=== PATIENT | female | born 1990 | race Caucasian/White ===

== ENCOUNTER 2019-02-10 00:44 | Emergency (ER) | payer OTHER, SELFPAY ==
[2019-02-10 00:45] VITALS: PULSE 67; RESP 14; TEMP 35.8; O2SAT 100; BMI 20.9
--- NOTE | 2019-02-10 00:56 | ED.VIS.GEN ---
History of Present Illness Chief Complaint: Hypoglycemia Narrative: Patient received NovoLog through a insulin pump and over the last few days has had her blood sugars dropping. She is trying to dial back her insulin by 2 units but tonight her had a hard time arousing her in the bed. EMS was called and her blood sugar was 40. They gave a dose of D50. They turn off her insulin pump. She has had diabetes for years. She states that sometimes she runs low in the 50s. She states she does not remember this incident. Currently she feels okay. She does see endocrinology as well. Her insulin short acting NovoLog. Past Medical History - Allergies and Home Meds Allergies/Adverse Reactions: Allergies gluten Allergy (Verified 10/11/17 21:01) Other adhesive tape Adverse Reaction (Verified 02/10/19 01:44) Rash Primary Care Physician: Bertrand Jordan MD [Primary Care Provider] - Prior records reviewed: Yes Past Medical History: - - DM Surgical History: noncontributory Lives: Spouse/ Significant Other Smoking Status: Never smoker Alcohol: None Drugs: None Review of Systems General: Denies: Chills, Fever, Sweats Eyes: Denies: Visual changes - bilaterally, Diplopia ENT: Denies: Rhinorrhea, Sore throat Cardiovascular: Denies: Chest pain, Palpitations Respiratory: Denies: Dyspnea, Cough, Dyspnea on exertion Gastrointestinal: Denies: Abdominal pain, Nausea, Vomiting, Diarrhea, Melena, Hematochezia Genitourinary: Denies: Dysuria, Hematuria, Frequency Musculoskeletal: Denies: Back pain, Extremity Pain Skin: Denies: Rash, Wounds Neurological: Denies: Headache, Weakness, Numbness Physical Exam Vital Signs/Narrative: Vital Signs Temp Pulse Resp Pulse Ox 02/10/19 00:45 96.5 F L 67 14 100 General: Well nourished, Well developed, No Acute Distress Head: Normocephalic, Atraumatic Eyes: Perrl, EOMI ENT: Moist mucous membranes, No rhinorrhea Neck: Supple, Nontender Cardiovascular: Regular rate, Regular rhythm, No murmurs Respiratory: No distress, CTA bilaterally, Chest nontender Abdomen: Soft, Nontender, Nondistended, Normal bowel sounds Back: Nontender, Normal Inspection Extremities: Nontender, No edema Skin: Normal color, No rash, - - Infiltration right antecubital from IV start attempt by EMS this soft tissue swelling and inflammation is on the medial aspect of the right bicep intermediate up and the proximal portion of the right forearm Neurological: Alert, Oriented x3, Cranial nerves II-XII grossly intact, Normal Strength, Normal Sensation Psychological: Normal affect, Normal Mood Diagnostic/Tx/Re-eval - Medical Decision Making Blood sugar 90 in the emergency department. Patient given p.o. Monitored. Blood sugar came back into the 200s. She restarted her insulin is a very low rate. The extravasated D50 was monitored. It caused her some discomfort. Protocol was done with hyaluronidase injection in 5 different points along the area to try to help with the reaction she is having. This area was monitored. It did not get worse. There is no evidence of compartment syndrome. Patient will follow-up as an outpatient. She understands that the inflammation in her arm could last weeks or months to go away. She will follow-up for this. To return if it worsens. ED Disposition - Plan for ED Patient: Disposition: Home or Assisted Living Diagnosis: Hypoglycemic episode in patient with diabetes mellitus, Extravasation injury of IV catheter site with other complication Instructions: ED Diabetes Hypoglycemia Insulin React Referrals: Bertrand Jordan MD [Primary Care Provider] - Additional Instructions: Please follow-up with your family doctor for further evaluation of your swelling in her arm due to the extravasation of dextrose. You were given injections of hyaluronidase to lessen the effect. This can take weeks to months to go away completely
[2019-02-10 01:01] LABS: Bedside Glucose 90 mg/dL (70-110)
--- NOTE | 2019-02-10 01:15 | ED.RN ---
UPON ASSESSMENT OF PT. PT STATES HER RIGHT ARM IS VERY SORE AND PAINFUL. THIS ARM HAD AN IV PLACED IN THE AC BY [facility]. [facility] REPORTS THEY GAVE D50. PT'S ARM IS SWOLLEN AND RED, I AM CONCERNED THAT THE PT'S ARM IS INFILTRATED. NOTIFIED DR. PEREZ. NO NEW ORDERS AT THIS TIME.
[2019-02-10 01:45] VITALS: BP 104/75
[2019-02-10 02:46] VITALS: BP 102/64; PULSE 81; RESP 16; O2SAT 100
--- NOTE | 2019-02-10 02:47 | ED.RN ---
REVIEWED DISCHARGE INSTRUCTIONS AND ANSWER QUESTIONS. REVIEWED SIGNS AND SYMPTOMS WITH ARM PAIN AND/OR PROBLEMS. PT AMBULATED TO LOBBY WITH A STEADY AND INDEPENDENT GAIT WITH SPOUSE. NO IV PLACED BY [facility].
== END 2019-02-10 02:48 | disposition home or self-care (01) ==
PROVIDERS: Emergency Provider Emergency Medicine; Family Provider Family Medicine; PCP Family Medicine
DX: E11.649 Type 2 diabetes mellitus with hypoglycemia without coma (principal); T80.89XA Other complications following infusion, transfusion and therapeutic injection, initial encounter; Z96.41 Presence of insulin pump (external) (internal); Z79.4 Long term (current) use of insulin
CPT/HCPCS: 82962; 90471; 96372; 99283; J3470

== ENCOUNTER → 2025-05-21 | Outpatient (CLI) | payer OTHER, SELFPAY ==
--- NOTE | 2025-05-21 18:08 | CT_ITS ---
PROCEDURE: ABDOMEN/PELVIS WITH CONTRAST 05/21/2025 REASON FOR EXAM: LLQ PAIN TECHNIQUE: ABDOMEN/PELVIS WITH CONTRAST Coronal and Sagittal reconstruction series were provided. CONTRAST: Isovue 300 VOLUME: 99 mL One or more dose reduction techniques were used (e.g., Automated exposure control, adjustment of the mA and/or kV according to patient size, use of iterative reconstruction technique. RADIATION DOSE SUMMARY: CTDlvol: 21 mGy DLP: 380 mGycm COMPARISON: No FINDINGS: Clear lung bases. Normal heart size. Unremarkable liver, gallbladder, pancreas, spleen, adrenal glands, kidneys. No hydronephrosis or ureteral stone. Normal bladder. Normal uterus and left ovary. Status post tubal ligation. Involuting right ovarian cyst. Small pelvic fluid. No retroperitoneal or pelvic adenopathy. No free air. Nondistended bowel. Normal appendix. No acute large bowel findings. No acute abdominal wall findings. CT/Abdomen/Pelvis WITH Contrast IMPRESSION: Recent right ovarian cyst rupture with small pelvic fluid, this can be a cause of pain. Reading Location: [place] [id number]
[2025-05-21 18:33] LABS: CREATININE FINGERSTICK < 1.0 mg/dL (0.55-1.02); EGFR FINGERSTICK > 60.0000 mL/min (>60)
== END | disposition home or self-care (01) ==
LOC: CT 17:51
PROVIDERS: PCP Family Medicine; Referring Provider Physician Assistant; Visit Provider Physician Assistant
DX: R19.7 Diarrhea, unspecified (principal); R10.32 Left lower quadrant pain
CPT/HCPCS: 74177; Q9967

== ENCOUNTER 2025-06-12 07:50 | Day surgery (SDC) | payer OTHER, SELFPAY ==
[2025-06-12] VITALS (9 sets, daily range): BP systolic 97–107; BP diastolic 50–66; PULSE 54–92; RESP 12–16; TEMP 36.4–37.1; O2SAT 99–100; BMI 20.9
[2025-06-12] MEDS: Lactated Ringers 1,000 ML 15 ML IV (08:23)
--- NOTE | 2025-06-12 08:51 | PRE.ANES_ITS ---
ASA Classification* ASA Classification ASA Classification: 2 Assessment & Plan Anesthesia* Anesthesia Assessment Anesthesia Assessment: Discussed sedation and/or anesthesia options, risks, benefits, and alternatives with patient/parents/legal guardian/POA. Questions invited. The patient/parents/legal guardian/POA seems to understand and agrees to proceed with anesthesia plan. Reviewed the physical assessment, medical history, allergy history and patient home medications list prior to surgery/procedure/anesthetic and documented any changes. Performed airway and anesthesia risk assessments. Anesthesia Type Anesthesia Type: MAC History Source History Obtained from:: Patient and Chart Anesthesia Focused Assessment* Temperature: 98.8 F Pulse Rate: 67 Respiratory Rate: 16 Pulse Ox: 100 Oxygen Delivery Method: Room Air Airway Assessment Mouth opens: >3 cm Mallampati Score: I Teeth Condition: Intact Neck Range of motion (ROM): Full ROM Labs Anesthesia Preop lab: CBC WBC 14.3 K/mm3 (4.4-11.0) H 10/11/17 21:40 7 RBC 4.65 M/mm3 (4.2-5.4) 10/11/17 21:40 10/11/17 Hgb 14.8 g/dl (12.0-15.0) 10/11/17 21:40 10/11/17 Hct 42.8 % (37-47) 10/11/17 21:40 10/11/17 Plt Count 210 K/mm3 (150-450) 10/11/17 21:40 10/11/17 CHEMISTRY Potassium 4.3 mmol/L (3.5-5.1) 10/11/17 21:40 10/11/17 Sodium 140 mmol/L (136-145) 10/11/17 21:40 10/11/17 BUN 19 mg/dL (7-18) H 10/11/17 21:40 10/11/17 Creatinine 0.92 mg/dL (0.55-1.02) 10/11/17 21:40 10/11/17 Glucose 157 mg/dL (70-110) H 10/11/17 21:40 10/11/17 POC Glucose 90 mg/dL (70-110) 02/10/19 00:53 02/10/19 COAG Pre-Assessment Diagnosis/Proposed Procedure Planned Operative Procedure(s): Colonoscopy Anesthesia History 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 When Was Last Pacemaker Check QUESTION #4 FULL TEXT: You/Your Family Experience fever (hyperthermia) with Anesthesia Last Oral Intake Last Oral intake: Last Oral Intake NPO since 19:45 06/12/25 08:16 Meds taken in AM with sips of No 06/12/25 08:16 water? Meds patient instructed to take am of surgery PONV PONV - printer repair technician: PONV - printer repair technician Female Yes 06/07/25 13:01 HX of Motion Sickness Yes 06/07/25 13:01 HX of N/V After Surgery No 06/07/25 13:01 Non-Smoker Yes 06/07/25 13:01 Duration of Surgery greater No 06/07/25 13:01 than 60 minutes Number of Risk Factors 3 06/07/25 13:01 PONV Score Moderate Risk 06/07/25 13:01 Height & Weight Height & Weight: Anesthesia: Height & Weight Height 5 ft 5 in 06/12/25 08:16 Weight: 57 kg 06/12/25 08:16 Body Mass Index (BMI) 20.9 06/12/25 08:16 Respiratory Assessment Respiratory Assessment - printer repair technician: Respiratory Tract Infection Hx - printer repair technician Hx Respiratory Tract Infection No 06/07/25 13:01 STOP Sleep Apnea STOP Sleep Apnea - printer repair technician: STOP Sleep Apnea - printer repair technician Hx Hypertension No 06/07/25 13:01 Hx Sleep Apnea No 06/07/25 13:01 CPAP BIPAP Do you snore loudly (louder No 06/07/25 13:01 than talking or can be heard Do you often feel tired/ No 06/07/25 13:01 fatigued/ sleepy during daytime? Has anyone observed you stop No 06/07/25 13:01 breathing during sleep? STOP Results Negative 06/07/25 13:01 QUESTION #5 FULL TEXT : Do you snore loudly (louder than talking or can be heard through closed doors)? 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 Specify any problems Hx of Preganancy in last 3 No 06/07/25 13:01 Months Nurse Filling Out Transfusion JZOLLINGE 06/07/25 13:01 & Questions: Date: 06/07/25 06/07/25 13:01 Time: 13:02 06/07/25 13:01 Patient unable to answer at this time (ie. confused, unrespo /Reproduction History /Reproductive History - printer repair technician: /Reproductive Hx- printer repair technician Hx Now No 06/07/25 13:01 Gestational Age (in weeks): EDC: Hx Hx Para Hx Section SAB No 06/07/25 13:01 Active Medications Active Medications: Current Medications Generic Name Dose Route Start Last Admin Trade Name Bishopq PRN Reason Stop Dose Admin Lactated Ringer's 1,000 mls @ 15 mls/hr 06/12/25 08:15 06/12/25 08:23 IV 15 mls/hr .Q48H ANDREW Administration PFSH Medical History Insulin dependent diabetes mellitus Loss of consciousness Dietary restriction Non-smoker Celiac disease Home Medications ?Medication ?Instructions ?Recorded ?Last Taken ?Type insulin lispro 100 unit/mL 1 sliding scale dose SQ NATHAN LY 02/10/19 Unknown History subcutaneous solution (Humalog U-100 Insulin) Allergy/AdvReac Type Severity Reaction Status Date / Time gluten Allergy Other Verified 06/07/25 12:56 adhesive tape AdvReac Rash Verified 06/07/25 12:56 Family History Mother Osteoporosis Skin cancer Thyroid disorder Father Cancer throat Surgical History (Updated 06/12/25 @ 08:[address] Kevin Vazquez MD) H/O esophagogastroduodenoscopy Encounter for Essure implantation Social History Smoking Status: Never smoker Review of Systems (Anesthesia) ROS Narrative System reviewed and no additional complaints, except as documented.
--- NOTE | 2025-06-12 09:00 | COLBX_PTH ---
PATIENT: KRISTOPHER WALSH LOC: EN U#:[id number] AGE/SX: 34/F ROOM: RE06/12/[address]: Dr. Vinay Ochoa MD : 1990 BED: DIS: 06/12/2025 SPEC #: [id number] RECD: 06/12/25 10:19 STATUS: SEBASTIAN REQ #: [id number] PERLA: 06/12/25 09:[address]: Vinay Ochoa DEPT: SURGICAL PATHOLOGY RECD BY: Michael Lance ENTERED: 06/12/25 14:54 SP TYPE: COLON BX OTHR DR: Dr. Bertrand Jordan MD Tissues: A - COLON BIOPSY Procedures: Trichrome (control) Special Stain Group I Surgery Specimen Level IV HEADER OPERATION: Colonoscopy, biopsy PRE-OP DIAGNOSIS: Encounter for screening for malignant neoplasm of colon, diarrhea TISSUE SUBMITTED: A- Random colonic biopsy MICROSCOPIC DIAGNOSIS A. Colon, random, biopsy: - Focal active colitis with patchy intraepithelial lymphocytosis - see note. - Trichrome stain is negative for significant thickening of the subepithelial collagen table. Note: The findings are suggestive of lymphocytic (microscopic) colitis. The differential diagnosis includes infection and medication injury reaction. Recommend correlation with clinical and endoscopic findings. MICROSCOPIC DESCRIPTION Slides are reviewed. All matched controls reacted appropriately. These tests were developed and their performance characteristics determined by [facility]. They may not have been cleared or approved by the U.S. Food and Drug Administration. The FDA has determined that such clearance or approval is not necessary.? The above immunohistochemical?markers are reviewed by the Pathologist. GROSS DESCRIPTION A. Received in fixative is one container labeled with the patient's name and designated Random colon biopsy. The specimen consists of multiple irregular fragments of light bella soft tissue that in aggregate measure 1 x 0.6 x 0.1 cm. The specimen is totally submitted in one cassette. OK 06/12/2025 CPT:71630,11180
--- NOTE | 2025-06-12 09:10 | HP.PCM_ITS ---
HPI - General General Date of Admission: 06/12/25 Date of Service: 06/12/25 Chief Complaint: diarrhea HPI Narrative KRISTOPHER WALSH, is a 34 F who presents for colonoscopy The patient is a 34-year-old female who is being seen today for colonoscopy to further evaluate ongoing issues with diarrhea. She has undergone numerous stool studies without abnormality. She also underwent a recent CT scan that was normal as well. [facility] Medical History (Updated 06/12/25 @ 08:[address] Kevin Vazquez MD) Insulin dependent diabetes mellitus Loss of consciousness Dietary restriction Non-smoker Celiac disease Home Medications ?Medication ?Instructions ?Recorded ?Last Taken ?Type insulin lispro 100 unit/mL 1 sliding scale dose SQ NATHAN LY 02/10/19 Unknown History subcutaneous solution (Humalog U-100 Insulin) Allergy/AdvReac Type Severity Reaction Status Date / Time gluten Allergy Other Verified 06/07/25 12:56 adhesive tape AdvReac Rash Verified 06/07/25 12:56 Family History Mother Osteoporosis Skin cancer Thyroid disorder Father Cancer throat Surgical History (Updated 06/12/25 @ 08:[address] Kevin Vazquez MD) H/O esophagogastroduodenoscopy Encounter for Essure implantation Social History Smoking Status: Never smoker Vital Signs Vital Signs Vital Signs: 06/12/25 08:16 06/12/25 08:16 06/12/25 08:59 Temperature 98.8 F 98.8 F Temperature Source Temporal Pulse Rate 67 67 Respiratory Rate 16 16 Respiratory Pattern Normal Blood Pressure Source Monitor Blood Pressure Position Sitting Blood Pressure Location Left Arm Pulse Ox 100 100 Oxygen Delivery Method Room Air Room Air Weight Weight: 125 lb 10.616 oz Body Mass Index (BMI) 20.9 Physical Exam Const alert, oriented x3 and no apparent distress Assessment & Plan Assessment/Plan (1) Encounter for screening for malignant neoplasm of colon: (2) Diarrhea:
--- NOTE | 2025-06-12 09:55 | OP.PROVAT_ITS ---
06/12/2025 Bertrand Jordan Re : Colonoscopy procedure for Eve Eastman Dear Julian This procedure was performed on Thursday, June 12, 2025. My impressions and recommendations are as follows: Impressions : - Erythematous mucosa in the ascending colon. - The examination was otherwise normal on direct and retroflexion views. - Multiple biopsies were obtained in the entire colon. Recommendations : - Discharge patient to home (ambulatory). - High fiber diet. - Await pathology results. - Repeat colonoscopy for surveillance based on pathology results. - Return to my office PRN. - Continue present medications. My findings are described in the full procedure note, which is enclosed. If I can be of further assistance, please feel free to contact me at . Sincerely, Vinay Ochoa MD 06/12/2025 9:54:24 AM This report has been signed electronically.
--- NOTE | 2025-06-12 09:55 | OP.COLON_ITS ---
Patient Name: Eve Eastman Procedure Date: 06/12/2025 9:10 AM Date of : 1990 Age: 34 Procedure: Colonoscopy Indications: Clinically significant diarrhea of unexplained origin Providers: Vinay Ocoha MD Referring MD: Bertrand Jordan Medicines: Monitored Anesthesia Care Patient Profile: Refer to note in patient chart for documentation of history and physical. Patient has symptoms of chronic diarrhea. Last Colonoscopy: none. The patient's first colonoscopy is today. Complications: No immediate complications. Estimated blood loss: None. Procedure: Pre-Anesthesia Assessment: - Prior to the procedure, a History and Physical was performed, and patient medications and allergies were reviewed. The patient's tolerance of previous anesthesia was also reviewed. The risks and benefits of the procedure and the sedation options and risks were discussed with the patient. All questions were answered, and informed consent was obtained. Prior Anticoagulants: The patient has taken no anticoagulant or antiplatelet agents. ASA Grade Assessment: I - A normal, healthy patient. After reviewing the risks and benefits, the patient was deemed in satisfactory condition to undergo the procedure. After I obtained informed consent, the scope was passed under direct vision. Throughout the procedure, the patient's blood pressure, pulse, and oxygen saturations were monitored continuously. The colonoscope was introduced through the anus and advanced to the cecum, identified by appendiceal orifice and ileocecal valve. The ileocecal valve, appendiceal orifice, and rectum were photographed. The entire colon was well visualized. The colonoscopy was performed without difficulty. The patient tolerated the procedure well. The quality of the bowel preparation was adequate. Moderate Sedation: See the other procedure note for documentation of moderate sedation with intraservice time. Scope In: 9:21:46 AM Scope Withdrawal Time 0 hours 11 minutes 24 seconds Scope Out: 9:47:56 AM Total Procedure Duration Time 0 hours 26 minutes 10 seconds Findings: The perianal and digital rectal examinations were normal. A segmental area of mildly erythematous mucosa was found in the ascending colon. Multiple biopsies were obtained with cold forceps for diagnostic purposes randomly in the entire colon. Verification of patient identification for the specimen was done by the nurse using the patient's name, date and medical record number. Estimated blood loss was minimal. The exam was otherwise without abnormality on direct and retroflexion views. Impression: - Erythematous mucosa in the ascending colon. - The examination was otherwise normal on direct and retroflexion views. - Multiple biopsies were obtained in the entire colon. Recommendation: - Discharge patient to home (ambulatory). - High fiber diet. - Await pathology results. - Repeat colonoscopy for surveillance based on pathology results. - Return to my office PRN. - Continue present medications. Procedure Code(s): --- Professional --- 52407, Colonoscopy, flexible; with biopsy, single or multiple Diagnosis Code(s): --- Professional --- R19.7, Diarrhea, unspecified K63.89, Other specified diseases of intestine CPT copyright 2021 [employer]. All rights reserved. The codes documented in this report are preliminary and upon airline mechanic review may be revised to meet current compliance requirements. Vinay Ochoa MD 06/12/2025 9:54:24 AM This report has been signed electronically. Number of Addenda: 0 Note Initiated On: 06/12/2025 9:10 AM
--- NOTE | 2025-06-12 09:57 | PCM.POST.ANE ---
Anesthesia: Postop Eval I Current Vital Signs Temperature: 97.8 F Pulse Rate: 78 Blood Pressure: 104/66 Respiratory Rate: 16 Pulse Ox: 99 Oxygen Delivery Method: Room Air Assessment Airway patent: Yes Spontaneous unlabored respirations: Yes Mental status: Awake nausea: No Vomiting: No Anesthesia Complication: No Fluid Hydration Crystalloid volume administer (ml): 600 Total IV fluid infused: 600 Progress Note Anesthesia document: Postop Eval 1 completed: Yes
== END 2025-06-12 10:38 | disposition home or self-care (01) ==
LOC: EN 07:50 → AC 07:51
PROVIDERS: PCP Family Medicine; Referring Provider Family Medicine; Visit Provider Surgery
PROC: 0DJD8ZZ Inspection of Lower Intestinal Tract, Via Natural or Artificial Opening Endoscopic (ICD-10-PCS; CPT 45378; principal; 2025-06-12 08:55)
DX: Z12.11 Encounter for screening for malignant neoplasm of colon (principal); E11.9 Type 2 diabetes mellitus without complications; Z79.4 Long term (current) use of insulin; K52.9 Noninfective gastroenteritis and colitis, unspecified; K90.0 Celiac disease
CPT/HCPCS: 45380; 88305; 88312; J2405

== ENCOUNTER → 2025-10-13 | Outpatient (CLI) | payer OTHER, SELFPAY ==
--- OUTSIDE RECORDS SUMMARY | 2025-10-13 08:24 | XMS RPT_ITS | CCD ---
Author Organization [facility] Care Team Providers Care Mold Designer Name Role Phone Bertrand Wallace MD Primary Care Provider Carlos OLIVAS, Mckenna Unavailable Uvaldo MORA, Clover Unavailable Unavailable MAIKEL FRANCOIS Attending Unavailable MAIKEL FRANCOIS Primary Care Unavailable MAIKEL FRANCOIS Admitting Unavailable Bertrand Wallace MD Primary Care Provider Carlos OLIVAS, Mckenna Unavailable Uvaldo MORA, Clover Unavailable Unavailable Sean MORA, Maribell Unavailable Unavailable Haagen SENIOR ACTUARIAL ANALYST.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 CLERK, Kelly Unavailable Suppan SENIOR ACTUARIAL ANALYST.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 CLERK, Marielos A Unavailable [phone] Suppan SENIOR ACTUARIAL ANALYST.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 CLERK, Marielos A Unavailable Health, Employee Attending Provider Dr. Bertrand Wallace MD Primary Care Provider Maya Swartz Attending Provider Maya Swartz Referring Provider Dr. Bertrand Wallace MD Referring Provider Dr. Vinay Ochoa MD Attending Provider Bertrand Wallace Primary Care Unavailable Bertrand Wallace Referring Unavailable Vinay Ochoa Attending Unavailable Bertrand Wallace Primary Care Unavailable Maya Swartz Attending Unavailable Maya Swartz Referring Unavailable Assessment, Health Risk Attending Unavaila ble Assessment, Health Risk Referring Unavaila ble Bertrand Wallace Primary Care Unavailable Bertrand Wallace Primary Care Unavailable Bertrand Wallace Referring Unavailable Vinay Ochoa Attending Unavailable Bertrand Wallace Primary Care Unavailable Vinay Ochoa Attending Unavailable JEANNA MCQUEEN Attending Unavailable BERTRAND WALLACE Primary Care Unavailable MAYA ROTHMAN Attending Unavailable BERTRAND WALLACE Primary Care Unavailable MAYA ROTHMAN Referring Unavailable BERTRAND WALLACE Primary Care Unavailable Allergies Allergy Classification Reported Allergen(s) Allergy Type Date of Onset Reaction(s) Facility (16 sources) Adhesive agent; Translations: [ADHESIVE] Drug Allergy 7 Rash, Itching [facility] (20 sources) Wheat gluten extract; Translations: [GLUTEN] Drug Allergy 3 Other: See Comments [facility] Work Phone: (20 sources) Adhesive agent Drug Allergy 7 Rash, Itching [facility] (4 sources) Adhesive Tape; Translations: [adhesive tape] Propensity to adverse reactions [address] [facility] (1 source) Gluten Drug allergy (disorder) [address] [facility] Repository Medications Current Medications Medication Drug Class(es) Dates Sig (Normalized) Sig (Original) atropine sulfate 0.025 mg / diphenoxylate hydrochloride 2.5 mg oral tablet (3 sources) Anticholinergic, Cholinergic Muscarinic Antagonist, Antidiarrheal Start: 05-15-2025 End: 05-22-2025 take 1 tablet by mouth once at bedtime diphenoxylate-atr opine (LOMOTIL) 2.5-0.025 mg per tablet Indications: Diarrhea, unspecified type , Left lower quadrant abdominal pain Take 1 tablet by mouth before meals and at bedtime for 7 days. 28 tablet 05/15/2025 Active benoxinate hydrochloride 4 mg/ml / fluorescein sodium 3 mg/ml ophthalmic solution (4 sources) Diagnostic Dye Start: 05-10-2025 End: 05-11-2025 fluorescein-benox inate 0.3-0.4 % 1 drop (FLURESS) Start: 05-10-2025 End: 05-11-2025 1 drop, BOTH EYES, DIRECT ED, Starting on Estefania 05/10/25 at 1430, Until Wed05/11/25 at 0229, Administer for applanation tonometry. In the event of a Fluress shortage, administer [place]-Fluor 1 drop into both eyes as directed for applanation tonometry Start: 05-09-2024 End: 05-10-2024 fluorescein-benoxinate 0.3-0 .4 % 1 Drop (FLURESS) Blood-Glucose Meter (CONTOUR METER) monitoring kit (2 sources) Start: 04-11-2025 End: 04-12-2025 Blood-Glucose Meter (CONTOUR METER) monitoring kit 1 each as needed for up to 1 day. 1 each 04/11/2025 04/12/2025 Active Blood-Glucose Meter (CONTOUR NEXT METER) (1 source) Start: 07-06-2025 Blood-Glucose Meter (CONTOUR NEXT METER) Indications: Controlled diabetes mellitus type 1 without complications (HCC) Use to test blood glucose as directed. 1 each 07/06/2025 Active Blood-Glucose Sensor (DEXCOM G7 SENSOR) faustino (5 sources) Start: 11-06-2024 End: 11-16-2024 Blood-Glucose Sensor (DEXCOM G7 SENSOR) faustino 1 Each as directed for 10 days. 9 Each 3 11/06/2024 11/16/2024 Active Start: 08-08-2024 End: 08-18-2024 Blood-Glucose Sensor (DEXCOM G7 SENSOR) faustino 1 Each as directed for 10 days. 9 Each 3 08/08/2024 08/18/2024 Active enteric contrast (will be provided with radiology test) (1 source) Start: 05-15-2025 End: 05-16-2025 enteric contrast (will be provided with radiology test) For CT ABD/PEL W IVCON Routine order Administer, As Directed One Time Only, via Oral, Rectal, both Oral and Rectal, Enteric Tube, Stoma or Indwelling Catheter, Enteric Contrast as designated per enteric contrast guidelines 1 each 05/15/2025 05/16/2025 Active glucagon 3 mg nasal powder (20 sources) Antihypoglycemic Agent Start: 10-14-2022 End: 11-06-2024 glucagon (BAQSIMI) 3 mg/actuation nasal spray Use 1 [place] in the nose as needed for low blood sugar. May repeat after 15 minutes using a new device if there is no response. 2 Each 3 11/06/2024 Active Start: 08-11-2021 End: 10-14-2022 glucagon HCl (GLUCAGON, HCL, EMERGENCY KIT) 1 mg solr Use as directed 1 Each 1 08/11/2021 10/14/2022 Discontinued Comment on above: Use as directed Use 1 [place] in the n ose as needed for low blood sugar. May repeat after 15 minutes using a new device if there is no response. insulin aspart, human 100 unt/ml injectable solution (4 sources) Insulin Analog Start: 08-09-2024 insulin aspart, niacinamide, (FIASP) 100 unit/mL soln use as directed via insulin pump with max of 60 units daily 100 mL 3 08/09/2024 Active Start: 08-08-2024 End: 08-08-2024 Insulin Aspart (NOVOLOG) 100 unit/mL crtg Indications: Controlled diabetes mellitus type 1 without complications (HCC) , Insulin pump in place use as directed via insulin pump with max of 50 units 100 mL 3 08/08/2024 08/08/2024 Discontinued 3 ml insulin glargine 100 unt/ml pen injector (20 sources) Insulin Analog Start: 09-24-2023 End: 09-23-2024 insulin glargine (LANTUS SOLOSTAR U-100 INSULIN) 100 unit/mL (3 mL) Indications: Controlled diabetes mellitus type 1 without complications (HCC) Inject 50 Units subcutaneously once daily. In case of pump failure. 5 Each 09/24/2023 Active Start: 09-24-2023 End: 09-23-2024 insulin glargine (LANTUS RIGO OSTAR U-100 INSULIN) 100 unit/mL (3 mL) Indications: Controlled diabetes mellitus type 1 without complications (HCC) Inject 50 Units subcutaneously once daily. In case of pump failure. 5 Each 09/24/2023 09/23/2024 Active Start: 04-29-2022 End: 04-29-2023 insulin glargine (LANTUS RIGO OSTAR U-100 INSULIN) 100 unit/mL (3 mL) Indications: Controlled diabetes mellitus type 1 without complications (HCC) Inject 50 Units subcutaneously once daily. In case of pump failure. 5 Pen 04/29/2022 Active Start: 04-15-2020 End: 04-29-2023 insulin glargine (LANTUS RIGO OSTAR U-100 INSULIN) 100 unit/mL (3 mL) Indications: Controlled diabetes mellitus type 1 without complications (HCC) Inject 50 Units subcutaneously once daily. In case of pump failure. 04/15/2020 04/29/2022 Discontinued Comment on above: Inject 50 Units subc utaneously once daily. In case of pump failure. insulin lispro 100 unt/ml injectable solution (20 sources) Insulin Analog Start: 08-10-2024 End: 11-06-2024 insulin lispro (HUMALOG U-100 INSULIN) 100 unit/mL injection USE DIRECTED VIA INSULIN PUMP-MAX IS 60 UNITS DAILY 100 mL 4 11/06/2024 Active Start: 09-24-2023 insulin lispro (HUMALOG KWIKPEN INSULIN) 100 unit/mL Use as directed. Max dosage up to 50 units per day. 5 Each 11 09/24/2023 Active Start: 03-18-2023 End: 08-09-2024 insulin lispro 100 unit/mL injection Indications: Controlled diabetes mellitus type 1 without complications (HCC) , Insulin pump in place use as directed via insulin pump with max of 50 units daily 100 mL 4 08/08/2024 08/09/2024 Discontinued (Not on Formulary) Start: 10-22-2020 End: 01-12-2022 insulin lispro (HUMALOG U-10 0 INSULIN) 100 unit/mL injection USE DIRECTED VIA INSULIN PUMP-MAX IS 50 UNITS DAILY 50 mL 4 01/12/2022 Active Start: 07-05-2020 End: 09-22-2023 insulin lispro (HUMALOG KWIK PEN INSULIN) 100 unit/mL Use as directed. Max dosage up to 50 units per day. 5 Pen 07/05/2020 04/29/2022 Discontinued Start: 02-10-2019 inject 1 dose by sub cutaneous injection once daily Insulin Lispro (Humalog U-100 Insulin) 100 UNIT/ML solution Active 1 sliding scale dose SQ DAILY February 10, 2019 12:00am INSULIN PUMP Comment on above: Use as directed. Max dosage up to 50 units per day. USE DIRECTED VIA INSULIN PUMP-MAX IS 50 UNITS DAILY insulin pump cart,auto,BT,G6/7 (OMNIPOD 5 G6-G7 PODS, GEN 5,) crtg (20 sources) Start: 11-06-2024 insulin pump cart,auto,BT,G6/7 (OMNIPOD 5 G6-G7 PODS, GEN 5,) crtg Inject 1 Each subcutaneously every 72 hours. 30 Each 3 11/06/2024 Active Start: 06-19-2024 insulin pump c art,auto,BT,G6/7 (OMNIPOD 5 G6-G7 PODS, GEN 5,) crtg Inject 1 Each subcutaneously every 72 hours. 9 Each 06/19/2024 Active insulin pump cart,auto,BT-cn tr (OMNIPOD 5 G6 INTRO KIT, GEN 5,) crtg (20 sources) Start: 07-27-2022 insulin pump c art,auto,BT-cntr (OMNIPOD 5 G6 INTRO KIT, GEN 5,) crtg Indications: Controlled diabetes mellitus type 1 without complications (HCC) , Insulin pump in place Inject 1 Each subcutaneously once daily. 1 Each 07/27/2022 Active Start: 07-27-2022 insulin pump c art,auto,BT-cntr (OMNIPOD 5 G6 INTRO KIT, GEN 5,) crtg Indications: Controlled diabetes mellitus type 1 without complications (HCC) , Insulin pump in place Inject 1 Each subcutaneously once daily. 1 Each 0 07/27/2022 Active Comment on above: Inject 1 Each subcut aneously once daily. insulin pump cart,automated,BT (OMNIPOD 5 G6 PODS, GEN 5,) crtg (20 sources) Start: 08-08-2024 insulin pump cart,automated,BT (OMNIPOD 5 G6 PODS, GEN 5,) crtg Indications: Controlled diabetes mellitus type 1 without complications (HCC) , Insulin pump in place Inject 1 Each subcutaneously every 72 hours. 30 Each 3 08/08/2024 Active Start: 08-27-2023 End: 08-08-2024 insulin pump cart,automated, BT (OMNIPOD 5 G6 PODS, GEN 5,) crtg Indications: Controlled diabetes mellitus type 1 without complications (HCC) , Insulin pump in place Inject 1 Each subcutaneously every 72 hours. 30 Each 3 08/27/2023 08/08/2024 Discontinued Start: 08-27-2023 insulin pump c art,automated,BT (OMNIPOD 5 G6 PODS, GEN 5,) crtg Indications: Controlled diabetes mellitus type 1 without complications (HCC) , Insulin pump in place Inject 1 Each subcutaneously every 72 hours. 30 Each 3 08/27/2023 Active Start: 02-08-2023 insulin pump c art,automated,BT (OMNIPOD 5 G6 PODS, GEN 5,) crtg Indications: Controlled diabetes mellitus type 1 without complications (HCC) , Insulin pump in place Inject 1 Each subcutaneously every 72 hours. 30 Each 02/08/2023 Active Start: 01-29-2023 End: 02-08-2023 insulin pump cart,automated, BT (OMNIPOD 5 G6 PODS, GEN 5,) crtg Indications: Controlled diabetes mellitus type 1 without complications (HCC) , Insulin pump in place Inject 1 Each subcutaneously every 72 hours. 90 Each 01/29/2023 02/08/2023 Discontinued Start: 01-29-2023 insulin pump c art,automated,BT (OMNIPOD 5 G6 PODS, GEN 5,) crtg Indications: Controlled diabetes mellitus type 1 without complications (HCC) , Insulin pump in place Inject 1 Each subcutaneously every 72 hours. 90 Each 01/29/2023 Active Start: 12-31-2022 End: 01-29-2023 insulin pump cart,automated, BT (OMNIPOD 5 G6 PODS, GEN 5,) crtg Indications: Controlled diabetes mellitus type 1 without complications (HCC) , Insulin pump in place Inject 1 Each subcutaneously every 72 hours. 30 Each 12/31/2022 01/29/2023 Discontinued Start: 12-31-2022 insulin pump c art,automated,BT (OMNIPOD 5 G6 PODS, GEN 5,) crtg Indications: Controlled diabetes mellitus type 1 without complications (HCC) , Insulin pump in place Inject 1 Each subcutaneously every 72 hours. 30 Each 12/31/2022 Active Start: 07-27-2022 insulin pump c art,automated,BT (OMNIPOD 5 G6 PODS, GEN 5,) crtg Indications: Controlled diabetes mellitus type 1 without complications (HCC) , Insulin pump in place Inject 10 Each subcutaneously every 72 hours. 10 Each 07/27/2022 Active Comment on above: Inject 10 Each subcu taneously every 72 hours. Inject 1 Each subcut aneously every 72 hours. iv contrast (will be provided with radiology test) (1 source) Start: 05-15-2025 End: 05-16-2025 iv contrast (will be provided with radiology test) CT ABD/PEL -Inject, intravenously, once for 1 dose.No IV access, insert saline lock prior to the beginning of sedation, infusion, injection of imaging exam. Discontinue saline lock post exam. If Pt. has a central line or IVAD, may access for administration according to line specific nursing protocol. Once exam is complete flush line and de-access according to line specific nursing protocol in theCT contrast administration guidelines link. 1 each 05/15/2025 05/16/2025 Active levonorgestrel 0.538752 mg/hr intrauterine system (20 sources) Progestin, Progestin-containing Intrauterine Device Start: 12-29-2022 End: 12-28-2027 levonorgestrel (MIRENA) 21 mcg/24 hours (8 yrs) 52 mg IUD Indications: Encounter for IUD insertion 1 Each by INTRAUTERINE route as directed. 1 Each 12/29/2022 12/28/2027 Active Start: 01-12-2018 End: 01-12-2023 levonorgestrel (MIRENA) 20 m cg/24 hr (5 years) IUD Inserted in office 1 Each 01/12/2018 12/15/2022 Discontinued (Course of therapy completed) Comment on above: Inserted in office 1 Each by INTRAUTERI NE route as directed. MULTIVITAMIN ORAL (20 sources) MULTIVITAMIN ORA L Indications: Type I (juvenile type) diabetes mellitus without mention of complication, not stated as uncontrolled (HCC) Take by mouth. Active MULTIVITAMIN ORA L Indications: Type I (juvenile type) diabetes mellitus without mention of complication, not stated as uncontrolled (HCC) Take by mouth. 0 Active Comment on above: Take by mouth. omega-3 fatty acids(FISH OIL 500 MG CAP) (20 sources) Start: 03-05-20 10 omega-3 fatty acids(FISH OIL 500 MG CAP) Take one(1) capsule daily. 0 03/05/2010 Active Comment on above: Take one(1) capsule daily. ondansetron 4 mg disintegrating oral tablet (20 sources) Serotonin-3 Receptor Antagonist Start: 09-24-20 take 1 tablet by mouth every six hours as needed for nausea ondansetron orally disintegrating (ZOFRAN ODT) 4 mg disintegrating tablet Indications: Celiac disease (HCC) , Controlled diabetes mellitus type 1 without complications (HCC) Take 1 tablet by mouth every 6 hours as needed for nausea/vomiting. 20 tablet 09/24/2023 Active Start: 11-17-2021 End: 09-22-2023 take 1 tablet by mouth every six hours as needed for nausea ondansetron orally disintegrating (ZOFRAN ODT) 4 mg disintegrating tablet Indications: Celiac disease , Controlled diabetes mellitus type 1 without complications (HCC) Take 1 tablet by mouth every 6 hours as needed for nausea/vomiting. 20 tablet 0 11/17/2021 09/22/2023 Discontinued Start: 02-10-2019 End: 07-29-2021 take 1 tablet by mouth every six hours as needed for nausea ondansetron orally disintegrating (ZOFRAN ODT) 4 mg disintegrating tablet Indications: Celiac disease , Controlled diabetes mellitus type 1 without complications (HCC) Take 1 tablet by mouth every 6 hours as needed for Nausea/Vomiting. 20 tablet 02/10/2019 07/29/2021 Discontinued Comment on above: Take 1 tablet by ladonna every 6 hours as needed for nausea/vomiting. phenylephrine hydrochloride 25 mg/ml ophthalmic solution (5 sources) alpha-1 Adrenergic Agonist Start: 05-10-2025 End: 05-11-2025 PHENYLephrine 2.5 % 1 drop (AK-DILATE, ABDELRAHMAN-SYNEPHRINE) Start: 05-10-2025 End: 05-11-2025 1 drop, BOTH EYES, DIRECT ED, Starting on Estefania 05/10/25 at 1430, Until Wed05/11/25 at 0229, Administer for dilation PROTECT FROM LIGHT Start: 05-09-2024 End: 05-10-2024 PHENYLephrine 2.5 % 1 Drop ( AK-DILATE, ABDELRAHMAN-SYNEPHRINE) Start: 04-09-2023 End: 04-09-2023 PHENYLephrine 2.5 % 1 Drop ( AK-DILATE, ABDELRAHMAN-SYNEPHRINE) proparacaine hydrochloride 5 mg/ml ophthalmic solution (3 sources) Local Anesthetic Start: 05-09-2024 End: 05-10-2024 proparacaine 0.5 % 1 Drop (ALCAINE) Start: 04-09-2023 End: 04-09-2023 proparacaine 0.5 % 1 Drop (A LCAINE) Start: 01-21-2022 End: 01-22-2022 proparacaine 0.5 % 1 Drop (A LCAINE) sulfamethoxazole 800 mg / trimethoprim 160 mg oral tablet (2 sources) Dihydrofolate Reductase Inhibitor Antibacterial, Sulfonamide Antimicrobial Start: 06-07-2024 End: 06-10-2024 take 1 tablet by mouth twice daily sulfamethoxazole-trimethoprim (BACTRIM DS) 800-160 mg per tablet Indications: Dysuria Take 1 tablet by mouth two times a day for 3 days. 6 tablet 0 06/07/2024 06/10/2024 Active tropicamide 10 mg/ml ophthalmic solution (6 sources) Anticholinergic Start: 05-10-2025 End: 05-11-2025 tropicamide 1 % 1 drop (MYDRIACYL) Start: 05-10-2025 End: 05-11-2025 1 drop, BOTH EYES, DIRECT ED, Starting on Estefania 05/10/25 at 1430, Until Wed05/11/25 at 0229, Administer for dilation Start: 05-09-2024 End: 05-10-2024 tropicamide 1 % 1 Drop (MYDR IACYL) Start: 04-09-2023 End: 04-09-2023 tropicamide 1 % 1 Drop (MYDR IACYL) Start: 01-21-2022 End: 01-22-2022 tropicamide 1 % 1 Drop (MYDR IACYL) Completed/Discontinued Medications Medication Drug Class(es) Dates Sig (Normalized) Sig (Original) Blood-Glucose Meter (ONETOUCH VERIO FLEX METER) (20 sources) Start: 05-07-2023 End: 04-11-2025 Blood-Glucose Meter (ONETOUCH VERIO FLEX METER) Indications: Controlled diabetes mellitus type 1 without complications (HCC) 1 Each as needed. 1 Each 05/17/2023 3:22 PM EDT 05/07/2023 04/11/2025 Discontinued (Changing Therapy/Dosage Form) Start: 05-07-2023 Blood-Glucose Meter (ONETOUCH VERIO FLEX METER) Indications: Controlled diabetes mellitus type 1 without complications (HCC) 1 Each as needed. 1 Each 05/17/2023 3:22 PM EDT 05/07/2023 Active Start: 05-07-2023 Blood-Glucose Meter (ONETOUCH VERIO FLEX METER) Indications: Controlled diabetes mellitus type 1 without complications (HCC) 1 Each as needed. 1 Each 05/07/2023 Active Start: 05-07-2023 Blood-Glucose Meter (ONETOUCH VERIO FLEX METER) Indications: Controlled diabetes mellitus type 1 without complications (HCC) 1 Each as needed. 1 Each 0 05/07/2023 Active Comment on above: 1 Each as needed. Blood-Glucose Meter (ONETOUCH VERIO METER) (1 source) Start: 05-07-2023 Blood-Glucose Meter (ONETOUCH VERIO METER) Indications: Controlled diabetes mellitus type 1 without complications (HCC) 1 Each as needed. Dispense One Kit - Verio Meter Kit Dx: Type 1 DM - Controlled E10.9 1 Each 0 05/07/2023 Active Comment on above: 1 Each as needed. Di spense One Kit - Verio Meter Kit Dx: Type 1 DM - Controlled E10.9 Blood-Glucose Meter (ONETOUCH VERIO SYSTEM) misc (20 sources) Start: 10-19-2019 End: 05-07-2023 Blood-Glucose Meter (ONETOUCH VERIO SYSTEM) misc 1 Each as needed. Dispense One Kit - Verio Meter Kit Dx: Type 1 DM - Controlled E10.9 1 Each 10/19/2019 05/07/2023 Discontinued Start: 10-19-2019 End: 05-07-2023 Blood-Glucose Meter (ONETOUC H VERIO SYSTEM) misc 1 Each as needed. Dispense One Kit - Verio Meter Kit Dx: Type 1 DM - Controlled E10.9 1 Each 0 10/19/2019 05/07/2023 Discontinued Start: 10-19-2019 Blood-Glucose Meter (ONETOUCH VERIO SYSTEM) misc 1 Each as needed. Dispense One Kit - Verio Meter Kit Dx: Type 1 DM - Controlled E10.9 1 Each 0 10/19/2019 Active Comment on above: 1 Each as needed. Di spenslion One Kit - Verio Meter Kit Dx: Type 1 DM - Controlled E10.9 24 hr buPROPion hydrochloride 150 mg extended release oral tablet (20 sources) Aminoketone Start: 3 End: 4 take 1 tablet by mouth once daily buPROPion XL (WELLBUTRIN XL) 150 mg 24 hr tablet Take 1 tablet by mouth once daily. 90 tablet 1 07/26/2023 02/14/2024 Discontinued Start: 02-04-2023 take 1 tablet by ladonna th once daily buPROPion XL (WELLBUTRIN XL) 300 mg 24 hr tablet Indications: Adjustment reaction with anxiety and depression Take 1 tablet by mouth once daily. TAKE ALONG WITH 150 MG TAB FOR A TOTAL OF 450 MG DAILY (11/19/2022) 90 tablet 3 02/04/2023 Active Start: 10-15-2022 take 1 tablet by ladonna th once daily buPROPion XL (WELLBUTRIN XL) 150 mg 24 hr tablet Take 1 tablet by mouth once daily. 90 tablet 1 10/15/2022 Active Start: 01-31-2021 End: 04-25-2021 take 1 tablet by mouth twice daily buPROPion SR (WELLBUTRIN SR) 150 mg 12 hr tablet Take 1 tablet by mouth twice daily. With 300mg to = 450mg daily 90 tablet 1 01/31/2021 04/25/2021 Discontinued Start: 01-31-2021 End: 08-19-2022 take 1 tablet by mouth once daily buPROPion XL (WELLBUTRIN XL) 300 mg 24 hr tablet Indications: Adjustment reaction with anxiety and depression Take 1 tablet by mouth once daily along with 75mg tablets 90 tablet 3 08/19/2022 Active Start: 10-11-2017 End: 05-22-2025 Bupropion Hcl 100 MG tablet Discontinued 375 mg PO DAILY October 11, 2017 1:00am May 22, 2025 3:15pm Comment on above: Take 1 tablet by ladonna th once daily along with 75mg tablets Take 1 tablet by ladonna th once daily. Take 1 tablet by ladonna th once daily. TAKE ALONG WITH 150 MG TAB FOR A TOTAL OF 450 MG DAILY (11/19/2022) carboxymethylcellulose sodium 5 mg/ml ophthalmic solution (20 sources) Star t: 01-31 carboxymethylcellulose (REFRESH PLUS) 0.5 % Use 1 Drop in both eyes as needed. USE DIRECTED 1 Packet 0 02/19/2022 Active Comment on above: Use 1 Drop in both e yes as needed. USE DIRECTED fluconazole 150 mg oral tablet (1 source) Azole Antifungal Star t: 0 02-18 End: 02-18 take 1 tablet by mouth once fluconazole (DIFLUCAN) 150 mg tablet Take 1 tablet by mouth one time only for 1 dose. 1 tablet 0 08/04/2023 08/04/2023 Comment on above: Take 1 tablet by ladonna th one time only for 1 dose. glucagon (GLUCAGON EMERGENCY KIT, HUMAN,) 1 mg solr (17 sources) Star t: 01-30 End: 10-01 inject 1 mg by intramuscular injection once glucagon (GLUCAGON EMERGENCY KIT, HUMAN,) 1 mg solr Indications: Extravasation injury of IV catheter site with other complication, subsequent encounter Inject 1 mg intramuscularly one time only for 1 dose. 1 mg 1 02/10/2019 10/14/2022 Discontinued Start: 02-10-2019 inject 1 mg by intra muscular injection once glucagon (GLUCAGON EMERGENCY KIT, HUMAN,) 1 mg solr Indications: Extravasation injury of IV catheter site with other complication, subsequent encounter Inject 1 mg intramuscularly one time only for 1 dose. 1 mg 1 02/10/2019 Active Comment on above: Inject 1 mg intramus cularly one time only for 1 dose. Lactobacillus Combination No.4 (Probiotic) 3 billion cell capsule (3 sources) Start: End: take 3 capsules by mouth once daily Lactobacillus Combination No.4 (Probiotic) 3 billion cell capsule Discontinued 3000 NMA PO daily May 22, 2025 12:00am June 07, 2025 12:57pm administer with a meal Start: 05-22-2025 take 3 capsules by m outh once daily Lactobacillus Combination No.4 (Probiotic) 3 billion cell capsule Active 3000 NMA PO daily May 22, 2025 12:00am administer with a meal moxifloxacin 5 mg/ml ophthalmic solution (20 sources) Quinolone Antimicrobial Start: 02-19-2022 moxifl oxacin (VIGAMOX) 0.5 % ophthalmic solution Use 1 Drop in both eyes four times daily. 4 times daily as directed 0 02/19/2022 Active Comment on above: Use 1 Drop in both e yes four times daily. 4 times daily as directed prednisoLONE acetate 10 mg/ml ophthalmic suspension (20 sources) Corticosteroid Start: 02-19-2022 prednisoLONE a cetate (PRED FORTE, ECONOPRED PLUS) 1 % ophthalmic suspension Use 1 Drop in both eyes four times daily. Use as directed 0 02/19/2022 Active Comment on above: Use 1 Drop in both e yes four times daily. Use as directed tretinoin 0.5 mg/ml topical cream (8 sources) Retinoid Start: 09-02-2023 End: 02-14-2024 tretinoin (RETIN-A) 0.05 % cream Indications: Acne, unspecified acne type Apply to affected area daily at bedtime. 45 g 09/02/2023 02/14/2024 Discontinued Comment on above: Apply to affected ar ea daily at bedtime. Problems Active Problems Problem Classification Problem Date Documented Da te Episodic/Chronic Adjustment disorders (20 sources) Adjustment disorder with mixed anxiety and depressed mood; Translations: [Adjustment disorder with mixed anxiety and depressed mood] Onset: 1 01-31-2021 Chronic Complication of device; implant or graft (3 sources) Extravasation injury; Translations: [Other specified complication of vascular prosthetic devices, implants and grafts, initial encounter] 02-11-2019 Chronic Contraceptive and procreative management (11 sources) Patient encounter status; Translations: [Encounter for insertion of intrauterine contraceptive device] Episodic Diabetes mellitus with complications (3 sources) Hypoglycemic disorder; Translations: [Type 2 diabetes mellitus with hypoglycemia without coma] 02-11-2019 Chronic Diabetes mellitus without complication (20 sources) Type 1 diabetes mellitus without complication; Translations: [Type 1 diabetes mellitus without complications] Onset: 5 Resolved: 7 04-15-2020 Chronic Genitourinary symptoms and ill-defined conditions (1 source) Dysuria; Translations: [Dysuria] 06-07-2024 Episodic Immunizations and screening for infectious disease (2 sources) Raised antinuclear antibody; Translations: [Other specified abnormal immunological findings in serum] Episodic Inflammation; infection of eye (except that caused by tuberculosis or sexually transmitteddisease) (3 sources) Punctate keratitis of right eye; Translations: [Punctate keratitis, right eye] Onset: 5 05-09-2024 Chronic Malaise and fatigue (2 sources) Malaise and fatigue; Translations: [Other malaise] Episodic Noninfectious gastroenteritis (3 sources) Lymphocytic colitis; Translations: [Other and unspecified noninfectious gastroenteritis and colitis] Onset: 5 06-20-2025 Chronic Other gastrointestinal disorders (20 sources) Celiac disease; Translations: [Celiac disease] 10-07-2015 Chronic Other gastrointestinal disorders (1 source) H/O: gastrointestinal disease; Translations: [Personal history of other diseases of the digestive system] Episodic Other gastrointestinal disorders (9 sources) Diarrhea; Translations: [Diarrhea, unspecified] 02-14-2024 Episodic Other gastrointestinal disorders (1 source) Other specified diseases of intestine; Translations: [Other specified diseases of intestine] Onset: 5 Episodic Other hereditary and degenerative nervous system conditions (2 sources) Restless legs; Translations: [Restless legs syndrome] Chronic Other nervous system disorders (1 source) Numbness and tingling sensation of skin; Translations: [Anesthesia of skin] Episodic Other nutritional; endocrine; and metabolic disorders (1 source) History of diabetes mellitus type 1; Translations: [Personal history of other endocrine, nutritional and metabolic disease] Episodic Other screening for suspected conditions (not mental disorders or infectious disease) (1 source) Encounter for screening for malignant neoplasm of colon; Translations: [Encounter for screening for malignant neoplasm of colon] Onset: 5 Episodic Residual codes; unclassified (3 sources) History of surgical procedure on eye proper using laser; Translations: [Other specified postprocedural states] Episodic Unclassified (1 source) Lymphocytic colitis 06-20-2025 Past or Other Problems Problem Classification Problem Date Documented Da te Episodic/Chronic Abdominal pain (5 sources) Left lower quadrant pain; Translations: [Left lower quadrant pain] Onset: 05-15-2025 02-14-2024 Episodic Blindness and vision defects (20 sources) Disorder of refraction; Translations: [Unspecified disorder of refraction] Onset: 09-17-2016 Resolved: 03-20-2019 Episodic Diabetes mellitus without complication (20 sources) Insulin pump present; Translations: [Presence of insulin pump (external) (internal)] Onset: 09-04-2016 09-04-2016 Episodic Other bone disease and musculoskeletal deformities (20 sources) Somatic dysfunction of lumbar region; Translations: [Segmental and somatic dysfunction of lumbar region] Onset: 02-15-2018 Resolved: 03-20-2019 03-20-2019 Episodic Other bone disease and musculoskeletal deformities (20 sources) Somatic dysfunction of sacroiliac joint; Translations: [Segmental and somatic dysfunction of sacral region] Onset: 02-15-2018 Resolved: 03-20-2019 03-20-2019 Episodic Other gastrointestinal disorders (3 sources) Diarrhea, unspecified; Translations: [Diarrhea, unspecified] Onset: 05-15-2025 Episodic Residual codes; unclassified (1 source) Other specified postprocedural states; Translations: [History of laser refractive surgery] Onset: 05-10-2025 Episodic Unclassified (1 source) Patient encounter status 01-18-2025 Results Test Name Value Interpretation Reference Range Facility [facility] 09-12-2025 [facility] Telephone (FAMWS) KRISTOPHER WALSH ([id number]) 1990 F [facility] Date Time Provider Department 09/12/25 BERTRAND WALLACE [facility] During your visit today, we recorded the following information about you: Ashwini Vega RN 09/12/2025 8:44 AM Signed Juany with [facility] calls to let provider know that orders sent for Omni pod 4 are no longer available and are needing a new prescription for the Omni pod 5 th generation and Omni pod - pods. Pended what was recommended. Please review and advise, Ashwini Vega RN Allergies As of Date: 09/12/2025 Noted Allergy Reaction GLUTEN 11/22/2012 14 - Other: See Comments Comments: Celiac disease ADHESIVE 08/10/2017 2 - Rash 9 - Itching Date Reviewed: 05/15/2025 Reviewed by: Maxi Barton LPN - Fully Assessed Reason for Visit: Orders [681] Order(s):insulin pump subcutaneous cartridge (OMNIPOD 5 G6-G7 PODS, GEN 5,)Inject 1 cartridge subcutaneously every 72 hours.Disp: 30 eachRfl: 3 insulin pump subcutaneous cartridge and controller (OMNIPOD 5 G6-G7 INTRO KT,GEN5,) intro kit1 cartridge every 72 hours.Disp: 1 eachRfl: 3 Prescriptions as of 09/12/2025 - insulin pump PDM (OMNIPOD DASH PDM KIT, GEN 4,) controller Use as directed with OMNIPOD DASH pods. - Blood-Glucose Sensor (DEXCOM G7 SENSOR) faustion 1 each as directed for 10 days. - insulin pump subcutaneous cartridge (OMNIPOD 5 G6-G7 PODS, GEN 5,) Inject 1 cartridge subcutaneously every 72 hours. - insulin pump subcutaneous cartridge and controller (OMNIPOD 5 G6-G7 INTRO KT,GEN5,) intro kit 1 cartridge every 72 hours. - Blood-Glucose Meter (CONTOUR NEXT METER) Use to test blood glucose as directed. - Lancets Test blood sugar(s) 3 times times daily. Dx: Type 1 DM - Controlled E10.9 Insulin: Yes - blood sugar diagnostic (BLOOD GLUCOSE TEST) test strip Test blood sugar(s) 3 times daily. Dx: Type 1 DM - Controlled E10.9 Insulin: Yes - diphenoxylate-atropine (LOMOTIL) 2.5-0.025 mg per tablet Take 1 tablet by mouth before meals and at bedtime for 7 days. - blood sugar diagnostic (CONTOUR TEST STRIPS) test strip Use with blood glucose test three times a day. Insulin Dep? Yes - insulin lispro (HUMALOG U-100 INSULIN) 100 unit/mL injection USE DIRECTED VIA INSULIN PUMP-MAX IS 60 UNITS DAILY - glucagon (BAQSIMI) 3 mg/actuation nasal spray Use 1 [place] in the nose as needed for low blood sugar. May repeat after 15 minutes using a new device if there is no response. - insulin pump cart,automated,BT (OMNIPOD 5 G6 PODS, GEN 5,) crtg Inject 1 Each subcutaneously every 72 hours. - insulin pump cart,auto,BT,G6/7 (OMNIPOD 5 G6-G7 PODS, GEN 5,) crtg Inject 1 Each subcutaneously every 72 hours. - ondansetron orally disintegrating (ZOFRAN ODT) 4 mg disintegrating tablet Take 1 tablet by mouth every 6 hours as needed for nausea/vomiting. - insulin lispro (HUMALOG KWIKPEN INSULIN) 100 unit/mL Use as directed. Max dosage up to 50 units per day. - insulin glargine (LANTUS SOLOSTAR U-100 INSULIN) 100 unit/mL (3 mL) Inject 50 Units subcutaneously once daily. In case of pump failure. - Insulin [place], Disposable, (BD ULTRAFINE III MINI PEN) 31 gauge x 3/16 Uses 8 a day - levonorgestrel (MIRENA) 21 mcg/24 hours (8 yrs) 52 mg IUD 1 Each by INTRAUTERINE route as directed. - insulin pump cart,auto,BT-cntr (OMNIPOD 5 G6 INTRO KIT, GEN 5,) crtg Inject 1 Each subcutaneously once daily. - MULTIVITAMIN ORAL Take by mouth. - omega-3 fatty acids(FISH OIL 500 MG CAP) Take one(1) capsule daily. Problem List As Of Date 09/12/2025 Noted Resolved Celiac disease [K90.0] Insulin pump titration [Z46.81] 10/08/2015 04/26/[address] [Z96.41] 09/04/2016 Type 1 diabetes mellitus (HCC) [E10.9] 09/17/2016 Myopia [H52.10] 09/17/2016 03/20/2019 Somatic dysfunction of lumbar region [M99.03] 02/15/2018 03/20/2019 Somatic dysfunction of sacroiliac joint [M99.04]02/15/2018 03/20/2019 Adjustment reaction with anxiety and depression*01/31/2021 Lymphocytic colitis [K52.832] 06/20/2025 Prescriptions ordered this encounter Disp Refills Start End OMNIPOD 5 G6-G7 PODS (GEN 5) SUBCUTA* 30 e* 3 09/12/2025 Route: SQ Sig: Inject 1 cartridge subcutaneously every 72 hours. OMNIPOD 5 G6-G7 INTRO KIT(GEN 5) SUB* 1 ea* 3 09/12/2025 Route: Misc Si cartridge every 72 hours. Medications Discontinued During This Encounter Prescriptions - insulin pump subcutaneous cartridge (OMNIPOD 5 G6-G7 PODS, GEN 5,) (Discontinued) Inject 1 cartridge subcutaneously every 72 hours. Encounter Status:Closed by BERTRAND WALLACE on 09/12/25 [facility] 07-06-2025 [facility] Telephone (FAMPWS) KRISTOPHER WALSH ([id number]) 1990 F [facility] Date Time Provider Department 07/06/25 BERTRAND WALLACENAOMIE During your visit today, we recorded the following information about you: Silvana Dhaliwal LPN 07/06/2025 2:18 PM Signed [facility] states they need order for glucometer. Fax to Marielos Herrera APRN.CNP 07/06/2025 5:17 PM Signed Order written. Please fax. Gloria Godinez MA 07/06/2025 5:19 PM Signed Order faxed to below fax number Allergies As of Date: 07/06/2025 Noted Allergy Reaction GLUTEN 11/22/2012 14 - Other: See Comments Comments: Celiac disease ADHESIVE 08/10/2017 2 - Rash 9 - Itching Date Reviewed: 05/15/2025 Reviewed by: Maxi Barton LPN - Fully Assessed Reason for Visit: Orders [681] Primary Visit Diagnosis:Type 1 diabetes mellitus (HCC) [E10.9] Order(s):Blood-Glucose Meter (CONTOUR NEXT METER)Use to test blood glucose as directed.Disp: 1 eachRfl: 0 Prescriptions as of 07/06/2025 - Blood-Glucose Meter (CONTOUR NEXT METER) Use to test blood glucose as directed. - Lancets Test blood sugar(s) 3 times times daily. Dx: Type 1 DM - Controlled E10.9 Insulin: Yes - blood sugar diagnostic (BLOOD GLUCOSE TEST) test strip Test blood sugar(s) 3 times daily. Dx: Type 1 DM - Controlled E10.9 Insulin: Yes - diphenoxylate-atropine (LOMOTIL) 2.5-0.025 mg per tablet Take 1 tablet by mouth before meals and at bedtime for 7 days. - blood sugar diagnostic (CONTOUR TEST STRIPS) test strip Use with blood glucose test three times a day. Insulin Dep? Yes - insulin lispro (HUMALOG U-100 INSULIN) 100 unit/mL injection USE DIRECTED VIA INSULIN PUMP-MAX IS 60 UNITS DAILY - insulin pump cart,auto,BT,G6/7 (OMNIPOD 5 G6-G7 PODS, GEN 5,) crtg Inject 1 Each subcutaneously every 72 hours. - glucagon (BAQSIMI) 3 mg/actuation nasal spray Use 1 [place] in the nose as needed for low blood sugar. May repeat after 15 minutes using a new device if there is no response. - insulin pump cart,automated,BT (OMNIPOD 5 G6 PODS, GEN 5,) crtg Inject 1 Each subcutaneously every 72 hours. - insulin pump cart,auto,BT,G6/7 (OMNIPOD 5 G6-G7 PODS, GEN 5,) crtg Inject 1 Each subcutaneously every 72 hours. - ondansetron orally disintegrating (ZOFRAN ODT) 4 mg disintegrating tablet Take 1 tablet by mouth every 6 hours as needed for nausea/vomiting. - insulin lispro (HUMALOG KWIKPEN INSULIN) 100 unit/mL Use as directed. Max dosage up to 50 units per day. - insulin glargine (LANTUS SOLOSTAR U-100 INSULIN) 100 unit/mL (3 mL) Inject 50 Units subcutaneously once daily. In case of pump failure. - Insulin [place], Disposable, (BD ULTRAFINE III MINI PEN) 31 gauge x 3/16 Uses 8 a day - levonorgestrel (MIRENA) 21 mcg/24 hours (8 yrs) 52 mg IUD 1 Each by INTRAUTERINE route as directed. - insulin pump cart,auto,BT-cntr (OMNIPOD 5 G6 INTRO KIT, GEN 5,) crtg Inject 1 Each subcutaneously once daily. - MULTIVITAMIN ORAL Take by mouth. - omega-3 fatty acids(FISH OIL 500 MG CAP) Take one(1) capsule daily. Problem List As Of Date 07/06/2025 Noted Resolved Celiac disease [K90.0] Insulin pump titration [Z46.81] 10/08/2015 04/26/[address] [Z96.41] 09/04/2016 Type 1 diabetes mellitus (HCC) [E10.9] 09/17/2016 Myopia [H52.10] 09/17/2016 03/20/2019 Somatic dysfunction of lumbar region [M99.03] 02/15/2018 03/20/2019 Somatic dysfunction of sacroiliac joint [M99.04]02/15/2018 03/20/2019 Adjustment reaction with anxiety and depression*01/31/2021 Lymphocytic colitis [K52.832] 06/20/2025 Prescriptions ordered this encounter Disp Refills Start End BLOOD-GLUCOSE METER 1 ea* 0 07/06/2025 Class: Print RX Sig: Use to test blood glucose as directed. Encounter Status:Closed by GLORIA GODINEZ on 07/06/25 [facility] Colonoscopy Reporton 025 Colonoscopy Report [facility] Medical Records Department [address] [place] [address] Colonoscopy Report MR#: [id number] Acct: [id number] Name: KRISTOPHER WALSH Rep #: [id number] : 1990 34 From: Vinay Ochoa MD PCP: Dr. Bertrand Wallace MD Status:REG [facility] Patient Name: Kristopher Walsh Procedure Date: 06/12/2025 9:10 AM Date of : 1990 Age: 34 Procedure: Colonoscopy Indications: Clinically significant diarrhea of unexplained origin Providers: Vinay Ochoa MD Referring MD: Bertrand Wallace Medicines: Monitored Anesthesia Care Patient Profile: Refer to note in patient chart for documentation of history and physical. Patient has symptoms of chronic diarrhea. Last Colonoscopy: none. The patient's first colonoscopy is today. Complications: No immediate complications. Estimated blood loss: None. Procedure: Pre-Anesthesia Assessment: - Prior to the procedure, a History and Physical was performed, and patient medications and allergies were reviewed. The patient's tolerance of previous anesthesia was also reviewed. The risks and benefits of the procedure and the sedation options and risks were discussed with the patient. All questions were answered, and informed consent was obtained. Prior Anticoagulants: The patient has taken no anticoagulant or antiplatelet agents. ASA Grade Assessment: I - A normal, healthy patient. After reviewing the risks and benefits, the patient was deemed in satisfactory condition to undergo the procedure. After I obtained informed consent, the scope was passed under direct vision. Throughout the procedure, the patient's blood pressure, pulse, and oxygen saturations were monitored continuously. The colonoscope was introduced through the anus and advanced to the cecum, identified by appendiceal orifice and ileocecal valve. The ileocecal valve, appendiceal orifice, and rectum were photographed. The entire colon was well visualized. The colonoscopy was performed without difficulty. The patient tolerated the procedure well. The quality of the bowel preparation was adequate. Moderate Sedation: See the other procedure note for documentation of moderate sedation with intraservice time. Scope In: 9:21:46 AM Scope Withdrawal Time 0 hours 11 minutes 24 seconds Scope Out: 9:47:56 AM Total Procedure Duration Time 0 hours 26 minutes 10 seconds Findings: The perianal and digital rectal examinations were normal. A segmental area of mildly erythematous mucosa was found in the ascending colon. Multiple biopsies were obtained with cold forceps for diagnostic purposes randomly in the entire colon. Verification of patient identification for the specimen was done by the nurse using the patient's name, date and medical record number. Estimated blood loss was minimal. The exam was otherwise without abnormality on direct and retroflexion views. Impression: - Erythematous mucosa in the ascending colon. - The examination was otherwise normal on direct and retroflexion views. - Multiple biopsies were obtained in the entire colon. Recommendation: - Discharge patient to home (ambulatory). - High fiber diet. - Await pathology results. - Repeat colonoscopy for surveillance based on pathology results. - Return to my office PRN. - Continue present medications. Procedure Code(s): --- Professional --- 88798, Colonoscopy, flexible; with biopsy, single or multiple Diagnosis Code(s): --- Professional --- R19.7, Diarrhea, unspecified K63.89, Other specified diseases of intestine CPT copyright 2021 [employer]. All rights reserved. The codes documented in this report are preliminary and upon pre coder review may be revised to meet current compliance requirements. Vinay Ochoa MD 06/12/2025 9:54:24 AM This report has been signed electronically. Number of Addenda: 0 Note Initiated On: 06/12/2025 9:10 AM 06/12/25 0954 Date Vinay Ochoa MD Cosigner Signature: Date (if indicated) CC: Dr. Vinay Ochoa MD; Dr. Bertrand Wallace MD Date Dictated: 06/12/2510 Date Transcribed: Desktop Publishing Specialist: SEKOU Signed [facility] MR/OP.PROVPricila 06-12-2025 MR/OP.[facility] Medical Records Department [address] [place] [address] Provation Physician Letter MR#: [id number] Acct: [id number] Name: KRITSOPHER WALSH Rep #: [id number] : 1990 34 From: Vinay Ochoa MD PCP: Dr. Bertrand Wallace MD Status:REG [facility] 06/12/2025 Bertrand Wallace Re : Colonoscopy procedure for Kristopher Walsh [place] This procedure was performed on Thursday, June 12, 2025. My impressions and recommendations are as follows: Impressions : - Erythematous mucosa in the ascending colon. - The examination was otherwise normal on direct and retroflexion views. - Multiple biopsies were obtained in the entire colon. Recommendations : - Discharge patient to home (ambulatory). - High fiber diet. - Await pathology results. - Repeat colonoscopy for surveillance based on pathology results. - Return to my office PRN. - Continue present medications. My findings are described in the full procedure note, which is enclosed. If I can be of further assistance, please feel free to contact me at . Sincerely, Vinay Ochoa MD 06/12/2025 9:54:24 AM This report has been signed electronically. 06/12/25953 Date Vinay Ochoa MD Cosigner Signature: Date (if indicated) CC: Dr. Vinay Ochoa MD; Dr. Bertrand Wallace MD Date Dictated: 06/12/25909 Date Transcribed: Desktop Publishing Specialist: SEKOU Signed [facility] MR/POSTOP.Quin 06-12-2025 MR/POSTOP.[facility] Medical Records Department [address] [place] [address] Anesthesia Postop Eval I 06/12/2557 MR#: [id number] Acct: [id number] Name: KRISTOPHER WALSHZABETH Rep #: [id number] : 1990 34 From: Yrn Sheets PCP: Dr. Bertrand Wallace MD Status:REG SDC Y Race: C Location: [place] [address] Anesthesia: Postop Eval I Current Vital Signs Temperature: 97.8 F Pulse Rate: 78 Blood Pressure: 104/66 Respiratory Rate: 16 Pulse Ox: 99 Oxygen Delivery Method: Room Air Assessment Airway patent: Yes Spontaneous unlabored respirations: Yes Mental status: Awake nausea: No Vomiting: No Anesthesia Complication: No Fluid Hydration Crystalloid volume administer (ml): 600 Total IV fluid infused: 600 Progress Note Anesthesia document: Postop Eval 1 completed: Yes 06/12/25 0958 Date Yrn Sheets Cosignerika Signature: Date CC: Signed Normal [facility] Surgery Specimen Level Edy 06-12-2025 Surgery Specimen Level IV ---- Patient Age/Sex Location Account Attending Physician ---- KRISTOPHER WALSH 34/F EN [id number] Dr. Vinay Ochoa MD ---- Specimen: [id number] Received: 06/12/25 Status: SEBASTIAN Doherty Num: [id number] Spec Type: COLON BX Subm Dr: Dr. Vinay Ochoa MD HEADER OPERATION: Colonoscopy, biopsy PRE-OP DIAGNOSIS: Encounter for screening for malignant neoplasm of colon, diarrhea TISSUE SUBMITTED: A- Random colonic biopsy ---- MICROSCOPIC DIAGNOSIS A. Colon, random, biopsy: - Focal active colitis with patchy intraepithelial lymphocytosis - see note. - Trichrome stain is negative for significant thickening of the subepithelial collagen table. Note: The findings are suggestive of lymphocytic (microscopic) colitis. The differential diagnosis includes infection and medication injury reaction. Recommend correlation with clinical and endoscopic findings. MICROSCOPIC DESCRIPTION Slides are reviewed. All matched controls reacted appropriately. These tests were developed and their performance characteristics determined by [facility]. They may not have been cleared or approved by the U.S. Food and Drug Administration. The FDA has determined that such clearance or approval is not necessary.??? The above immunohistochemical??? markers are reviewed by the Pathologist. GROSS DESCRIPTION A. Received in fixative is one container labeled with the patient's name and designated Random colon biopsy. The specimen consists of multiple irregular fragments of light bella soft tissue that in aggregate measure 1 x 0.6 x 0.1 cm. The specimen is totally submitted in one cassette. [place] 06/12/2025 CPT:27875,30921 ---- Patient Age/Sex Location Account Attending Physician ---- KRISTOPHER WALSH EN [id number] Dr. Vinay Ochoa MD ---- Signed (signature on file) Dr. Taisha Richey MD 06/18/25 1018 ---- Normal [facility] Comment on above: Performed By: #### P SHERIDAN #### [facility] [address] [place], [address] [place] 05-22-2025 [place] Telephone (GISSEL) KRISTOPHER WALSH [place] ([id number]) 1990 F [facility] Date Time Provider Department 05/22/25 MAYA ROTHMAN During your visit today, we recorded the following information about you: Maxi Barton LPN 05/22/2025 6:50 AM Signed Received pt's lab and CT results done at [facility] ordered by Maya. Results on Maya's desk for review. IGNACIO Prasad Rayanne, PA-C 05/22/2025 7:13 AM Signed Let patient know that she has evidence of R sided ovarian cyst rupture but otherwise her CT scan is normal. Wouldn't be the cause of her diarrhea. SHAHIDA Kinsey Krista, LPN 05/22/2025 8:20 AM Signed Pt notified of results and provider message. Pt is requesting results be sent (released) in [facility]. IGNACIO Eisenberg Sherill A, LPN 05/22/2025 9:06 AM Signed Spoke with pt and advised there is no way to get outside results into her [facility] but the surgeon should have access to all results and imaging. Pt verbalizes understanding and will try to sign up for [facility] pt's portal. Maxi Barton LPN Allergies As of Date: 05/22/2025 Noted Allergy Reaction GLUTEN 11/22/2012 14 - Other: See Comments Comments: Celiac disease ADHESIVE 08/10/2017 2 - Rash 9 - Itching Date Reviewed: 05/15/2025 Reviewed by: Maxi Barton LPN - Fully Assessed Reason for Visit: Results [95] Prescriptions as of 05/22/2025 - diphenoxylate-atropine (LOMOTIL) 2.5-0.025 mg per tablet Take 1 tablet by mouth before meals and at bedtime for 7 days. - blood sugar diagnostic (CONTOUR TEST STRIPS) test strip Use with blood glucose test three times a day. Insulin Dep? Yes - Lancets Test blood sugar(s) 3 times times daily. Dx: Type 1 DM - Controlled E10.9 Insulin: Yes - insulin lispro (HUMALOG U-100 INSULIN) 100 unit/mL injection USE DIRECTED VIA INSULIN PUMP-MAX IS 60 UNITS DAILY - insulin pump cart,auto,BT,G6/7 (OMNIPOD 5 G6-G7 PODS, GEN 5,) crtg Inject 1 Each subcutaneously every 72 hours. - glucagon (BAQSIMI) 3 mg/actuation nasal spray Use 1 [place] in the nose as needed for low blood sugar. May repeat after 15 minutes using a new device if there is no response. - insulin pump cart,automated,BT (OMNIPOD 5 G6 PODS, GEN 5,) crtg Inject 1 Each subcutaneously every 72 hours. - insulin pump cart,auto,BT,G6/7 (OMNIPOD 5 G6-G7 PODS, GEN 5,) crtg Inject 1 Each subcutaneously every 72 hours. - ondansetron orally disintegrating (ZOFRAN ODT) 4 mg disintegrating tablet Take 1 tablet by mouth every 6 hours as needed for nausea/vomiting. - insulin lispro (HUMALOG KWIKPEN INSULIN) 100 unit/mL Use as directed. Max dosage up to 50 units per day. - insulin glargine (LANTUS SOLOSTAR U-100 INSULIN) 100 unit/mL (3 mL) Inject 50 Units subcutaneously once daily. In case of pump failure. - Insulin [place], Disposable, (BD ULTRAFINE III MINI PEN) 31 gauge x 3/16 Uses 8 a day - levonorgestrel (MIRENA) 21 mcg/24 hours (8 yrs) 52 mg IUD 1 Each by INTRAUTERINE route as directed. - insulin pump cart,auto,BT-cntr (OMNIPOD 5 G6 INTRO KIT, GEN 5,) crtg Inject 1 Each subcutaneously once daily. - MULTIVITAMIN ORAL Take by mouth. - omega-3 fatty acids(FISH OIL 500 MG CAP) Take one(1) capsule daily. Problem List As Of Date 05/22/2025 Noted Resolved Celiac disease [K90.0] Insulin pump titration [Z46.81] 10/08/2015 04/26/[address] [Z96.41] 09/04/2016 Type 1 diabetes mellitus (HCC) [E10.9] 09/17/2016 Myopia [H52.10] 09/17/2016 03/20/2019 Somatic dysfunction of lumbar region [M99.03] 02/15/2018 03/20/2019 Somatic dysfunction of sacroiliac joint [M99.04]02/15/2018 03/20/2019 Adjustment reaction with anxiety and depression*01/31/2021 Encounter Status:Closed by MAXI BARTON on 05/22/25 [facility] Surgery Visit Reporton 05-22 Surgery Visit Report [facility] [address] [place] [address] OFFICE VISIT Date of Service: 05/22/25 MR#: [id number] Acct: [id number] Name: KRISTOPHER WALSH Rep #: [id number] : 1990 Provider: Dr. Vinay reaves MD Age/Sex: 34/F Location: [facility] Status: Signed Intake Vital Signs 02/10/19 00:45 05/22/25 15:13 Height 5 ft 5 in 5 ft 5 in Weight: 130 lb BMI 21.6 BP 115/73 Blood Pressure Location Rt brachial Position Sitting Respiration 17 Pulse 66 Pulse Source Monitor Temp 97.8 F Temp Source Temporal Pulse Oximetry (%) 99 Oxygen Delivery Method room air Intake Visit Reasons: CHANGE IN BOWELS Chief Complaint: change in bowels/diarrhea Is patient in pain?: No Allergies gluten Allergy (Verified 05/22/25 15:14) Other adhesive tape Adverse Reaction (Verified 05/22/25 15:14) Rash Medications ???Medication ???Instructions ???Recorded ???Confirmed ???Type insulin lispro 100 unit/mL units SQ DAILY 02/10/19 05/22/25 H istory subcutaneous solution (Humalog U-100 Insulin) lactobacillus combination no.4 3 3,000 mmu cells PO QDAY 05/22/25 0 05/22/25 History billion cell capsule (Probiotic) PFSH Medical History Celiac disease Family History Mother Osteoporosis Skin cancer Thyroid disorder Father Cancer throat Social History Smoking Status: Never smoker HPI HPI HPI: The patient is a 34-year-old female who is being seen today to discuss colonoscopy to further evaluate ongoing issues with diarrhea. She has undergone numerous stool studies without abnormality. She also underwent a recent CT scan that was normal as well. ROS General General: No weight change, appetite, fatigue, colon cancer, breast cancer or weakness HEENT HEENT: Yes eye surgery; No difficulty swallowing, eye injury, swollen glands or hoarseness Endo Endocrine: Yes diabetes mellitus; No thyroid disease, thyroid cancer, Hair loss, heat intolerance or cold intolerance Skin Skin: No rash or changing moles Musc Musculoskeletal: No back problems, arthritis, rheumatoid arthritis, gout or joint pain Cardio Cardiovascular: No murmur, pacemaker, heart disease, atrial fibrillation, high blood pressure, heart attack, heart stent, palpitations, shortness of breath with exertion or chest pain Psych Psychiatric: No depression, anxiety or hearing voices Resp Respiratory: No shortness of breath, No sleep apnea, No cough, No COPD, No asthma, No emphysema and No wheezing Gastro Gastrointestinal: Yes abdominal pain, Yes nausea or vomiting, Yes diarrhea, No constipation, No blood in stool, No acid reflux, No hemorrhoids, No ulcers, No gallbladder problem and No black,tarry stools Gee Hematologic: No blood thinners, No blood disorders, No bleeding, No anemia and No blood clots Neuro Neurologic: No system reviewed and no additional complaints, except as documented, No as per HPI, No abnormal gait, No abnormal hearing, No abnormal movements, No abnormal speech, No behavioral changes, No burning sensations, No confusion, No convulsions, No disequilibrium, No dizziness, No localized weakness, No frequent falls, No headache(s), No lack of coordination, No loss of vision, No memory loss, No numbness, No other visual disturbances, No radicular pain, No restless legs, No sensory deficit, No syncope, No tingling, No tremor(s), No weakness and No other Exam Const General: cooperative, healthy appearing, comfortable and no acute distress HENMT Head: normal to inspection Eyes General: appearance normal, both eyes and all related structures Neck Neck: normal visual inspection Resp Effort Inspection: normal respiratory effort Assessment and Plan Assessment and Plan (1) Encounter for screening for malignant neoplasm of colon: Status: Acute Plan: The patient is a 34-year-old female with a history of celiac disease who also presents with persistent issues with diarrhea. All of her stool studies have been unremarkable. She has been referred to me to discuss colonoscopy as the next step of workup. We discussed the details of the planned procedure including the risks benefits and alternatives. She wishes to proceed. This will be scheduled in a timely manner. Coding Level of Care Code Off vis,new,level 4 Diagnoses Encounter for screening for malignant neoplasm of colon Z12.11 05/23/25 0918 Date Vinay Ochoa MD Cosign Signature: Date (if applicable) CC: Dr. Bertrand Wallace MD Normal [facility] Abdomen/Pelvis WITH Contrast on 05-21-2025 Abdomen/Pelvis WITH Contrast [facility] [address] [place] [address] [id number] Abdomen/Pelvis WITH Contrast MR#: [id number] Acct: [id number] Name: KRISTOPHER WALSH Rep #: [id number] : 1990 F 34 From: Pete Wilson MD PCP: Dr. Bertrand Wallace MD Status: REG CLI Study: Abdomen/Pelvis WITH Contrast Date of Exam: Exam# [id number] Ordering Dr: Maya Rothman PROCEDURE: ABDOMEN/PELVIS WITH CONTRAST 05/21/2025 REASON FOR EXAM: LLQ PAIN TECHNIQUE: ABDOMEN/PELVIS WITH CONTRAST Coronal and Sagittal reconstruction series were provided. CONTRAST: Isovue 300 VOLUME: 99 mL One or more dose reduction techniques were used (e.g., Automated exposure control, adjustment of the mA and/or kV according to patient size, use of iterative reconstruction technique. RADIATION DOSE SUMMARY: CTDlvol: 21 mGy DLP: 380 mGycm COMPARISON: No FINDINGS: Clear lung bases. Normal heart size. Unremarkable liver, gallbladder, pancreas, spleen, adrenal glands, kidneys. No hydronephrosis or ureteral stone. Normal bladder. Normal uterus and left ovary. Status post tubal ligation. Involuting right ovarian cyst. Small pelvic fluid. No retroperitoneal or pelvic adenopathy. No free air. Nondistended bowel. Normal appendix. No acute large bowel findings. No acute abdominal wall findings. CT/Abdomen/Pelvis WITH Contrast IMPRESSION: Recent right ovarian cyst rupture with small pelvic fluid, this can be a cause of pain. Reading Location: [place] [address] CC: Dr. Bertrand Wallace MD; KAYLEEN Kinsey [employer] Specialist: Signed Normal [facility] CREATININE FINGERSTICKon CREATININE WB < 1.0 Normal 0.55-1.[address] [facility] Comment on above: Performed By: #### L 9100.0200 #### [facility] [address] [facility] [place], [place], [address] EGFR WB > 60.0000 Normal >[address] [facility] Comment on above: Performed By: #### L 9100.0200 #### [facility] [address] [facility] [place], [address] EGFROrdered By: Maya marti on 05-21-2025 GFR/1.73 sq M.predicted among non-blacks MDRD (S/P/Bld) [Vol rate/Area] mL/min/{1.73_m2} >[address] [facility] Basic metabolic 2000 panelon 05-15-2025 Anion gap [Moles/Vol] 10 mmol/L Normal 8-15 [facility] Comment on above: Order Comment: Speci men Type: BLOOD SPECIMEN Ordering Facility: [facility] Address: [address] [place] [address] Performed By: #### 2 4321-2 #### [facility] CLIA [id number] [address] [place] [address] [place], [place] [address] [place] Calcium [Mass/Vol] 9.9 mg/dL Normal 8.5-10.2 [facility] Comment on above: Order Comment: Speci men Type: BLOOD SPECIMEN Ordering Facility: [facility] Address: [address] [place] [address] Performed By: #### 2 4321-2 #### [facility] CLIA [id number] [address] [place] [address] [place] Chloride [Moles/Vol] 104 mmol/L Normal 98-107 [facility] Comment on above: Order Comment: Speci men Type: BLOOD SPECIMEN Ordering Facility: [facility] Address: [address] [place] [address] Performed By: #### 2 4321-2 #### [facility] CLIA [id number] [address] [place] [address] [place] CO2 [Moles/Vol] 24 mmol/L Normal 22-30 [facility] Comment on above: Order Comment: Speci men Type: BLOOD SPECIMEN Ordering Facility: [facility] Address: [address] [place] [address] Performed By: #### 2 4321-2 #### [facility] CLIA [id number] [address] [place] [address] [place] Creatinine [Mass/Vol] 0.84 mg/dL Normal 0.58-0.96 [facility] Comment on above: Order Comment: Speci men Type: BLOOD SPECIMEN Ordering Facility: [facility] Address: [address] [place] [address] Performed By: #### 2 4321-2 #### [facility] CLIA [id number] [address] [place] [address] [place] eGFRcr SerPlBld CKD-EPI 2021 92 mL/min/1.73m??? Normal >=60 [facility] Comment on above: Order Comment: Speci men Type: BLOOD SPECIMEN Ordering Facility: [facility] Address: [address] [place] [address] Result Comment: Janette mated Glomerular Filtration Rate (eGFR) is calculated using the 2020 CKD-EPI creatinine equation. This equation utilizes serum creatinine, sex, and age as parameters. The creatinine assay has traceable calibration to isotope dilution-mass spectrometry. Refer to KDIGO guidelines for clinical interpretation. In patients with unstable renal function, e.g. those with acute kidney injury, the eGFR may not accurately reflect actual GFR. Performed By: #### 2 4321-2 #### [facility] CLIA [id number] [address] [place] [address] [place] Glucose [Mass/Vol] 133 mg/dL High 74-99 [facility] Comment on above: Order Comment: Specnile miranda Type: BLOOD SPECIMEN Ordering Facility: [facility] Address: [address] [place] [address] Result Comment: The [place] Diabetes Association (ADA) provides guidance for cutoff values for fasting glucose and random glucose. The ADA defines fasting as no caloric intake for at least 8 hours. Fasting plasma glucose results between 100 to 125 mg/dL indicate increased risk for diabetes (prediabetes). Fasting plasma glucose results greater than or equal to 126 mg/dL meet the criteria for diagnosis of diabetes. In the absence of unequivocal hyperglycemia, results should be confirmed by repeat testing. In a patient with classic symptoms of hyperglycemia or hyperglycemic crisis, random plasma glucose results greater than or equal to 200 mg/dL meet the criteria for diagnosis of diabetes. Reference: Standards of Medical Care in Diabetes 2016, [place] [employer] Association. Diabetes Care. 2016.39(Suppl 1). Performed By: #### 2 4321-2 #### [facility] CLIA [id number] [address] [place] [address] [place] Potassium [Moles/Vol] 4.5 mmol/L Normal 3.7-5.1 [facility] Comment on above: Order Comment: Andrzej miranda Type: BLOOD SPECIMEN Ordering Facility: [facility] Address: [address] [place] [address] Performed By: #### 2 4321-2 #### [facility] CLIA [id number] [address] [place] [address] [place] Sodium [Moles/Vol] 138 mmol/L Normal 136-144 [facility] Comment on above: Order Comment: Andrzej miranda Type: BLOOD SPECIMEN Ordering Facility: [facility] Address: [address] [place] [address] Performed By: #### 2 4321-2 #### [facility] CLIA [id number] [address] [place] [address] [place] Urea nitrogen [Mass/Vol] 12 mg/dL Normal 7-21 [facility] Comment on above: Order Comment: Andrzej miranda Type: BLOOD SPECIMEN Ordering Facility: [facility] Address: [address] [place] [address] Performed By: #### 2 4321-2 #### [facility] CLIA [id number] [address] [place] [address] [place] C diff Tox gens Stl Ql LINDA+p robeon 05-15-2025 C. difficile toxin genes LINDA+probe Ql (Stl) Negative Normal Negative for C. difficile toxin by PCR [facility] Comment on above: Order Comment: Andrzej miranda Type: STOOL SPECIMEN Ordering Facility: [facility] Address: [address] [place] [address] Performed By: #### 5 4067-4 #### [facility] IA [id number] [address] [place] [address] [place] CNOVon 05-15-2025 CNOV Office Visit (FAMPWS ) KRISTOPHER WALSH ([id number]) 1990 F [facility] Date Time Provider Department 05/15/25 7:40 AM MAYA ROTHMAN During your visit today, we recorded the following information about you: Temperature Pulse Respiration Blood pressure 98.2 degrees 60/minute 16/minute 110/72 Weight Last Period 58.5 kg 05/07/25 Maya Rothman PA-C 05/15/2025 8:43 AM Signed Chief Complaint Patient presents with: Diarrhea HPI Kristopher Walsh is a 34 year old female who presents here today for Above Complaints.. Diarrhea: - Recurrent episodes of watery diarrhea, x1 month. - Similar episode last year, resolved without intervention. - Denies hematochezia; notes occasional mucoid stools. - Associated with intermittent abdominal pain, described as constricting and squeezing in the mid-abdomen. - Pain is sometimes palpable externally, described as bubbly and like when your baby's kicking. - Denies reflux. - Denies recent travel, dietary changes, or new medications. - Adheres to a strict gluten-free diet; avoids eating out. - Symptoms are random, occurring 5-12 hours postprandial, sometimes waking her at night. - Denies nausea; previously experienced nausea with Imodium use. - Symptoms interfere with daily life; avoids certain foods and alcohol. - No family history of ulcerative colitis or Crohn's disease; grandfather had IBS, father had polyps with normal colonoscopy. - Last year's stool studies during similar symptoms were negative. - Works from home in [employer]. Past medical history, appointments, medications, allergies reviewed. Previous Medical History PAST MEDICAL HISTORY Diagnosis Date CAFE' AU LAIT/////DYSCHROMIA UNSPECIFIED 08/12/2007 Celiac disease (HCC) Diabetes mellitus without mention of complication Diabetes mellitus Duodenitis without mention of hemorrhage 04/13/2012 Dysmenorrhea resolved Excessive or frequent menstruation Heavy periods resolved Irregular menstrual cycle Irregular periods resolved Myopia 06/07/2015 Myopia 09/17/2016 Other specified anemias Somatic dysfunction of lumbar region 02/15/2018 Somatic dysfunction of sacroiliac joint 02/15/2018 Previous Surgical History PAST SURGICAL HISTORY Procedure Laterality Date ESSURE 12/30/12 LASIK Bilateral 02/19/[address] ROCK Family History FAMILY HISTORY Problem Relation Age of Onset Cancer Mother Skin, squamous cell Cancer Father throat-squamous cell Heart Maternal Grandfather coronary artery disease Cataract Maternal Grandfather Heart Paternal Grandfather AL Patient Allergies ALLERGIES Allergen Reactions Gluten Other: See Comments Celiac disease Adhesive Rash, Itching Current Medications Current Outpatient Medications on File Prior to Visit Medication Sig blood sugar diagnostic (CONTOUR TEST STRIPS) test strip Use with blood glucose test three times a day. Insulin Dep? Yes Lancets Test blood sugar(s) 3 times times daily. Dx: Type 1 DM - Controlled E10.9 Insulin: Yes insulin lispro (HUMALOG U-100 INSULIN) 100 unit/mL injection USE DIRECTED VIA INSULIN PUMP-MAX IS 60 UNITS DAILY insulin pump cart,auto,BT,G6/7 (OMNIPOD 5 G6-G7 PODS, GEN 5,) crtg Inject 1 Each subcutaneously every 72 hours. glucagon (BAQSIMI) 3 mg/actuation nasal spray Use 1 [place] in the nose as needed for low blood sugar. May repeat after 15 minutes using a new device if there is no response. insulin pump cart,automated,BT (OMNIPOD 5 G6 PODS, GEN 5,) crtg Inject 1 Each subcutaneously every 72 hours. insulin pump cart,auto,BT,G6/7 (OMNIPOD 5 G6-G7 PODS, GEN 5,) crtg Inject 1 Each subcutaneously every 72 hours. ondansetron orally disintegrating (ZOFRAN ODT) 4 mg disintegrating tablet Take 1 tablet by mouth every 6 hours as needed for nausea/vomiting. insulin lispro (HUMALOG KWIKPEN INSULIN) 100 unit/mL Use as directed. Max dosage up to 50 units per day. Insulin [place], Disposable, (BD ULTRAFINE III MINI PEN) 31 gauge x 3/16 Uses 8 a day insulin pump cart,auto,BT-cntr (OMNIPOD 5 G6 INTRO KIT, GEN 5,) crtg Inject 1 Each subcutaneously once daily. MULTIVITAMIN ORAL Take by mouth. insulin glargine (LANTUS SOLOSTAR U-100 INSULIN) 100 unit/mL (3 mL) Inject 50 Units subcutaneously once daily. In case of pump failure. levonorgestrel (MIRENA) 21 mcg/24 hours (8 yrs) 52 mg IUD 1 Each by INTRAUTERINE route as directed. (Patient not taking: Reported on 05/15/2025) omega-3 fatty acids(FISH OIL 500 MG CAP) Take one(1) capsule daily. (Patient not taking: Reported on 05/15/2025) No current facility-administered medications on file prior to visit. Social History Social History Tobacco Use Smoking status: Never Smokeless tobacco: Never Vaping Use Vaping status: Never Used Substance Use Topics Alcohol use: Yes Comment: occasional Drug use: No Re (more content not included)... Normal [facility] G lamblia+Cryptosp Ag Stl Ql IAon 05-15-2025 G. lamblia+Cryptosporidi um sp Ag IA Ql (Stl) CRYPTOSPORIDIUM ANTIGEN BY EIA: Negative for Cryptosporidium by EIA. GIARDIA ANTIGEN BY EIA: Negative for Giardia lamblia by EIA. Normal [facility] Comment on above: Performed By: #### 4 8059-0, 30017-9 #### [facility] CLIA [id number] [address] [place] [address] [place] Gastrointestinal pathogens i dentified LINDA+probe Nom (Stl)on 05-15-2025 Campylobacter sp DNA LINDA+probe Nom (Unsp spec) Not detected Normal Not Detected [facility] Comment on above: Order Comment: Speci men Type: STOOL SPECIMEN Ordering Facility: [facility] Address: [address] [place] [address] Performed By: #### 4 8059-0, 30511-4 #### [facility] CLIA [id number] [address] [place] [address] [place] Salmonella sp DNA LINDA+probe Ql (Unsp spec) Not detected Normal Not Detected [facility] Comment on above: Order Comment: Speci men Type: STOOL SPECIMEN Ordering Facility: [facility] Address: [address] [place] [address] Performed By: #### 4 8059-0, 25033-3 #### [facility] CLIA [id number] [address] [place] [address] [place] Shiga toxin stx gene LINDA+probe Nom (Unsp spec) Not detected Normal Not Detected [facility] Comment on above: Order Comment: Speci men Type: STOOL SPECIMEN Ordering Facility: [facility] Address: [address] [place] [address] Performed By: #### 4 8059-0, 27709-7 #### [facility] CLIA [id number] [address] [place] [address] Shigella sp DNA LINDA+probe Ql (Unsp spec) Not detected Normal Not Detected [facility] Comment on above: Order Comment: Speci men Type: STOOL SPECIMEN Ordering Facility: [facility] Address: [address] [place] [address] Performed By: #### 4 8059-0, 03703-6 #### [facility] CLIA [id number] [address] [place] [address] [place] CNPNon 04-11-2025 [facility] KRISTOPHER WALSH ([id number]) 1990 F [facility] Date Time Provider Department 04/11/25 BERTRAND WALLACE [facility] During your visit today, we recorded the following information about you: Silvana Dhaliwal LPN 04/11/2025 3:04 PM Signed Sent in [employer] message from patient: Good afternoon, I started with a new insurance 04/01/25 and I am in need of a Prior Auth on the Dexcom G7 CGM samia. My new rx coverage is [employer] BIN: [id number] RXGroup: [id number] Id: [id number] Incase this plan covers it under medical, my medical coverage is: [facility] [employer] [facility]# [id number] Id: [id number] Gi Davis LPN 04/11/2025 4:07 PM Signed Unable to complete this electronically and on covermymeds.response on covermymeds says to fax PA and notes to [employer] at [phone]. Asking for review ASAP. Davis GiIGNACIO 04/12/2025 8:35 AM Signed Fax back from [facility] [facility] says need to complete PA on promtpa. This was done with their response unable to locate pt. To call them at [phone]. This was not done as this am rec;d a fax PA from [employer] [facility] to complete but the rec'd approval from [employer] [facility] this was approved from 04/11/25 to 04/11/26.. see scanned documents. Pt notified via my chart. Allergies As of Date: 04/11/2025 Noted Allergy Reaction GLUTEN 11/22/2012 14 - Other: See Comments Comments: Celiac disease ADHESIVE 08/10/2017 2 - Rash 9 - Itching Date Reviewed: 07/18/2024 Reviewed by: Marielos Herrera APRN.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 CLERK - Fully Assessed Reason for Visit: Insurance Authorization [[id number]] Prescriptions as of 04/12/2025 - Blood-Glucose Meter (CONTOUR METER) monitoring kit 1 each as needed for up to 1 day. - blood sugar diagnostic (CONTOUR TEST STRIPS) test strip Use with blood glucose test three times a day. Insulin Dep? Yes - Lancets Test blood sugar(s) 3 times times daily. Dx: Type 1 DM - Controlled E10.9 Insulin: Yes - insulin lispro (HUMALOG U-100 INSULIN) 100 unit/mL injection USE DIRECTED VIA INSULIN PUMP-MAX IS 60 UNITS DAILY - insulin pump cart,auto,BT,G6/7 (OMNIPOD 5 G6-G7 PODS, GEN 5,) crtg Inject 1 Each subcutaneously every 72 hours. - glucagon (BAQSIMI) 3 mg/actuation nasal spray Use 1 [place] in the nose as needed for low blood sugar. May repeat after 15 minutes using a new device if there is no response. - insulin pump cart,automated,BT (OMNIPOD 5 G6 PODS, GEN 5,) crtg Inject 1 Each subcutaneously every 72 hours. - insulin pump cart,auto,BT,G6/7 (OMNIPOD 5 G6-G7 PODS, GEN 5,) crtg Inject 1 Each subcutaneously every 72 hours. - ondansetron orally disintegrating (ZOFRAN ODT) 4 mg disintegrating tablet Take 1 tablet by mouth every 6 hours as needed for nausea/vomiting. - insulin lispro (HUMALOG KWIKPEN INSULIN) 100 unit/mL Use as directed. Max dosage up to 50 units per day. - insulin glargine (LANTUS SOLOSTAR U-100 INSULIN) 100 unit/mL (3 mL) Inject 50 Units subcutaneously once daily. In case of pump failure. - Insulin [place], Disposable, (BD ULTRAFINE III MINI PEN) 31 gauge x 3/16 Uses 8 a day - levonorgestrel (MIRENA) 21 mcg/24 hours (8 yrs) 52 mg IUD 1 Each by INTRAUTERINE route as directed. - insulin pump cart,auto,BT-cntr (OMNIPOD 5 G6 INTRO KIT, GEN 5,) crtg Inject 1 Each subcutaneously once daily. - MULTIVITAMIN ORAL Take by mouth. - omega-3 fatty acids(FISH OIL 500 MG CAP) Take one(1) capsule daily. Problem List As Of Date 04/11/2025 Noted Resolved Celiac disease [K90.0] Insulin pump titration [Z46.81] 10/08/2015 04/26/[address] [Z96.41] 09/04/2016 Type 1 diabetes mellitus (HCC) [E10.9] 09/17/2016 Myopia [H52.10] 09/17/2016 03/20/2019 Somatic dysfunction of lumbar region [M99.03] 02/15/2018 03/20/2019 Somatic dysfunction of sacroiliac joint [M99.04]02/15/2018 03/20/2019 Adjustment reaction with anxiety and depression*01/31/2021 Encounter Status:Closed by GI DAVIS on 04/12/25 [facility] KRISTOPHER WALSH ([id number]) 1990 F [facility] Date Time Provider Department 01/17/25 FRANCISCO JAVIER ZELAYAM During your visit today, we recorded the following information about you: Silvana Lowry, ABBY 01/17/2025 1:25 PM Signed Mirena IUD inserted in 2022. Pt calling stating she wants IUD removed. Had ESSURE procedure in 2012. Does not desire another IUD/or OCP at this time. Advised Pt she is overdue for annual exam as well. Pt states she currently has [facility] insurance, but recently left so she will soon possibly be transferring to a new OB provider for her annual exam, but because we placed IUD and she currently has [facility] insurance, she'd like to have IUD removed at this time. IUD removal order pending. Please file and will contact Pt to get appt scheduled. ABBY Judd Lindsey, RN 01/18/2025 9:23 AM Signed Patient called and appointment scheduled. Viri Ledezma RN Allergies As of Date: 01/17/2025 Noted Allergy Reaction GLUTEN 11/22/2012 14 - Other: See Comments Comments: Celiac disease ADHESIVE 08/10/2017 2 - Rash 9 - Itching Date Reviewed: 07/18/2024 Reviewed by: Marielos Herrera APRN.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 CLERK - Fully Assessed Reason for Visit: IUD Removal [1952] Primary Visit Diagnosis:Encounter for IUD removal [Z30.432] Order(s):REMOVE INTRAUTERINE DEVICE [[id number]] Order #: [id number] Prescriptions as of 01/18/2025 - insulin lispro (HUMALOG U-100 INSULIN) 100 unit/mL injection USE DIRECTED VIA INSULIN PUMP-MAX IS 60 UNITS DAILY - insulin pump cart,auto,BT,G6/7 (OMNIPOD 5 G6-G7 PODS, GEN 5,) crtg Inject 1 Each subcutaneously every 72 hours. - glucagon (BAQSIMI) 3 mg/actuation nasal spray Use 1 [place] in the nose as needed for low blood sugar. May repeat after 15 minutes using a new device if there is no response. - insulin pump cart,automated,BT (OMNIPOD 5 G6 PODS, GEN 5,) crtg Inject 1 Each subcutaneously every 72 hours. - insulin pump cart,auto,BT,G6/7 (OMNIPOD 5 G6-G7 PODS, GEN 5,) crtg Inject 1 Each subcutaneously every 72 hours. - ondansetron orally disintegrating (ZOFRAN ODT) 4 mg disintegrating tablet Take 1 tablet by mouth every 6 hours as needed for nausea/vomiting. - insulin lispro (HUMALOG KWIKPEN INSULIN) 100 unit/mL Use as directed. Max dosage up to 50 units per day. - insulin glargine (LANTUS SOLOSTAR U-100 INSULIN) 100 unit/mL (3 mL) Inject 50 Units subcutaneously once daily. In case of pump failure. - Blood-Glucose Meter (ONETOUCH VERIO FLEX METER) 1 Each as needed. - lancets 33 gauge Test blood sugar 5 times a day - Insulin [place], Disposable, (BD ULTRAFINE III MINI PEN) 31 gauge x 3/16 Uses 8 a day - levonorgestrel (MIRENA) 21 mcg/24 hours (8 yrs) 52 mg IUD 1 Each by INTRAUTERINE route as directed. - insulin pump cart,auto,BT-cntr (OMNIPOD 5 G6 INTRO KIT, GEN 5,) crtg Inject 1 Each subcutaneously once daily. - blood sugar diagnostic (BLOOD GLUCOSE TEST) test strip Test blood sugar(s) 5 times daily. Dx: Type 1 DM - Controlled E10.9 Insulin: Yes - MULTIVITAMIN ORAL Take by mouth. - omega-3 fatty acids(FISH OIL 500 MG CAP) Take one(1) capsule daily. Problem List As Of Date 01/17/2025 Noted Resolved Celiac disease [K90.0] Insulin pump titration [Z46.81] 10/08/2015 04/26/[address] [Z96.41] 09/04/2016 Type 1 diabetes mellitus (HCC) [E10.9] 09/17/2016 Myopia [H52.10] 09/17/2016 03/20/2019 Somatic dysfunction of lumbar region [M99.03] 02/15/2018 03/20/2019 Somatic dysfunction of sacroiliac joint [M99.04]02/15/2018 03/20/2019 Adjustment reaction with anxiety and depression*01/31/2021 Encounter Status:Closed by VIRI LEDEZMA on 01/18/25 Normal [facility] HEP B SURFACE AB, QUANT [CCL ]on 07-10-2024 HepB Surface Ab,Qual Positive Normal [facility] Comment on above: Result Comment: Cons istent with serological evidence of immunity to Hepatitis B Virus. Performed By: #### 2 [id number] #### [facility],[address] [place] [address] HepB SurfaceAb,Quant 17.22 mIU/mL Normal [facility] Comment on above: Result Comment: <8 m IU/mL: No serological evidence of immunity to Hepatitis B Virus. >/= 8 to <12 mIU/mL: No serological evidence of immunity to Hepatitis B Virus. >/= 12 mIU/mL: Consistent with serological evidence of immunity to Hepatitis B Virus. [place] [id number] Devang Ordaz III, M.D. [id number] Performed By: #### 2 77305 #### [address] [address] MEASLES IGG ANTIBODY [CCL]on 07-10-2024 Measles IgG, Qual Positive Normal Positive [facility] Comment on above: Result Comment: The result suggests recent or past exposure to Measles virus or Measles vaccination. The current test does not detect neutralizing antibodies. Positive result may also be seen due to presence of passively-transferred antibodies. Please correlate with patient's history. [facility] [address] [place], [place] [id number] Devang Ordaz III, M.D. [id number] Performed By: #### 2 36074 #### [facility],[address] [place] [address] MUMPS IGG AB [CCL]on 024 Mumps IgG, Qual Positive Normal Positive [facility] Comment on above: Result Comment: The result suggests recent or past exposure to Mumps virus or Mumps vaccination. The current test does not detect neutralizing antibodies. Positive result may also be seen due to presence of passively-transferred antibodies. Please correlate with patient's history. [facility] [place] [address] Devang Ordaz III, M.D. [id number] Performed By: #### 2 30728 #### [facility],[address] [place] [address] QUANTIFERON TB INCUBATED [CC L]on 07-10-2024 Mitogen minus Nil >9.96 Normal >=0.50 [facility] Comment on above: Performed By: #### 2 01420 #### [facility],[address] [place], [place] [id number] TB Gamma Interpretation Infection with M. tuberculosis complex is unlikely. If latent tuberculosis infec Normal [facility] Comment on above: Result Comment: [facility] [address] [place] [address] Devang Ordaz III, M.D. [id number] Performed By: #### 2 98381 #### [facility],[address] [place] [address] TB NIL 0.04 IU/mL Normal <=8.00 [facility] Comment on above: Performed By: #### 2 53556 #### [facility],[address] [place] [address] TB Result Negative Normal [facility] Comment on above: Performed By: #### 2 53984 #### [facility],[address] [place] [address] TB1 Ag minus Nil 0.02 IU/mL Normal <0.35 [facility] Comment on above: Performed By: #### 2 66350 #### [facility],[address] [place] [address] TB2 Ag minus Nil <0.00 Normal <0.35 [facility] Comment on above: Performed By: #### 2 26472 #### [facility],[address] [place] [address] RUBELLA IgG ANTIBODY [CCL]on 07-10-2024 Rubella IgG Ab, Qual Positive Normal Positive [facility] Comment on above: Result Comment: The result suggests recent or past exposure to Rubella virus or history of Rubella vaccination. Positive result may also be seen due to presence of passively-transferred antibodies. Please correlate with patient's history. [facility] [address] [place] [address] Devang Ordaz III, M.D. [id number] Performed By: #### 2 25036 #### [facility],[address] [place] [id number] URINE COTININE TEST [[facility]]on 07-07-2024 COTININE Negative Normal NORMAL: NEGATIVE [facility] Comment on above: Result Comment: The COT One Step Cotinine Device (Urine) yields a positve result when the Cotinine in urine exceeds 200 ng/mL. A Cotinine concentration > 200 ng/mL indicates an active tobacco product user. The window of detection for Cotinine in urine at a cutoff level of 200 ng/mL is expected to be up to 2-3 days after nicotine use. Performed By: #### 2 87626 #### [facility],[address] [place] [address] UA DIP, URINE (POC)on 2023 BILIRUBIN UA (POCT) Negative Negative [facility] CLARITY UA (POCT) Clear [facility] COLOR UA (POCT) Yellow [facility] GLUCOSE UA (POCT) Negative Negative mg/dL [facility] Hemoglobin Ql (U) Small Abnormal Negative [facility] Interpretation and review of laboratory results Abnormal [facility] KETONE UA (POCT) Negative Negative mg/dL [facility] LEUKOCYTES UA (POCT) Negative Negative [facility] NITRITE UA (POCT) Negative Negative [facility] PH UA (POCT) 7.0 4.5 - 8.0 [facility] Protein Ql (U) Negative Negative mg/dL [facility] SPECIFIC GRAVITY UA (POCT) 1.010 1.005 - 1.030 [facility] UROBILINOGEN UA (POCT) 0.2 Normal E.U./dL [facility] Location:[address], [place], [place], [address] [place] [address] POINT OF CARE [facility] CBC W Auto Differential pane l (Bld)on 02-14-2024 Basophils (Bld) [#/Vol] 0.06 10*3/uL <0.11 k/uL [facility] Basophils/100 WBC (Bld) 0.8 % [facility] Differential cell count method Nom (Bld) Auto [facility] Eosinophils (Bld) [#/Vol] 0.10 10*3/uL <0.46 k/uL [facility] Eosinophils/100 WBC (Bld) 1.4 % [facility] Erythrocyte distribution width (RBC) [Ratio] 12.1 % 11.5 - 15.0 % [facility] Hematocrit (Bld) [Volume fraction] 40.7 % 36.0 - 46.0 % [facility] Hemoglobin (Bld) [Mass/Vol] 13.5 g/dL 11.5 - 15.5 g/dL [facility] Immature granulocytes (Bld) [#/Vol] <0.10 k/uL [facility] Immature granulocytes/100 WBC (Bld) 0.3 % [facility] Lymphocytes (Bld) [#/Vol] 2.55 10*3/uL 1.00 - 4.00 k/uL [facility] Lymphocytes/100 WBC (Bld) 34.7 % [facility] MCH (RBC) [Entitic mass] 31.7 pg 26.0 - 34.0 pg [facility] MCHC (RBC) [Mass/Vol] 33.2 g/dL 30.5 - 36.0 g/dL [facility] MCV (RBC) [Entitic vol] 95.5 fL 80.0 - 100.0 fL [facility] Monocytes (Bld) [#/Vol] 0.71 10*3/uL <0.87 k/uL [facility] Monocytes/100 WBC (Bld) 9.7 % [facility] Neutrophils (Bld) [#/Vol] 3.91 10*3/uL 1.45 - 7.50 k/uL [facility] Neutrophils/100 WBC (Bld) 53.1 % [facility] Nucleated RBC (Bld) [#/Vol] <0.01 k/uL [facility] Nucleated RBC/100 WBC (Bld) [Ratio] 0.0 /100 WBC [facility] Platelet mean volume (Bld) [Entitic vol] 11.1 fL 9.0 - 12.7 fL [facility] Platelets (Bld) [#/Vol] 289 10*3/uL 150 - 400 k/uL [facility] RBC (Bld) [#/Vol] 4.26 10*6/uL 3.90 - 5.2 0 m/uL [facility] WBC (Bld) [#/Vol] 7.35 10*3/uL 3.70 - 11. 00 k/uL [facility] ESR Westergren method (Bld) [Velocity]on 02-14-2024 ESR (Bld) [Velocity] 2 mm/h 0 - 20 mm/hr [facility] XR Abdomen Supine and Uprigh ton 02-14-2024 IMPRESSION: Unremarkable abdomen x-ray. Desktop Publishing Specialist: PSCB Transcribe Date/Time: Feb 14 2024 5:00P Dictated by : MORENA DOVER MD This examination was interpreted and the report reviewed and electronically signed by: MORENA DOVER MD on Feb 14 2024 5:01PM [facility] DIVISION OF RADIOLOGY * * *Final Report* * * DATE OF EXAM: Feb 14 2024 1:35PM WOX [id number] - XR ABDOMEN 1V SUPINE / PROCEDURE REASON: multiple diagnoses * * * * Physician Interpretation * * * * EXAM TITLE: XR ABDOMEN 1V SUPINE EXAM DATE/TIME: 02/14/2024 1:35 PM COMPARISON: None. CLINICAL INDICATION/HISTORY: Diarrhea. TECHNIQUE: AP views of the abdomen are presented. FINDINGS: No abnormally dilated bowel loops identified. Small amount of stool and gas demonstrated in the large bowel loops. Status post bilateral Essure procedure. There is a T-shaped IUD in the pelvis. There are no abnormal calcifications. The bony structures appear intact. DIVISION OF RADIOLOGY Provider, [facility] - 02/14/2024 * * *Final Report* * * DATE OF EXAM: Feb 14 2024 1:35PM WOX 5289 - XR ABDOMEN 1V SUPINE / PROCEDURE REASON: multiple diagnoses * * * * Physician Interpretation * * * * EXAM TITLE: XR ABDOMEN 1V SUPINE EXAM DATE/TIME: 02/14/2024 1:35 PM COMPARISON: None. CLINICAL INDICATION/HISTORY: Diarrhea. TECHNIQUE: AP views of the abdomen are presented. FINDINGS: No abnormally dilated bowel loops identified. Small amount of stool and gas demonstrated in the large bowel loops. Status post bilateral Essure procedure. There is a T-shaped IUD in the pelvis. There are no abnormal calcifications. The bony structures appear intact. IMPRESSION IMPRESSION: Unremarkable abdomen x-ray. Desktop Publishing Specialist: JESUS Transcribe Date/Time: Feb 14 2024 5:00P Dictated by : MORENA DOVER MD This examination was interpreted and the report reviewed and electronically signed by: MORENA DOVER MD on Feb 14 2024 5:01PM EST [facility] Radiology Study observation (narrative) [facility] XR Abdomen Supine and Uprigh tOrdered By: [facility] Provider on 02-14-2024 [facility] HEMOGLOBIN A1C (POC)on 03-12 HbA1c (Bld) [Mass fraction] 5.8 % 4.2 - 5.6 % [facility] XR Chest PA and Lateralon IMPRESSION: No acute radiographic abnormality. Desktop Publishing Specialist: JESUS Transcribe Date/Time: Feb 12 2021 4:43P Dictated by : NORMA UBNDY MD This examination was interpreted and the report reviewed and electronically signed by: NORMA BUNDY MD on Feb 12 2021 4:45PM [facility] DIVISION OF RADIOLOGY * * *Final Report* * * DATE OF EXAM: Feb 12 2021 4:39PM WOX 5291 - XR CHEST 2V FRONTAL/LAT / PROCEDURE REASON: Rhonchi * * * * Physician Interpretation * * * * EXAMINATION: CHEST RADIOGRAPH (2 VIEW FRONTAL & LATERAL) CLINICAL HISTORY: Rhonchi MQ: XC2_6 EXAM DATE/TIME: 02/12/2021 4:39 PM COMPARISON: No relevant prior studies available. RESULT: Lines, tubes, and devices: None. Lungs and pleura: No consolidation. No lung mass. No pleural effusion. No pneumothorax. Cardiomediastinal silhouette: Normal cardiomediastinal silhouette. Bones and soft tissues: Unremarkable. DIVISION OF RADIOLOGY Provider, [facility] - 02/12/2021 * * *Final Report* * * DATE OF EXAM: Feb 12 2021 4:39PM WOX 5291 - XR CHEST 2V FRONTAL/LAT / PROCEDURE REASON: Rhonchi * * * * Physician Interpretation * * * * EXAMINATION: CHEST RADIOGRAPH (2 VIEW FRONTAL & LATERAL) CLINICAL HISTORY: Rhonchi MQ: XC2_6 EXAM DATE/TIME: 02/12/2021 4:39 PM COMPARISON: No relevant prior studies available. RESULT: Lines, tubes, and devices: None. Lungs and pleura: No consolidation. No lung mass. No pleural effusion. No pneumothorax. Cardiomediastinal silhouette: Normal cardiomediastinal silhouette. Bones and soft tissues: Unremarkable. IMPRESSION IMPRESSION: No acute radiographic abnormality. Desktop Publishing Specialist: PSCB Transcribe Date/Time: Feb 12 2021 4:43P Dictated by : NORMA BUNDY MD This examination was interpreted and the report reviewed and electronically signed by: NORMA BUNDY MD on Feb 12 2021 4:45PM EST [facility] Radiology Study observation (narrative) [facility] XR Chest PA and LateralOrder ed By: [facility] Provider on 02-12-2021 [facility] No Panel Information [facility] Vital Signs Date Time Vital Sign Value Performing Clinician Facility 06-12-2025 10:10-0400 Body temperature 97.6 [degF] Dr. Bertrand Wallace MD Work Phone: 4(696)095-677169 [place] [address] 06-12-2025 10:10-0400 Diastolic blood pressure 58 mm[Hg] Dr. Bertrand Wallace MD Work Phone: 8(289)598-664224 [place] [address] 06-12-2025 10:10-0400 Heart rate 63 /min Dr. Bertrand Wallace MD Work Phone: 2(584)163-748124 [place] [address] 06-12-2025 10:10-0400 Respiratory rate 16 /min Dr. Bertrand Wallace MD Work Phone: 1(559)323-399069 [place] [address] 06-12-2025 10:10-0400 SaO2% (BldA) [Mass fraction] 100 % Dr. Bertrand Wallace MD Work Phone: 8(649)897-401569 [place] [address] 06-12-2025 10:10-0400 Systolic blood pressure 98 mm[Hg] Dr. Bertrand Wallace MD Work Phone: 8(882)740-400869 [place] [address] 06-12-2025 08:16-0400 Body height 165.[address] Bertrand Wallace MD Work Phone: 4(498)520-051124 [place] [address] 06-12-2025 08:16-0400 Body mass index (BMI) [Ratio] 20.9 kg/m2 Dr. Bertrand Wallace MD Work Phone: 6(364)153-237524 [place] [address] 06-12-2025 08:16-0400 Body weight [address] Bertrand Wallace MD Work Phone: 9(082)597-102624 [place] [address] 05-22-2025 15:13-0400 Body height 165.[address] Bertrand Wallace MD Work Phone: 8(798)552-497724 [place] [address] 05-22-2025 15:13-0400 Body mass index (BMI) [Ratio] 21.6 kg/m2 Dr. Bertrand Wallace MD Work Phone: 2(636)327-928824 [place] [address] 05-22-2025 15:13-0400 Body temperature 97.8 [degF] Dr. Bertrand Wallace MD Work Phone: 5(976)474-405424 [place] [address] 05-22-2025 15:13-0400 Body weight 58.[address] Bertrand Wallace MD Work Phone: 8(148)605-500324 [place] [address] 05-22-2025 15:13-0400 Diastolic blood pressure 73 mm[Hg] Dr. Bertrand Wallace MD Work Phone: 4(870)059-663624 [place] [address] 05-22-2025 15:13-0400 Heart rate 66 /min Dr. Bertrand Wallace MD Work Phone: 1(728)358-102824 [place] [address] 05-22-2025 15:13-0400 Respiratory rate 17 /min Dr. Bertrand Wallace MD Work Phone: 5(499)458-543924 [place] [address] 05-22-2025 15:13-0400 SaO2% (BldA) [Mass fraction] 99 % Dr. Bertrand Wallace MD Work Phone: 0(125)115-139624 [place] [address] 05-22-2025 15:13-0400 Systolic blood pressure 115 mm[Hg] Dr. Bertrand Wallace MD Work Phone: 9(590)433-390624 [place] [address] 05-15-2025 07:40-0400 Body mass index (BMI) [Ratio] 21.47 kg/m2 Maya Rothman PA-C Work Phone: [facility] 05-15-2025 07:40-0400 Body temperature 98.2 [degF] Maya Rothman PA-C Work Phone: [facility] 05-15-2025 07:40-0400 Body weight 58.51 kg Maya Rotmhan PA-C Work Phone: [facility] 05-15-2025 07:40-0400 Diastolic blood pressure 72 mm[Hg] Maya Rothman PA-C Work Phone: [facility] 05-15-2025 07:40-0400 Heart rate 60 /min Maya Rothman PA-C Work Phone: [facility] 05-15-2025 07:40-0400 Respiratory rate 16 /min Maya Rothman PA-C Work Phone: [facility] 05-15-2025 07:40-0400 SaO2% (BldA) [Mass fraction] 98 % Maya Rothman PA-C Work Phone: [facility] 05-15-2025 07:40-0400 Systolic blood pressure 110 mm[Hg] Maya Rothman PA-C Work Phone: [facility] 07-18-2024 08:37-0400 Body mass index (BMI) [Ratio] 21.97 kg/m2 Marielos Suppan SENIOR ACTUARIAL ANALYST.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 CLERK Work Phone: [facility] 07-18-2024 08:37-0400 Body weight 59.88 kg Marielos Suppan SENIOR ACTUARIAL ANALYST.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 CLERK Work Phone: [facility] 07-18-2024 08:37-0400 Diastolic blood pressure 62 mm[Hg] Marielos Suppan SENIOR ACTUARIAL ANALYST.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 CLERK Work Phone: [facility] 07-18-2024 08:37-0400 Heart rate 68 /min Marielos Suppan SENIOR ACTUARIAL ANALYST.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 CLERK Work Phone: [facility] 07-18-2024 08:37-0400 Respiratory rate 16 /min Marielos Suppan SENIOR ACTUARIAL ANALYST.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 CLERK Work Phone: [facility] 07-18-2024 08:37-0400 SaO2% (BldA) [Mass fraction] 99 % Marielos Herrera SENIOR ACTUARIAL ANALYST.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 CLERK Work Phone: [facility] 07-18-2024 08:37-0400 Systolic blood pressure 110 mm[Hg] Marielos Herrera SENIOR ACTUARIAL ANALYST.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 CLERK Work Phone: [facility] 06-07-2024 10:21-0400 Body mass index (BMI) [Ratio] 21.8 kg/m2 Michelle Podlogar SENIOR ACTUARIAL ANALYST.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 CLERK Work Phone: [facility] 06-07-2024 10:21-0400 Body temperature 98.6 [degF] Michelle Podlogar SENIOR ACTUARIAL ANALYST.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 CLERK Work Phone: [facility] 06-07-2024 10:21-0400 Body weight 59.42 kg Michelle Podlogar SENIOR ACTUARIAL ANALYST.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 CLERK Work Phone: [facility] 06-07-2024 10:21-0400 Diastolic blood pressure 70 mm[Hg] Michelle Podlogar SENIOR ACTUARIAL ANALYST.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 CLERK Work Phone: [facility] 06-07-2024 10:21-0400 Heart rate 60 /min Michelle Podlogar SENIOR ACTUARIAL ANALYST.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 CLERK Work Phone: [facility] 06-07-2024 10:21-0400 Respiratory rate 12 /min Michelle Podlogar SENIOR ACTUARIAL ANALYST.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 CLERK Work Phone: [facility] 06-07-2024 10:21-0400 Systolic blood pressure 100 mm[Hg] Michelle Podlogar SENIOR ACTUARIAL ANALYST.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 CLERK Work Phone: [facility] 02-14-2024 12:35-0400 Body temperature 98.6 [degF] Maya Rothman PA-C Work Phone: [facility] 02-14-2024 12:35-0400 Body weight 60.78 kg Maya Rothman PA-C Work Phone: [facility] 02-14-2024 12:35-0400 Diastolic blood pressure 64 mm[Hg] Maya Rothman PA-C Work Phone: [facility] 02-14-2024 12:35-0400 Heart rate 62 /min Maya Rothman PA-C Work Phone: [facility] 02-14-2024 12:35-0400 Respiratory rate 16 /min Maya Rothman PA-C Work Phone: [facility] 02-14-2024 12:35-0400 SaO2% (BldA) [Mass fraction] 99 % Maya Rothman PA-C Work Phone: [facility] 02-14-2024 12:35-0400 Systolic blood pressure 112 mm[Hg] Maya Rothman PA-C Work Phone: [facility] 03-15-2023 09:06-0400 Body height 165.1 cm Maya Rothman PA-C Work Phone: [facility] 03-15-2023 09:06-0400 Body weight 59.42 kg Maya Rothman PA-C Work Phone: [facility] 03-15-2023 09:06-0400 Diastolic blood pressure 70 mm[Hg] Maya Rothman PA-C Work Phone: [facility] 03-15-2023 09:06-0400 Heart rate 68 /min Maya Rothman PA-C Work Phone: [facility] 03-15-2023 09:06-0400 Respiratory rate 16 /min Mayairais Rothman PA-C Work Phone: [facility] 03-15-2023 09:06-0400 SaO2% (BldA) [Mass fraction] 98 % Maya Rothman PA-C Work Phone: [facility] 03-15-2023 09:06-0400 Systolic blood pressure 104 mm[Hg] Maya Rothman PA-C Work Phone: [facility] 12-29-2022 09:35-0500 Body weight 59.06 kg Shalini Hawk APRN.CNM Work Phone: [facility] 12-29-2022 09:35-0500 Diastolic blood pressure 60 mm[Hg] Shalini Hawk APRN.CNM Work Phone: [facility] 12-29-2022 09:35-0500 Systolic blood pressure 102 mm[Hg] Shalini Hawk APRN.CNM Work Phone: [facility] 11-19-2022 15:01-0500 Body temperature 97.39 [degF] Zoë Cool MD Work Phone: [facility] 11-19-2022 15:01-0500 Body weight 57.29 kg Zoë Cool MD Work Phone: [facility] 11-19-2022 15:01-0500 Diastolic blood pressure 75 mm[Hg] Zoë Cool MD Work Phone: [facility] 11-19-2022 15:01-0500 Heart rate 71 /min Zoë Cool MD Work Phone: [facility] 11-19-2022 15:01-0500 Systolic blood pressure 131 mm[Hg] Zoë Cool MD Work Phone: [facility] 03-12-2022 08:00-0400 Body weight 58.97 kg Bertrand Wallace MD Work Phone: [facility] 03-12-2022 08:00-0400 Diastolic blood pressure 62 mm[Hg] Bertrand Wallace MD Work Phone: [facility] 03-12-2022 08:00-0400 Heart rate 72 /min Bertrand Wallace MD Work Phone: [facility] 03-12-2022 08:00-0400 Systolic blood pressure 112 mm[Hg] Bertrand Wallace MD Work Phone: [facility] Encounters Encounter Date Encounter Type Care Provider Facility Start: 07-06-2025 End: 07-06-2025 Telephone encounter Bertrand Wallace MD Work Phone: [facility] Comment on above: Orders Start: 06-12-2025 ambulatory Bertrand Wallace Facility:[facility] Start: 06-12-2025 Non-patient / Non-visit Dr. Angle OLIVAS -[facility] Start: 06-12-2025 End: 06-12-2025 Admission to same day surgery center Dr. Vinay Ochoa MD -Endoscopy Work Phone: Start: 06-12-2025 End: 06-12-[address] Bertrand Wallace MD Work Phone: -Endoscopy Start: 05-27-2025 End: 06-20-2025 ambulatory Maya Rothman PA-C Work Phone: [facility] Comment on above: Colonoscopy Start: 05-22-2025 End: 05-22-[address] Vinay Ochoa MD -[facility] Work Phone: Start: 05-22-2025 End: 05-22-[address] Bertrand Wallace MD Work Phone: -[facility] Start: 05-22-2025 End: 05-22-2025 Telephone encounter Maya Rothman PA-C Work Phone: [facility] Comment on above: Results Start: 05-21-2025 End: 05-21-[address] Bertrand Wallace MD Work Phone: -Cat [facility] Start: 05-21-2025 End: 05-21-2025 Patient encounter procedure Maya BEYER -Cat [facility] Work Phone: Start: 05-21-2025 End: 05-21-2025 ambulatory Bertrand [place] Facility:[facility] Start: 05-15-2025 End: 05-15-2025 Office outpatient visit 25 minutes Maya Rothman PA-C Work Phone: [facility] [place] Comment on above: Diarrhea, unspecifie d type (Primary Dx); Left lower quadrant abdominal pain; Celiac disease (HCC) Start: 05-15-2025 End: 05-15-2025 ambulatory MAYA ROTHMAN Facility:[facility] Start: 05-10-2025 End: 05-10-2025 Patient encounter procedure Jeanna Mcqueen OD Work Phone: Ophthalmology Comment on above: Type 1 diabetes zuleyma itus without retinopathy (HCC) (Primary Dx); History of laser refractive surgery; Punctate keratitis of right eye Start: 05-10-2025 End: 05-10-2025 ambulatory JEANNA MCQUEEN Facility:[facility] Start: 04-11-2025 End: 04-12-2025 ambulatory Bertrand Wallace MD Work Phone: [facility] [place] Comment on above: Prior auth Start: 04-11-2025 End: 04-12-2025 Telephone encounter Bertrand Wallace MD Work Phone: [facility] Comment on above: Insurance Authorizat ion Start: 02-15-2025 ambulatory Health Risk Assessment Facility:[facility] Start: 02-08-2025 Registered [employer] -Employee Health Start: 01-31-2025 End: 01-31-2025 Refill Bertrand Wallace MD Work Phone: [facility] [place] Comment on above: Refill Request Start: 01-17-2025 End: 01-18-2025 Telephone encounter Francisco Javier Zelaya APRN.CNP Work Phone: OB/Gynecology Comment on above: IUD Removal Start: 11-06-2024 End: 11-06-2024 ambulatory Bertrand Wallace MD Work Phone: [facility] [place] Comment on above: New Insurance card Start: 08-09-2024 End: 08-10-2024 Refill Bertrand Wallace MD Work Phone: [facility] [place] Comment on above: Med Change Request Start: 08-09-2024 End: 08-09-2024 Telephone encounter Bertrand Wallace MD Work Phone: [facility] [place] Comment on above: Insurance Authorizat ion (Insulin lispro ) Start: 08-08-2024 End: 08-08-2024 Refill Bertrand Wallace MD Work Phone: [facility] [place] Comment on above: Refill Request Refill Request; Medi cation Problem Start: 07-18-2024 End: 07-18-2024 Office outpatient visit 15 minutes Marielos Herrera APRN.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 CLERK Work Phone: [facility] [place] Comment on above: Type 1 diabetes zuleyma itus (HCC) (Primary Dx); RLS (restless legs syndrome); Screening for depression; Encounter for screening examination for other mental health and behavioral disorders Start: 07-07-2024 End: 07-07-2024 ambulatory [facility] Start: 07-07-2024 Encounter for genera l adult medical examination without abnormal findings [facility] Start: 06-19-2024 End: 06-19-2024 Refill Bertrand Wallace MD Work Phone: [facility] Start: 06-08-2024 ambulatory Clover Bailon RN [facility] Comment on above: DIABETES Start: 06-07-2024 End: 06-07-2024 Patient encounter procedure Michelle Laguerre APRN.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 CLERK Work Phone: [facility] [place] Comment on above: Dysuria (Primary Dx) Start: 05-09-2024 End: 05-09-2024 Patient encounter procedure Jeanna Mcqueen OD Work Phone: Ophthalmology Comment on above: Type 1 diabetes zuleyma itus without retinopathy (HCC) (Primary Dx); History of laser refractive surgery; Punctate keratitis of right eye Start: 05-08-2024 Refill Bertrand Wallace MD Work Phone: [facility] [place] Comment on above: Refill Request Start: 02-14-2024 Telephone encounter Maya chakraborty PA-C Work Phone: [facility] [place] Comment on above: Consult Start: 02-14-2024 End: 02-14-2024 Subsequent hospital visit by physician Cadence [facility] [place] Work Phone: Radiology Comment on above: Diarrhea, unspecifie d type [R19.7] Start: 02-14-2024 End: 02-14-2024 Patient encounter procedure Maya Rothman PA-C Work Phone: [facility] [place] Comment on above: Diarrhea, unspecifie d type (Primary Dx); LLQ pain Start: 01-31-2024 End: 01-31-2024 Nursing evaluation of patient and report Mi Nurse Work Phone: [facility] [place] Comment on above: Type 1 diabetes zuleyma itus (HCC) (Primary Dx) Start: 01-31-2024 Telephone encounter Bertrand Wallace MD Work Phone: [facility] [place] Comment on above: Orders Start: 12-31-2023 ambulatory Clover Bailon RN [facility] Comment on above: DIABETES Start: 10-05-2023 ambulatory Scott PERRY RN.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 CLERK Work Phone: [facility] [place] Start: 10-05-2023 E-mail encounter fro m caregiver Scott Carrera APRN.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 CLERK Work Phone: [facility] [place] Start: 09-22-2023 Refill Bertrand Wallace MD Work Phone: [facility] [place] Comment on above: Refill Request Start: 08-04-2023 Refill Francisco Javier PERRY RN.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 CLERK Work Phone: OB/Gynecology Start: 06-08-2023 End: 06-08-2023 Nursing evaluation of patient and report Mi Nurse Work Phone: [facility] [place] Comment on above: Controlled diabetes mellitus type 1 without complications (HCC) (Primary Dx) Start: 05-07-2023 Telephone encounter Bertrand Wallace MD Work Phone: [facility] [place] Comment on above: Orders (DM supplies ) Start: 04-09-2023 End: 04-09-2023 Patient encounter procedure Jeanna Mcqueen OD Work Phone: Ophthalmology Comment on above: Type 1 diabetes zuleyma itus without retinopathy (HCC) (Primary Dx); History of laser refractive surgery Start: 03-15-2023 End: 03-15-2023 Office outpatient visit 15 minutes Maya Rothman PA-C Work Phone: [facility] [place] Comment on above: RLS (restless legs s yndrome) (Primary Dx); Numbness and tingling Start: 02-08-2023 Refill Bertrand Wallace MD Work Phone: [facility] Comment on above: Refill Request Start: 01-29-2023 Refill Hunter Bojorquez on PA-C Work Phone: Coumad[facility] Comment on above: Refill Request Start: 01-14-2023 End: 01-14-2023 Patient encounter procedure Vasu De La Cruz MD Work Phone: Plastic Surgery Comment on above: Encounter for cosmet ic surgery (Primary Dx) Start: 12-29-2022 End: 12-29-2022 Patient encounter procedure Shalini Hawk APRN.CNHunter Work Phone: OB/Gynecology Comment on above: Encounter for IUD in sertion (Primary Dx) Start: 12-28-2022 ambulatory Shalini Hawk APRN.CNM Work Phone: OB/Gynecology Comment on above: Iud Start: 11-19-2022 End: 11-19-2022 Patient encounter procedure Zoë Cool MD Work Phone: Rheumatology Comment on above: Malaise and fatigue (Primary Dx); Positive ELI (antinuclear antibody); History of type 1 diabetes mellitus; History of celiac disease Start: 10-22-2022 Telephone encounter Arleth gan SENIOR ACTUARIAL ANALYST.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 CLERK Work Phone: [facility] Comment on above: Patient Question; re sults; Patient Update Start: 10-19-2022 Patient Update Te [facility] Comment on above: Medication Update (R efill auth consent) Start: 10-17-2022 ambulatory Arleth Haynes SENIOR ACTUARIAL ANALYST.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 CLERK Work Phone: Endocrinology Comment on above: Question regarding A NA BY IFA SCREEN Start: 10-15-2022 Refill Bertrand Wallace MD Work Phone: [facility] Comment on above: Refill Request Start: 10-14-2022 End: 10-14-2022 Patient encounter procedure Arleth Haynes SENIOR ACTUARIAL ANALYST.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 CLERK Work Phone: Endocrinology Comment on above: Controlled diabetes mellitus type 1 without complications (HCC) (Primary Dx); Insulin pump titration; Malaise and fatigue Start: 10-13-2022 Telephone encounter Bertrand Wallace MD Work Phone: [facility] [place] Comment on above: Forms (FMLA) Start: 09-29-2022 Telephone encounter Bertrand Wallace MD Work Phone: [facility] [place] Comment on above: Consult Start: 08-28-2022 ambulatory Clover Bailon RN [facility] Comment on above: DIABETES Start: 08-19-2022 Refill Bertrand Wallace MD Work Phone: [facility] [place] Comment on above: Refill Request Start: 08-06-2022 Telephone encounter Bertrand Wallace MD Work Phone: [facility] [place] Comment on above: Forms (PRIOR AUTH FO R OMNIPOD) Start: 07-09-2022 Telephone encounter Bertrand Wallace MD Work Phone: [facility] [place] Comment on above: Orders Start: 06-12-2022 Telephone encounter Bertrand Wallace MD Work Phone: [facility] [place] Comment on above: Darlene Ahuja ply--fax requested Start: 06-10-2022 Telephone encounter Bertrand Wallace MD Work Phone: [facility] [place] Comment on above: Maricarmen Walker Shen pplies Start: 06-05-2022 ambulatory Clover Bailon RN [facility] Comment on above: DIABETES Start: 04-29-2022 Refill Bertrand Wallace MD Work Phone: [facility] [place] Comment on above: Refill Request Start: 03-12-2022 End: 03-12-2022 Patient encounter procedure Bertrand Wallace MD Work Phone: [facility] [place] Comment on above: Type 1 diabetes zuleyma itus (HCC) (Primary Dx); Celiac disease; Adjustment reaction with anxiety and depression; Insulin pump in place Start: 03-05-2022 Telephone encounter Stanley Dominique MD Work Phone: Endocrinology Comment on above: DWO for CGM, Insulin Pump and Infusion supplies. ([employer]) Start: 03-04-2022 Telephone encounter Bertrand Wallace MD Work Phone: [facility] [place] Comment on above: Medication Question Start: 02-20-2022 End: 02-20-2022 Patient encounter procedure Joe Jerome OD Work Phone: Ophthalmology Comment on above: S/P LASIK (laser ass isted in situ keratomileusis) (Primary Dx) Start: 02-19-2022 End: 02-19-2022 Patient encounter procedure Norma Rock MD Work Phone: Ophthalmology Comment on above: Myopic astigmatism o f both eyes Start: 01-21-2022 End: 01-21-2022 Patient encounter procedure Norma Rock MD Work Phone: Ophthalmology Comment on above: Refractive error Start: 02-12-2021 End: 02-12-2021 Subsequent hospital visit by physician Xr [facility] [place] Work Phone: Radiology Comment on above: Rhonchi [R09.89] Procedures Date Procedure Procedure Detail Performing Clinician Start: 06-12-[address] Bertrand Wallace MD Work Phone: Start: 05-21-2025 Computed tomography of abdomen and pelvis with contrast Dr. Bertrand Wallace MD Work Phone: Start: 05-21-[address] Bertrand Wallace MD Work Phone: Start: 07-18-2024 Adult depression screening assessment Marielos Herrera SENIOR ACTUARIAL ANALYST.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 CLERK Work Phone: Start: 06-07-2024 Urnls dip stick/tablet rgnt auto w/o microscopy Michelle Laguerre SENIOR ACTUARIAL ANALYST.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 CLERK Work Phone: Start: 02-14-2024 Radiologic exam abdomen 1 view Maya Rothman PA-C Work Phone: Start: 03-12-2022 Hemoglobin A1c/Hemoglobin.total in Blood Bertrand Wallace MD Work Phone: Start: 03-12-2022 Adult depression screening assessment Bertrand Wallace MD Work Phone: Start: 02-19-2022 REFRACTIVE SURGERY OD (RIGHT EYE) Norma Rock MD Work Phone: Start: 02-19-2022 REFRACTIVE SURGERY OS (LEFT EYE) Norma Rock MD Work Phone: Start: 02-12-2021 Radiologic exam chest 2 views Riley Day SENIOR ACTUARIAL ANALYST.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 CLERK Work Phone: Start: 09-15-2016 Adult depression screening assessment Norma Rock MD Work Phone: History of laser ass isted in situ keratomileusis S/P LASIK (laser assisted in situ keratomileusis) Joe Jerome OD Work Phone: Plan of Treatment Date Care Activity Detail Author Start: 07-29-2031 Urine microalbumin profile [facility] Start: 05-15-2026 Annual PCP Team Chronic Disease Visit Annual PCP Team Chronic Disease Visit [facility] Start: 05-14-2026 End: 05-14-2026 Patient encounter procedure 05/14/2026 2:45 PM EDT Office Visit [facility] [address] [place] [address] Jeanna Mcqueen, OD [address] [place] [address] [facility] [address] [address] 1 yr f/u for diabetic eye exam. Ophthalmology Comment on above: 1 yr f/u for diabetic eye exam. Start: 05-10-2026 Glaucoma screening Dilated Retinal Exam [facility] Start: 07-18-2025 Annual PCP Team Chronic Disease Visit Annual PCP Team Chronic Disease Visit [facility] Start: 07-18-2025 Anxiety Screening Anxiety Screening [facility] Start: 07-18-2025 Depression Screening Depression Screening [facility] Start: 07-02-2025 Influenza vaccination [facility] Start: 06-12-[address] [facility] Start: 06-07-2025 Annual PCP Team Chronic Disease Visit Annual PCP Team Chronic Disease Visit [facility] Start: 05-15-2025 End: 08-14-2025 Basic metabolic 2000 panel - Serum or Plasma [facility] Comment on above: Expected: 05/15/2025, Expires: Start: 05-10-2025 End: 05-10-2025 Patient encounter procedure 05/10/2025 2:30 PM EDT Office Visit [facility] [address] [place] [address] Jeanna Mcqueen, OD [address] [place] [address] 1 YR diabetic eye exam. Ophthalmology Comment on above: 1 YR diabetic eye exam. Start: 05-09-2025 Glaucoma screening Dilated Retinal Exam [facility] Start: 04-30-2025 Influenza vaccination Influenza Vaccine (#1) [place] [facility] Comment on above: Postponed from 07/02/2024 (Declined at t his time) Start: 02-13-2025 Annual PCP Team Chronic Disease Visit Annual PCP Team Chronic Disease Visit [facility] Start: 01-25-2025 End: 01-25-2025 Patient encounter procedure 01/25/2025 11:45 AM EDT Office Visit OB/Gynecology [address] [place] [address] Francisco Javier Zelaya APRN.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 CLERK [address] [place] [address] IUD Removal OB/Gynecology Comment on above: IUD Removal Start: 10-04-2024 Annual PCP Team Chronic Disease Visit Annual PCP Team Chronic Disease Visit [facility] Start: 10-04-2024 Hepatitis B screening Urine Albumin:Creatinine Ratio [facility] Start: 10-04-2024 Hepatitis B surface antibody level LDL Cholesterol [facility] Start: 08-01-2024 Hemoglobin A1c measurement HbA1C [facility] Start: 07-02-2024 Covid-19 Vaccine () Covid-19 Vaccine () [facility] Start: 07-02-2024 Covid-19 Vaccine ( season) Covid-19 Vaccine () [facility] Start: 07-02-2024 Influenza vaccination [facility] Start: 06-05-2024 HPV TESTING HPV TESTING [facility] Start: 06-05-2024 PAP TESTING PAP TESTING [facility] Start: 06-05-2024 Screening for malignant neoplasm of cervix [facility] Start: 05-30-2024 End: 05-30-2024 Patient encounter procedure 05/30/2024 8:15 AM EDT Office Visit [facility] [address] [place] [address] Jeanna Mcqueen, OD [address] [place] [address] DM eye exam Ophthalmology Comment on above: DM eye exam Start: 05-09-2024 End: 05-09-2024 Patient encounter procedure 05/09/2024 2:45 PM EDT Office Visit [facility] [address] [place] [address] Jeanna Mcqueen, OD [address] [place] [address] DM eye exam Ophthalmology Comment on above: DM eye exam Start: 04-10-2024 End: 04-10-2024 Patient encounter procedure 04/10/2024 8:50 AM EDT Office Visit [facility] [address] [facility] [place] [id number] Marta Nieves PA-C [address] [facility] [place], [place] [id number] Diarrhea, unspecified type [R19.7]; LLQ pain [R10.32] [facility] Comment on above: Diarrhea, unspecified type [R19.7]; LLQ pain [R10.32] Start: 04-09-2024 Glaucoma screening Dilated Retinal Exam [facility] Start: 04-09-2024 Hepatitis C antibody, confirmatory test DILATED RETINAL EXAM [facility] Start: 04-04-2024 Hemoglobin A1c measurement HbA1C [facility] Start: 04-04-2024 Hemoglobin A1c/Hemoglobin.total in Blood HbA1C [facility] Start: 03-15-2024 3 comp foot exam completed DIABETIC FOOT EXAM [facility] Start: 03-15-2024 ANNUAL PCP TEAM CHRONIC DISEASE VISIT ANNUAL PCP TEAM CHRONIC DISEASE VISIT [facility] Start: 03-15-2024 Diabetic foot examination Diabetic Foot Exam [facility] Start: 02-14-2024 End: 05-15-2024 C reactive protein [Mass/volume] in Serum or Plasma [facility] Work Phone: Comment on above: Expected: 02/14/2024, Expires: Start: 02-14-2024 End: 05-15-2024 Comprehensive metabolic 2000 panel - Serum or Plasma [facility] Work Phone: Comment on above: Expected: 02/14/2024, Expires: Start: 02-14-2024 End: 05-15-2024 Nuclear Ab [Presence] in Serum by Immunoassay [facility] Work Phone: Comment on above: Expected: 02/14/2024, Expires: Start: 02-14-2024 End: 05-15-2024 Thyrotropin [Units/volume] in Serum or Plasma [facility] Work Phone: Comment on above: Expected: 02/14/2024, Expires: Start: 12-09-2023 Hemoglobin A1c/Hemoglobin.total in Blood HBA1C [facility] Start: 11-05-2023 End: 02-04-2024 Basic metabolic 2000 panel - Serum or Plasma BASIC METABOLIC PNL Lab Routine Controlled diabetes mellitus type 1 without complications (HCC) Expected: 11/05/2023 (Approximate), Expires: 02/04/2024 [facility] Work Phone: Comment on above: Expected: 11/05/2023 (Approximate), Expi res: 02/04/2024 Start: 11-01-2023 Behavioral Health Screening Behavioral Health Screening [facility] Start: 11-01-2023 Depression Assessment Depression Assessment [facility] Start: 10-14-2023 Hepatitis B screening URINE ALBUMIN:CREATININE RATIO [facility] Start: 10-14-2023 Hepatitis B surface antibody level LDL CHOLESTEROL [facility] Start: 07-28-2023 Hepatitis B screening URINE ALBUMIN:CREATININE RATIO [facility] Start: 07-28-2023 Hepatitis B surface antibody level LDL CHOLESTEROL [facility] Start: 07-02-2023 Covid-19 Vaccine () Covid-19 Vaccine () [facility] Start: 07-02-2023 Influenza vaccination [facility] Start: 04-14-2023 Hemoglobin A1c/Hemoglobin.total in Blood HBA1C [facility] Start: 04-01-2023 End: 06-01-2023 ALBUMIN/CREAT RATIO RND UR ALBUMIN/CREAT RATIO RND UR Lab Routine Controlled diabetes mellitus type 1 without complications (HCC) Expected: 04/01/2023, Expires: 06/01/2023 [facility] Work Phone: Comment on above: Expected: 04/01/2023, Expires: 3 Start: 04-01-2023 End: 06-01-2023 Comprehensive metabolic 2000 panel - Serum or Plasma COMP METABOLIC PANEL Lab Routine Controlled diabetes mellitus type 1 without complications (HCC) Expected: 04/01/2023, Expires: 06/01/2023 [facility] Work Phone: Comment on above: Expected: 04/01/2023, Expires: 3 Start: 04-01-2023 End: 06-01-2023 Hemoglobin A1c in Blood HGB A1C Lab Routine Controlled diabetes mellitus type 1 without complications (HCC) Expected: 04/01/2023, Expires: 06/01/2023 [facility] Work Phone: Comment on above: Expected: 04/01/2023, Expires: 3 Start: 04-01-2023 End: 06-01-2023 LIPID PANEL, NONFASTING LIPID PANEL, NONFASTING Lab Routine Controlled diabetes mellitus type 1 without complications (HCC) Expected: 04/01/2023, Expires: 06/01/2023 [facility] Work Phone: Comment on above: Expected: 04/01/2023, Expires: 3 Start: 03-15-2023 End: 05-15-2023 25-hydroxyvitamin D3 [Mass/volume] in Serum or Plasma VITAMIN D 25 HYDROXY Lab Routine RLS (restless legs syndrome) Numbness and tingling Expected: 03/15/2023, Expires: 05/15/2023 [facility] Work Phone: Comment on above: Expected: 03/15/2023, Expires: 3 Start: 03-15-2023 End: 05-15-2023 Cobalamin (Vitamin B12) [Mass/volume] in Serum or Plasma VITAMIN B12 BLOOD Lab Routine RLS (restless legs syndrome) Numbness and tingling Expected: 03/15/2023, Expires: 05/15/2023 [facility] Work Phone: Comment on above: Expected: 03/15/2023, Expires: 3 Start: 03-15-2023 End: 05-15-2023 Folate [Mass/volume] in Serum or Plasma FOLATE SERUM Lab Routine RLS (restless legs syndrome) Numbness and tingling Expected: 03/15/2023, Expires: 05/15/2023 [facility] Work Phone: Comment on above: Expected: 03/15/2023, Expires: 3 Start: 03-15-2023 End: 05-15-2023 Thyrotropin [Units/volume] in Serum or Plasma TSH BLD Lab Routine RLS (restless legs syndrome) Numbness and tingling Expected: 03/15/2023, Expires: 05/15/2023 [facility] Work Phone: Comment on above: Expected: 03/15/2023, Expires: 3 Start: 03-12-2023 Adult depression screening assessment DEPRESSION SCREENING [facility] Start: 03-12-2023 ANNUAL PCP TEAM CHRONIC DISEASE VISIT ANNUAL PCP TEAM CHRONIC DISEASE VISIT [facility] Start: 01-21-2023 Hepatitis C antibody, confirmatory test DILATED RETINAL EXAM [facility] Start: 11-01-2022 DEPRESSION ASSESSMENT DEPRESSION ASSESSMENT [facility] Start: 10-14-2022 End: 12-14-2022 25-hydroxyvitamin D3 [Mass/volume] in Serum or Plasma [facility] Work Phone: Comment on above: Expected: 10/14/2022, Expires: 3 Start: 10-14-2022 End: 12-14-2022 ALBUMIN/CREAT RATIO RND UR [facility] Work Phone: Comment on above: Expected: 10/14/2022, Expires: 3 Start: 10-14-2022 End: 12-14-2022 CBC W Auto Differential panel - Blood [facility] Work Phone: Comment on above: Expected: 10/14/2022, Expires: 3 Start: 10-14-2022 End: 12-14-2022 Cobalamin (Vitamin B12) [Mass/volume] in Serum or Plasma [facility] Work Phone: Comment on above: Expected: 10/14/2022, Expires: 3 Start: 10-14-2022 End: 12-14-2022 Comprehensive metabolic 2000 panel - Serum or Plasma [facility] Work Phone: Comment on above: Expected: 10/14/2022, Expires: 3 Start: 10-14-2022 End: 12-14-2022 Hemoglobin A1c in Blood [facility] Work Phone: Comment on above: Expected: 10/14/2022, Expires: 3 Start: 10-14-2022 End: 12-14-2022 LIPID PANEL, NONFASTING [facility] Work Phone: Comment on above: Expected: 10/14/2022, Expires: 3 Start: 10-14-2022 End: 12-14-2022 Nuclear Ab [Presence] in Serum by Immunoassay [facility] Work Phone: Comment on above: Expected: 10/14/2022, Expires: 3 Start: 10-14-2022 End: 12-14-2022 Rheumatoid factor [Units/volume] in Serum or Plasma [facility] Work Phone: Comment on above: Expected: 10/14/2022, Expires: 3 Start: 10-14-2022 End: 12-14-2022 Thyroglobulin Ab [Units/volume] in Serum or Plasma [facility] Work Phone: Comment on above: Expected: 10/14/2022, Expires: 3 Start: 10-14-2022 End: 12-14-2022 THYROID PEROXIDASE ANTIBODY BLOOD [facility] Work Phone: Comment on above: Expected: 10/14/2022, Expires: 3 Start: 10-14-2022 End: 12-14-2022 Thyrotropin [Units/volume] in Serum or Plasma [facility] Work Phone: Comment on above: Expected: 10/14/2022, Expires: 3 Start: 10-14-2022 End: 12-14-2022 Thyroxine (T4) free [Mass/volume] in Serum or Plasma [facility] Work Phone: Comment on above: Expected: 10/14/2022, Expires: 3 Start: 09-12-2022 Hemoglobin A1c/Hemoglobin.total in Blood HBA1C [facility] Start: 07-29-2022 3 comp foot exam completed DIABETIC FOOT EXAM [facility] Start: 07-29-2022 ANNUAL PCP TEAM CHRONIC DISEASE VISIT ANNUAL PCP TEAM CHRONIC DISEASE VISIT [facility] Start: 07-29-2022 Hepatitis B screening URINE ALBUMIN:CREATININE RATIO [facility] Start: 07-29-2022 Hepatitis B surface antibody level LDL CHOLESTEROL [facility] Start: 07-09-2022 End: 09-08-2022 ALBUMIN/CREAT RATIO RND UR ALBUMIN/CREAT RATIO RND UR Lab Routine Controlled diabetes mellitus type 1 without complications (HCC) Expected: 07/09/2022, Expires: 09/08/2022 [facility] Work Phone: Comment on above: Expected: 07/09/2022, Expires: 2 Start: 07-09-2022 End: 09-08-2022 Lipid 1996 panel - Serum or Plasma LIPID PANEL BASIC Lab Routine Controlled diabetes mellitus type 1 without complications (HCC) Expected: 07/09/2022, Expires: 09/08/2022 [facility] Work Phone: Comment on above: Expected: 07/09/2022, Expires: 2 Start: 07-02-2022 Influenza vaccination INFLUENZA (#1) [facility] Start: 01-26-2022 Hemoglobin A1c/Hemoglobin.total in Blood HBA1C [facility] Start: 11-01-2021 DEPRESSION ASSESSMENT DEPRESSION ASSESSMENT [facility] Start: 09-15-2017 Adult depression screening assessment DEPRESSION SCREENING [facility] Start: 09-24-2010 PNEUMOCOCCAL (2 - PCV) PNEUMOCOCCAL (2 - PCV) [facility] Start: 09-24-2010 Pneumococcal vaccination [facility] Start: 01-14-2008 HPV VACCINE (3 - 3-dose series) HPV VACCINE (3 - 3-dose series) [facility] Start: 2006 Anxiety Screening Anxiety Screening [facility] Start: 2006 Depression Screening Depression Screening [facility] Start: 1993 COVID-19 VACCINE (#1) COVID-19 VACCINE (#1) [facility] Start: 1993 COVID-19 VACCINE (1) COVID-19 VACCINE (1) [facility] Start: 01-13-1989 COVID-19 VACCINE (#1) COVID-19 VACCINE (#1) [facility] Bacteria identified in Urine by Culture URINE CULTURE Microbiology Routine Dysuria 06/07/2024 10:51 AM EDT [facility] Work Phone: Clostridioides difficile toxin genes [Presence] in Stool by LINDA with probe detection C. DIFFICILE PCR Lab Routine Diarrhea, unspecified type LLQ pain Ordered: 02/14/2024 [facility] Work Phone: Comment on above: Ordered: 02/14/2024 Clostridioides difficile toxin genes [Presence] in Stool by LINDA with probe detection CLOSTRIDIUM DIFFICILE TOXIN BY PCR Lab Routine Diarrhea, unspecified type Left lower quadrant abdominal pain Ordered: 05/15/2025 [facility] Comment on above: Ordered: 05/15/2025 End: 06-14-2026 CT Abdomen and Pelvis W contrast IV CT ABD/PEL W IVCON Radiology Routine Diarrhea, unspecified type Left lower quadrant abdominal pain 1 Occurrences starting 05/15/2025 until 06/14/2026 [facility] Work Phone: Comment on above: 1 Occurrences starting 05/15/2025 until 06/14/2026 ENTERIC BACTERIAL PANEL BY PCR ENTERIC BACTERIAL PANEL BY PCR Lab Routine Diarrhea, unspecified type LLQ pain Ordered: 02/14/2024 [facility] Work Phone: Comment on above: Ordered: 02/14/2024 ENTERIC BACTERIAL PANEL BY PCR ENTERIC BACTERIAL PANEL BY PCR Lab Routine Diarrhea, unspecified type Left lower quadrant abdominal pain Ordered: 05/15/2025 [facility] Comment on above: Ordered: 05/15/2025 FAT, FECAL QUAL FAT, FECAL QUAL Lab Routine Diarrhea, unspecified type LLQ pain Ordered: 02/14/2024 [facility] Work Phone: Comment on above: Ordered: 02/14/2024 FECAL LACTOFERRIN/LEUKOCYTES FECAL LACTOFERRIN/LEUKOCYTES Lab Routine Diarrhea, unspecified type LLQ pain Ordered: 02/14/2024 [facility] Work Phone: Comment on above: Ordered: 02/14/2024 Giardia lamblia+Cryptosporidiu m sp Ag [Presence] in Stool by Immunoassay CRYPTOSPORIDIUM AND GIARDIA ANTIGENS BY EIA Microbiology Routine Diarrhea, unspecified type LLQ pain Ordered: 02/14/2024 [facility] Work Phone: Comment on above: Ordered: 02/14/2024 Giardia lamblia+Cryptosporidiu m sp Ag [Presence] in Stool by Immunoassay CRYPTOSPORIDIUM AND GIARDIA ANTIGENS BY EIA Microbiology Routine Diarrhea, unspecified type Left lower quadrant abdominal pain Ordered: 05/15/2025 [facility] Comment on above: Ordered: 05/15/2025 Hemoglobin A1c/Hemoglobin.total in Blood HEMOGLOBIN A1C (POC) Lab Routine Type 1 diabetes mellitus (HCC) 1 Occurrences starting 01/31/2024 [facility] Work Phone: Comment on above: 1 Occurrences starting 01/31/2024 Insertion intrauteri ne device iud INSERT INTRAUTERINE DEVICE Procedures Routine Encounter for IUD insertion Ordered: 12/29/2022 [facility] Work Phone: Comment on above: Ordered: 12/29/2022 OCT ANTERIOR SEGMENT OPTOVUE OU (BOTH EYES) OCT ANTERIOR SEGMENT OPTOVUE OU (BOTH EYES) OPHT Imaging Routine Refractive error 01/21/2022 1:11 PM EDT [facility] Work Phone: Removal intrauterine device iud REMOVE INTRAUTERINE DEVICE Procedures Routine Encounter for IUD removal Ordered: 01/18/2025 [facility] Work Phone: Comment on above: Ordered: 01/18/2025 [facility] Immunizations Immunization Date Immunization Notes Care Provider [facility] 08-25-2022 influenza virus vacc ine, unspecified formulation Clover Bailon RN [facility] 08-25-2022 influenza, injectabl e, quadrivalent, contains preservative Clover Bailon RN [facility] Work Phone: 07-31-2021 influenza virus vacc ine, unspecified formulation Norma Rock MD Work Phone: [facility] 07-31-2021 influenza, injectabl e, quadrivalent, contains preservative Norma Rock MD Work Phone: [facility] Work Phone: 07-29-2021 tetanus toxoid, redu arjun diphtheria toxoid, and acellular pertussis vaccine, adsorbed Norma Rock MD Work Phone: [facility] 08-14-2020 influenza, injectabl e, quadrivalent, contains preservative Norma Rock MD Work Phone: [facility] Work Phone: 08-09-2019 influenza, seasonal, injectable Norma Rock MD Work Phone: [facility] 08-24-2018 influenza virus vacc ine, unspecified formulation Norma Rock MD Work Phone: [facility] 08-24-2018 influenza, injectabl e, quadrivalent, contains preservative Norma Rock MD Work Phone: [facility] 08-06-2017 influenza virus vacc ine, unspecified formulation Norma Rock MD Work Phone: [facility] 08-04-2016 influenza virus vacc ine, unspecified formulation Norma Rock MD Work Phone: [facility] 08-14-2015 influenza virus vacc ine, unspecified formulation Norma Rock MD Work Phone: [facility] 08-09-2014 influenza virus vacc ine, whole virus Norma Rock MD Work Phone: [facility] 08-15-2011 influenza virus vacc ine, unspecified formulation Norma Rock MD Work Phone: [facility] Work Phone: 12-05-2009 tetanus toxoid, redu arjun diphtheria toxoid, and acellular pertussis vaccine, adsorbed Norma Rock MD Work Phone: [facility] Work Phone: 09-24-2009 pneumococcal polysaccharide vaccine, 23 valent Norma Rock MD Work Phone: [facility] Work Phone: 02-04-2009 tuberculin skin test ; purified protein derivative solution, intradermal Bertrand Wallace MD Work Phone: [facility] 10-03-2008 influenza virus vacc ine, unspecified formulation Norma Rock MD Work Phone: [facility] Work Phone: 02-28-2008 tuberculin skin test ; purified protein derivative solution, intradermal Bertrand Wallace MD Work Phone: [facility] 02-14-2008 Meningococcal, MCV4, unspecified conjugate formulation(groups A, C, Y and W-135) Norma Rock MD Work Phone: [facility] Work Phone: 02-14-2008 tuberculin skin test ; purified protein derivative solution, intradermal Bertrand Wallace MD Work Phone: [facility] 09-15-2007 human papilloma viru s vaccine, quadrivalent Norma Rock MD Work Phone: [facility] Work Phone: 09-15-2007 influenza virus vacc ine, unspecified formulation Norma Rock MD Work Phone: [facility] Work Phone: 07-25-2007 human papilloma viru s vaccine, quadrivalent Norma Rock MD Work Phone: [facility] Work Phone: 02-11-2007 human papilloma viru s vaccine, quadrivalent Norma Rock MD Work Phone: [facility] Work Phone: 11-01-2006 human papilloma viru s vaccine, quadrivalent Marielos Herrera 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.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 Work Phone: [facility] 09-02-2006 influenza virus vacc ine, unspecified formulation Norma Rock MD Work Phone: [facility] 09-01-2005 influenza virus vacc ine, unspecified formulation Norma Rock MD Work Phone: [facility] Work Phone: 09-12-2003 influenza virus vacc ine, unspecified formulation Norma Rock MD Work Phone: [facility] Work Phone: 10-02-2002 influenza virus vacc ine, unspecified formulation Norma Rock MD Work Phone: [facility] Work Phone: 09-08-2001 influenza virus vacc ine, unspecified formulation Norma Rock MD Work Phone: [facility] Work Phone: 06-16-2001 hepatitis B vaccine, pediatric or pediatric/adolescent dosage Norma Rock MD Work Phone: [facility] Work Phone: 06-09-2000 measles, mumps and rubella virus vaccine Norma Rock MD Work Phone: [facility] Work Phone: 04-17-2000 tetanus and diphther ia toxoids, adsorbed, preservative free, for adult use (2 Lf of tetanus toxoid and 2 Lf of diphtheria toxoid) Norma Rock MD Work Phone: [facility] Work Phone: 04-05-2000 hepatitis B vaccine, pediatric or pediatric/adolescent dosage Norma Rock MD Work Phone: [facility] Work Phone: 06-13-1999 hepatitis B vaccine, pediatric or pediatric/adolescent dosage Norma Rock MD Work Phone: [facility] Work Phone: 05-02-1994 diphtheria, tetanus toxoids and pertussis vaccine Norma Rock MD Work Phone: [facility] Work Phone: 05-02-1994 trivalent poliovirus vaccine, live, oral Norma Rock MD Work Phone: [facility] Work Phone: 05-02-1994 tuberculin skin test ; purified protein derivative solution, intradermal Bertrand Wallace MD Work Phone: [facility] 08-31-1993 tetanus and diphther ia toxoids, adsorbed, preservative free, for adult use (2 Lf of tetanus toxoid and 2 Lf of diphtheria toxoid) Norma Rock MD Work Phone: [facility] Work Phone: 07-22-1992 tuberculin skin test ; purified protein derivative solution, intradermal Bertrand Wallace MD Work Phone: [facility] 05-14-1992 diphtheria, tetanus toxoids and pertussis vaccine Norma Rock MD Work Phone: [facility] Work Phone: 05-14-1992 trivalent poliovirus vaccine, live, oral Norma Rock MD Work Phone: [facility] Work Phone: 12-15-1989 diphtheria, tetanus toxoids and pertussis vaccine Norma Rock MD Work Phone: [facility] Work Phone: 12-15-1989 measles, mumps and rubella virus vaccine Norma Rock MD Work Phone: [facility] Work Phone: 03-09-1989 diphtheria, tetanus toxoids and pertussis vaccine Norma Rock MD Work Phone: [facility] Work Phone: 03-09-1989 trivalent poliovirus vaccine, live, oral Norma Rock MD Work Phone: [facility] Work Phone: 1988 diphtheria, tetanus toxoids and pertussis vaccine Norma Rock MD Work Phone: [facility] Work Phone: 1988 trivalent poliovirus vaccine, live, oral Norma Rock MD Work Phone: [facility] Work Phone: Payers Date Payer Category Payer Unknown [id number] 2025 Self-pay 2021 Private Health Insurance P AET NA P STAFF/NON STAFF / EHP [facility] [id number] 2021-Present [address] [place] [address] EPO [id number] 2021 Private Health Insurance [id number] 2019 Unknown [employer] P [employer]SP VISION [id number] 2019-Present [address] [place] [id number] Indemnity [id number] 2017 Unknown [id number] Unknown [id number] Unknown [id number] Unknown [id number] Unknown [id number] Unknown [id number] Unknown [id number] Unknown [id number] Unknown [id number] Unknown [id number] Social History Date Type Detail Facility Start: 11-19-2022 End: 06-07-2025 Tobacco smoking status [facility] Never smoked tobacco [facility] Work Phone: Start: 01-21-2022 End: 05-15-2025 Alcohol intake Current drinker of alcohol (finding) [facility] Start: 06-02-2018 End: 08-01-2020 History SDOH Alcohol Frequency 3 [facility] Start: 06-02-2018 End: 08-01-2020 History SDOH Alcohol Std Drinks 1 [facility] Start: 08-01-2020 History SDOH Alcohol Comment occasional [facility] Start: 06-02-2018 History SDOH Social Connections Phone 5 [facility] Start: 06-02-2018 History SDOH Social Connections Get Together 2 [facility] Start: 06-02-2018 History SDOH Physica l Activity DPW 4 [facility] Start: 06-02-2018 History SDOH Physica l Activity MPS 6 [facility] Start: 06-02-2018 Education 21 [facility] Start: 1990 Sex Assigned At Not on file [facility] Start: 01-13-2021 End: 05-22-2022 Exposure to SARS-CoV-2 (event) Not sure [facility] Start: 11-19-2022 Tobacco use and exposure Smoke less tobacco non-user [facility] Start: 06-02-2018 End: 04-09-2023 History of Social function [facility] Start: 06-02-2018 End: 04-09-2023 Social connection and isolation panel [facility] Start: 10-02-2012 Attends [employer] Not on file [facility] Are you now , , , , never or living with a partner? [facility] How often to you hav e a drink containing alcohol? 2-4 times a month [facility] How many standard dr inks containing alcohol do you have on a typical day? 1 or 2 [facility] How often do you hav e 6 or more drinks on 1 occasion? Never [facility] Do you feel stress - tense, restless, nervous, or anxious, or unable to sleep at night because your mind is troubled all the time - these days [OSQ] To some extent [facility] The food that (I/we) bought just didn't last, and (I/we) didn't have money to get more. Never true [facility] Has the [employer], or [employer] threatened to shut off services in your home in past 12Mo No [facility] How often to you hav e a drink containing alcohol? Monthly or less [facility] Do you feel stress - tense, restless, nervous, or anxious, or unable to sleep at night because your mind is troubled all the time - these days [OSQ] Only a little [facility] Start: 02-10-2019 Alcohol Alcohol [place] Start: 02-10-2019 Lives Lives [place] Start: 1990 Sex Assigned At Female W [facility] Medical Equipment Procedure Code Equipment Code Equipment Original Text Equipment Identifier Dates [id number], [id number], [id number], [id number], [id number], [id number], [id number] Start: 11-05-2017 End: 06-11-2025 Comment on above: Test blood sugar(s) 5 times daily. Dx: Type 1 DM - Controlled E10.9 Insulin: Yes Uses 8 a day Use one needle per d ose. 8 insulin injections a day Test blood sugar 5 t imes a day Goals Date Patient Goal Desired Activity /State Personal health goal Comment on above: Formatting of this n ote might be different from the original. Instructed pt to have A1C drawn next week, agreed Formatting of this n ote might be different from the original. 04/12/18 Comment on above: Formatting of this n ote might be different from the original. Instructed pt to have A1C drawn next week, agreed Comment on above: Formatting of this n ote might be different from the original. 04/12/18 Functional Status Date Assessment Result Facility 05-31-2015 Are you deaf, or do you have serious difficulty hearing No 05/31/2015 1:46 PM EDT Kelsi Bethea Ma No [facility] 05-31-2015 Are you blind, or do you have serious difficulty seeing, even when wearing glasses No 05/31/2015 1:46 PM EDT Kelsi Bethea Ma No [facility] 05-31-2015 Do you have serious difficulty walking or climbing stairs No 05/31/2015 1:46 PM EDT Kelsi Bethea Ma No [facility] 05-31-2015 Do you have difficul ty dressing or bathing No 05/31/2015 1:46 PM EDT Kelsi Bethea Ma No [facility] 05-31-2015 Because of a physica l, mental, or emotional condition, do you have difficulty doing errands alone such as visiting a physician's office or shopping No 05/31/2015 1:46 PM EDT Kelsi Bethea Ma No [facility] Mental Status Date Assessment Result Facility 06-12-2025 Cognitive function Voice/Name [facility] Work Phone: 05-31-2015 Because of a physica l, mental, or emotional condition, do you have serious difficulty concentrating, remembering, or making decisions No 05/31/2015 1:46 PM EDKelsi Justin Ma No [facility] Clinical Notes 02-15-2018 to 07-06-2025 Telephone Encounter - Gloria Godinez MA - 07/06/2025 5:19 PM EDTTelephone Encounter - Gloria Godinez MA - 07/06/2025 5:19 PM EDTTelephone Encounter - Marielos Herrera APRN.CNP - 07/06/2025 5:16 PM EDT Note Date & Type Note Facility 07-06-2025 Telephone encounter Note Form atting of this note might be different from the original. Order faxed to below fax number [facility] 07-06-2025 Miscellaneous Notes Formattin g of this note might be different from the original. Order faxed to below fax number Order written. Please fax. [facility] states they need order for glucometer. Fax to documented in this encounter [facility] 07-06-2025 Telephone encounter Note Form atting of this note might be different from the original. Order written. Please fax. [facility] 07-06-2025 Telephone encounter Note Form atting of this note might be different from the original. [facility] states they need order for glucometer. Fax to [facility] 06-20-2025 Telephone encounter Note Form atting of this note might be different from the original. Referral and all information has been faxed to Dr Lema's office as requested. Maxi Barton LPN [facility] 06-20-2025 Miscellaneous Notes Formattin g of this note might be different from the original. Referral and all information has been faxed to Dr Lema's office as requested. Maxi Barton LPN Consult placed. Please send to Dr. Torey Rothman PA-C Please see pt's message from today. Maxi Barton LPN Please see pt's message. Maxi Barton LPN documented in this encounter [facility] 06-20-2025 Telephone encounter Note Form atting of this note might be different from the original. Consult placed. Please send to Dr. Torey Rothman PA-C [facility] 06-20-2025 Telephone encounter Note Form atting of this note might be different from the original. Please see pt's message from today. Maxi Barton LPN [facility] 06-12-[address] [facility] 06-12-[address] [facility] 06-12-[address] [facility] 06-12-[address] [facility] 06-12-2025 Note [facility] Medical Records Department [address] [place] [address] History Physical Exam 06/12/25 0910 MR#: [id number] Acct: [id number] Name: KRISTOPHER WALSH Rep #: [id number] : 1990 34 From: Vinay Ochoa MD PCP: Dr. Bertrand Wallace MD Status:DEP [facility] [place] Location: EN HPI - General General Date of Admission: 06/12/25 Date of Service: 06/12/25 Chief Complaint: diarrhea HPI Narrative KRISTOPHER WALSH, is a 34 F who presents for colonoscopy The patient is a 34-year-old female who is being seen today for colonoscopy to further evaluate ongoing issues with diarrhea. She has undergone numerous stool studies without abnormality. She also underwent a recent CT scan that was normal as well. [facility] Medical History (Updated 06/12/25 @ 08:[address] Kevin Vazquez MD) Insulin dependent diabetes mellitus Loss of consciousness Dietary restriction Non-smoker Celiac disease Home Medications ???Medication ???Instructions ???Recorded ???Last Taken ???Type insulin lispro 100 unit/mL 1 sliding scale dose SQ DAILY 01/30 12/20 Unknown History subcutaneous solution (Humalog U-100 Insulin) Allergy/AdvReac Type Severity Reaction Status Date / Time gluten Allergy Other Verified 06/07/25 12:56 adhesive tape AdvReac Rash Verified 06/07/25 12:56 Family History Mother Osteoporosis Skin cancer Thyroid disorder Father Cancer throat Surgical History (Updated 06/12/25 @ 08:[address] Kevin Vazquez MD) H/O esophagogastroduodenoscopy Encounter for Essure implantation Social History Smoking Status: Never smoker Vital Signs Vital Signs Vital Signs: 06/12/25 08:16 06/12/25 08:16 06/12/25 08:59 Temperature 98.8 F 98.8 F Temperature Source Temporal Pulse Rate 67 67 Respiratory Rate 16 16 Respiratory Pattern Normal Blood Pressure Source Monitor Blood Pressure Position Sitting Blood Pressure Location Left Arm Pulse Ox 100 100 Oxygen Delivery Method Room Air Room Air Weight Weight: 125 lb 10.616 oz Body Mass Index (BMI) 20.9 Physical Exam Const alert, oriented x3 and no apparent distress Assessment Plan Assessment/Plan (1) Encounter for screening for malignant neoplasm of colon: (2) Diarrhea: 06/12/25 1509 Cosigner Signature (if applicable): CC: Dr. Vinay Ochoa MD; Dr. Bertrand Wallace MD Signed [facility] 05-28-2025 Telephone encounter Note Please see pt's message. Maxi Barton LPN [facility] 05-22-2025 Evaluation note Diagnosis Onset Date Resolution Encounter for screening for malignant neoplasm of colon acute May 22, 2025 2:56pm [facility] Work Phone: 1(491) 136-757807-22-2025 Evaluation note* Diagnosis Onset Date Resolution Status Admit Date Encounter for screening for malignant neoplasm of colon acute May 22, 2025 2:56pm Diarrhea acute June 12, 2 025 7:50am Encounter for screening for malignant neoplasm of colon acute Augu 2024 7:50am [facility] Work Phone: 1(148) 637-564507-22-2025 Telephone encounter Note* Telephone Encounter - Maxi Barton LPN - 05/22/2025 9:05 AM EDT Spoke with pt and advised there is no way to get outside results into her [facility] but the surgeon shouldhave access to all results and imaging. Pt verbalizes understanding and will try to sign up for [facility]'s portal. Maxi Barton LPN [facility]07-22-2025 Miscellaneous Notes* Telephone Encounter - Maxi Barton LPN - 05/22/2025 9:05 AM EDT Spoke with pt and advised there is no way to get outside results into her [facility] but the surgeon shouldhave access to all results and imaging. Pt verbalizes understanding and will try to sign up for [facility]'s portal. Maxi Barton LPN * Telephone Encounter - Sarah Bradshaw LPN - 05/22/2025 8:17 AM EDT Pt notified of results and provider message. Pt is requesting results be sent (released) in . Sarah Bradshaw LPN * Telephone Encounter - Maya Rothman PA-C - 05/22/2025 7:12 AM EDT Let patient know that she has evidence of R sided ovarian cyst rupture but otherwise her CT scan isnormal. Wouldn't be the cause of her diarrhea. Maya Rothman PA-C * Telephone Encounter - Maxi Barton LPN - 05/22/2025 6:49 AM EDT Received pt's lab and CT results done at [facility] ordered by Maya. Results on Maya's desk for review. Maxi Barton LPN documented in this encounter[facility] Telephone encounter Note * Telephone Encounter - Sarah Bradshaw LPN - 05/22/2025 8:17 AM EDT Pt notified of results and provider message. Pt is requesting results be sent (released) in . Sarah Bradshaw LPN [facility]07-22-2025 Telephone encounter Note* Telephone Encounter - Maya Rothman PA-C - 05/22/2025 7:12 AM EDT Let patient know that she has evidence of R sided ovarian cyst rupture but otherwise her CT scan isnormal. Wouldn't be the cause of her diarrhea. Maya Rothman PA-C [facility]07-22-2025 Telephone encounter Note* Telephone Encounter - Maxi Barton LPN - 05/22/2025 6:49 AM EDT Received pt's lab and CT results done at [facility] ordered by Maya. Results on Maya's desk for review. Maxi Barton LPN [facility]07-21-2025 Radiology Diagnostic study note [facility] Imaging Services [address] [place] [address] [id number] Abdomen/Pelvis WITH Contrast MR#: [id number] Acct: [id number] Name: KRISTOPHER WALSH Rep #: [id number] : 1990 F 34 From: Anca Wilson MD PCP: Dr. Bertrand Wallace MD Status: VERONICA CUELLAR Study:Abdomen/Pelvis WITH Contrast Date of Ex am: 05/21/25 Exam# [id number] Ordering Dr: Maya Rothman PROCEDURE: ABDOMEN/PELVIS WITH CONTRAST 05/21/2025 REASON FOR EXAM: LLQ PAIN TECHNIQUE: ABDOMEN/PELVIS WITH CONTRAST Coronal and Sagittal reconstruction series were provided. CONTRAST: Isovue 300 VOLUME: 99 mL One or more dose reduction techniques were used (e.g., Automated exposure control, adjustment of the mA and/or kV according to patient size, use of iterative reconstruction technique. RADIATION DOSE SUMMARY: CTDlvol: 21 mGy DLP: 380 mGycm COMPARISON: No FINDINGS: Clear lung bases. Normal heart size. Unremarkable liver, gallbladder, pancreas, spleen, adrenal glands, kidneys. No hydronephrosis or ureteral stone. Normal bladder. Normal uterus and left ovary. Status post tubal ligation. Involuting right ovarian cyst. Small pelvic fluid. No retroperitoneal or pelvic adenopathy. No free air. Nondistended bowel. Normal appendix. No acutelarge bowel findings. No acute abdominal wall findings. CT/Abdomen/Pelvis WITH Contrast IMPRESSION: Recent right ovarian cyst rupture with small pelvic fluid, this can be a cause of pain. Reading Location: [place] [address] CC: Dr. Bertrand Wallace MD; KAYLEEN Kinsey [employer] Specialist: Signed [facility]07-15-2025 NoteHNO ID: [id number] Author: MAYA ROTHMAN PA-C Service: ? Author Type: Physician Supervisor [employer] Type: Progress Notes Filed: 05/15/2025 08:43 Note Text: Chief Complaint Patient presents with: Diarrhea HPI Kristopher Walsh is a 34 year old female who presents here today for Above Complaints.. Diarrhea: - Recurrent episodes of watery diarrhea, x1 month. - Similar episode last year, resolved without intervention. - Denies hematochezia; notes occasional mucoid stools. - Associated with intermittent abdominal pain, described as constricting and squeezing in the mid-abdomen. - Pain is sometimes palpable externally, described as bubbly and like when your baby's kicking. - Denies reflux. - Denies recent travel, dietary changes, or new medications. - Adheres to a strict gluten-free diet; avoids eating out. - Symptoms are random, occurring 5-12 hours postprandial, sometimes waking her at night. - Denies nausea; previously experienced nausea with Imodium use. - Symptoms interfere with daily life; avoids certain foods and alcohol. - No family history of ulcerative colitis or Crohn's disease; grandfather had IBS, father had polyps with normal colonoscopy. - Last year's stool studies during similar symptoms were negative. - Works from home in [employer]. Past medical history, appointments, medications, allergies reviewed. Previous Medical History PAST MEDICAL HISTORY Diagnosis Date CAFE' AU LAIT/////DYSCHROMIA UNSPECIFIED 08/12/2007 Celiac disease (HCC) Diabetes mellitus without mention of complication Diabetes mellitus Duodenitis without mention of hemorrhage 04/13/2012 Dysmenorrhea resolved Excessive or frequent menstruation Heavy periods resolved Irregular menstrual cycle Irregular periods resolved Myopia 06/07/2015 Myopia 09/17/2016 Other specified anemias Somatic dysfunction of lumbar region 02/15/2018 Somatic dysfunction of sacroiliac joint 02/15/2018 Previous Surgical History PAST SURGICAL HISTORY Procedure Laterality Date ESSURE 12/30/12 LASIK Bilateral 02/19/[address] ROCK Family History FAMILY HISTORY Problem Relation Age of Onset Cancer Mother Skin, squamous cell Cancer Father throat-squamous cell Heart Maternal Grandfather coronary artery disease Cataract Maternal Grandfather Heart Paternal Grandfather AL Patient Allergies ALLERGIES Allergen Reactions Gluten Other: See Comments Celiac disease Adhesive Rash, Itching Current Medications Current Outpatient Medications on File Prior to Visit Medication Sig blood sugar diagnostic (CONTOUR TEST STRIPS) test strip Use with blood glucose test three times a day. Insulin Dep? Yes Lancets Test blood sugar(s) 3 times times daily. Dx: Type 1 DM - Controlled E10.9 Insulin: Yes insulin lispro (HUMALOG U-100 INSULIN) 100 unit/mL injection USE DIRECTED VIA INSULIN PUMP-MAX IS 60 UNITS DAILY insulin pump cart,auto,BT,G6/7 (OMNIPOD 5 G6-G7 PODS, GEN 5,) crtg Inject 1 Each subcutaneously every 72 hours. glucagon (BAQSIMI) 3 mg/actuation nasal spray Use 1 [place] in the nose as needed for low blood sugar. May repeat after 15 minutes using a new device if there is no response. insulin pump cart,automated,BT (OMNIPOD 5 G6 PODS, GEN 5,) crtg Inject 1 Each subcutaneously every 72 hours. insulin pump cart,auto,BT,G6/7 (OMNIPOD 5 G6-G7 PODS, GEN 5,) crtg Inject 1 Each subcutaneously every 72 hours. ondansetron orally disintegrating (ZOFRAN ODT) 4 mg disintegrating tablet Take 1 tablet by mouth every 6 hours as needed for nausea/vomiting. insulin lispro (HUMALOG KWIKPEN INSULIN) 100 unit/mL Use as directed. Max dosage up to 50 units per day. Insulin [place], Disposable, (BD ULTRAFINE III MINI PEN) 31 gauge x 3/16 Uses 8 a day insulin pump cart,auto,BT-cntr (OMNIPOD 5 G6 INTRO KIT, GEN 5,) crtg Inject 1 Each subcutaneously once daily. MULTIVITAMIN ORAL Take by mouth. insulin glargine (LANTUS SOLOSTAR U-100 INSULIN) 100 unit/mL (3 mL) Inject 50 Units subcutaneously once daily. In case of pump failure. levonorgestrel (MIRENA) 21 mcg/24 hours (8 yrs) 52 mg IUD 1 Each by INTRAUTERINE route as directed. (Patient not taking: Reported on 05/15/2025) omega-3 fatty acids(FISH OIL 500 MG CAP) Take one(1) capsule daily. (Patient not taking: Reported on 05/15/2025) No current facility-administered medications on file prior to visit. Social History Social History Tobacco Use Smoking status: Never Smokeless tobacco: Never Vaping Use Vaping status: Never Used Substance Use Topics Alcohol use: Yes Comment: occasional Drug use: No Review of Symptoms REVIEW OF SYSTEMS Constitutional: (+) fatigue Gastrointestinal: (+) watery diarrhea, (+) mucous stool, (+) abdominal pain, (+) abdominal cramping, (-) nausea, (-) heartburn, (-) hematochezia SEE HPI EXAM: BP 110/72 (BP Site: Left Arm, BP Position: Sitting, BP Cuff Size: Regular Adult) (more content not included)...[facility]07-15-2025 History of Present illness Narrative* Maya Rothman PA-C - 05/15/2025 7:49 AM EDT Chief Complaint Patient presents with: Diarrhea HPI Kristopher Walsh is a 34 year old female who presents here today for Above Complaints.. Diarrhea: - Recurrent episodes of watery diarrhea, x1 month. - Similar episode last year, resolved without intervention. - Denies hematochezia; notes occasional mucoid stools. - Associated with intermittent abdominal pain, described as constricting and squeezing in the mid-abdomen. - Pain is sometimes palpable externally, described as bubbly and like when your baby's kicking. - Denies reflux. - Denies recent travel, dietary changes, or new medications. - Adheres to a strict gluten-free diet; avoids eating out. - Symptoms are random, occurring 5-12 hours postprandial, sometimes waking her at night. - Denies nausea; previously experienced nausea with Imodium use. - Symptoms interfere with daily life; avoids certain foods and alcohol. - No family history of ulcerative colitis or Crohn's disease; grandfather had IBS, father had polyps with normal colonoscopy. - Last year's stool studies during similar symptoms were negative. - Works from home in [employer]. Past medical history, appointments, medications, allergies reviewed. Previous Medical History PAST MEDICAL HISTORY Diagnosis Date CAFE' AU LAIT/////DYSCHROMIA UNSPECIFIED 08/12/2007 Celiac disease (HCC) Diabetes mellitus without mention of complication Diabetes mellitus Duodenitis without mention of hemorrhage 04/13/2012 Dysmenorrhea resolved Excessive or frequent menstruation Heavy periods resolved Irregular menstrual cycle Irregular periods resolved Myopia 06/07/2015 Myopia 09/17/2016 Other specified anemias Somatic dysfunction of lumbar region 02/15/2018 Somatic dysfunction of sacroiliac joint 02/15/2018 Previous Surgical History PAST SURGICAL HISTORY Procedure Laterality Date ESSURE 12/30/12 LASIK Bilateral 02/19/[address] ROCK Family History FAMILY HISTORY Problem Relation Age of Onset Cancer Mother Skin, squamous cell Cancer Father throat-squamous cell Heart Maternal Grandfather coronary artery disease Cataract Maternal Grandfather Heart Paternal Grandfather AL Patient Allergies ALLERGIES Allergen Reactions Gluten Other: See Comments Celiac disease Adhesive Rash, Itching Current Medications Current Outpatient Medications on File Prior to Visit Medication Sig blood sugar diagnostic (CONTOUR TEST STRIPS) test strip Use with blood glucose test three times a day. Insulin Dep? Yes Lancets Test blood sugar(s) 3 times times daily. Dx: Type 1 DM - Controlled E10.9 Insulin: Yes insulin lispro (HUMALOG U-100 INSULIN) 100 unit/mL injection USE DIRECTED VIA INSULIN PUMP-MAX IS 60 UNITS DAILY insulin pump cart,auto,BT,G6/7 (OMNIPOD 5 G6-G7 PODS, GEN 5,) crtg Inject 1 Each subcutaneously every 72 hours. glucagon (BAQSIMI) 3 mg/actuation nasal spray Use 1 [place] in the nose as needed for low blood sugar. May repeat after 15 minutes using a new device if there is no response. insulin pump cart,automated,BT (OMNIPOD 5 G6 PODS, GEN 5,) crtg Inject 1 Each subcutaneously every 72 hours. insulin pump cart,auto,BT,G6/7 (OMNIPOD 5 G6-G7 PODS, GEN 5,) crtg Inject 1 Each subcutaneously every 72 hours. ondansetron orally disintegrating (ZOFRAN ODT) 4 mg disintegrating tablet Take 1 tablet by mouth every 6 hours as needed for nausea/vomiting. insulin lispro (HUMALOG KWIKPEN INSULIN) 100 unit/mL Use as directed. Max dosage up to 50 units perday. Insulin [place], Disposable, (BD ULTRAFINE III MINI PEN) 31 gauge x 3/16 Uses 8 a day insulin pump cart,auto,BT-cntr (OMNIPOD 5 G6 INTRO KIT, GEN 5,) crtg Inject 1 Each subcutaneously once daily. MULTIVITAMIN ORAL Take by mouth. insulin glargine (LANTUS SOLOSTAR U-100 INSULIN) 100 unit/mL (3 mL) Inject 50 Units subcutaneously once daily. In case of pump failure. levonorgestrel (MIRENA) 21 mcg/24 hours (8 yrs) 52 mg IUD 1 Each by INTRAUTERINE route as directed.(Patient not taking: Reported on 05/15/2025) omega-3 fatty acids(FISH OIL 500 MG CAP) Take one(1) capsule daily. (Patient not taking: Reported on 05/15/2025) No current facility-administered medications on file prior to visit. Social History Social History Tobacco Use Smoking status: Never Smokeless tobacco: Never Vaping Use Vaping status: Never Used Substance Use Topics Alcohol use: Yes Comment: occasional Drug use: No Review of Symptoms REVIEW OF SYSTEMS Constitutional: (+) fatigue Gastrointestinal: (+) watery diarrhea, (+) mucous stool, (+) abdominal pain, (+) abdominal cramping, (-) nausea, (-) heartburn, (-) hematochezia SEE HPI EXAM: BP 110/72 (BP Site: Left Arm, BP Position: Sitting, BP Cuff Size: Regular Adult) Pulse 60 Temp 36.8 C (98.2 F) Resp 16 Wt 58.5 kg (129 lb) LMP 05/07/2025 (Exact Date) SpO2 98% BMI 21.47kg/m General Appearance: Well appearing, alert, in no acute distress, well-hydrated, well nourished.. Lungs: Lungs clear to auscultation. No wheezing, rhonchi, rales.. Heart: RRR without murmur, gallop, or rubs. No ectopy. Abdomen: Normal abdominal exam, Abdomen soft, non-tender. Bowel sounds normal. No masses, organomegaly. Health Maintenance List Pneumococcal Vaccine(2 of 2 - PCV) due on 09/24/2010 Diabetic Foot Exam due on 03/15/2024 Cervical Cancer Screening due on 06/05/2024 Covid-19 Vaccine( season) Never done HbA1C due on 08/01/2024 Urine Albumin:Creatinine Ratio due on 10/04/2024 LDL Cholesterol due on 10/04/2024 Influenza Vaccine(1) due on 07/02/2025 Depression Screening due on 07/18/2025 Anxiety Screening due on 07/18/2025 Dilated Retinal Exam due on 05/10/2026 Annual PCP Team Chronic Disease Visit due on 05/15/2026 DTaP,Tdap,Td Vaccine(8 - Td or Tdap) due on 07/29/2031 Hepatitis C Screening Completed HIV Screening Completed Data reviewed Latest Ref Rng 02/14/2024 02/15/2024 WBC 3.70 - 11.00 k/uL 7.35 RBC 3.90 - 5.20 m/uL 4.26 Hemoglobin 11.5 - 15.5 g/dL 13.5 Hematocrit 36.0 - 46.0 % 40.7 MCV 80.0 - 100.0 fL 95.5 MCH 26.0 - 34.0 pg 31.7 MCHC 30.5 - 36.0 g/dL 33.2 RDW-CV 11.5 - 15.0 % 12.1 Platelet Count 150 - 400 k/uL 289 MPV 9.0 - 12.7 fL 11.1 Neut% % 53.1 Abs Neut (ANC) 1.45 - 7.50 k/uL 3.91 Lymph% % 34.7 Abs Lymph 1.00 - 4.00 k/uL 2.55 [facility]% % 9.7 Abs [facility] <0.87 k/uL 0.71 Eosin% % 1.4 Abs Eosin <0.46 k/uL 0.10 Baso% % 0.8 Abs Baso <0.11 k/uL 0.06 Immature Gran % % 0.3 IMMATURE GRANS (ABS) <0.10 k/uL <0.03 NRBC /100 WBC 0.0 Absolute nRBC <0.01 k/uL <0.01 DTYPE Auto Protein, Total 6.3 - 8.0 g/dL 6.9 Albumin 3.9 - 4.9 g/dL 4.5 Calcium 8.5 - 10.2 mg/dL 8.9 Bilirubin, Total 0.2 - 1.3 mg/dL 0.2 Alkaline Phosphatase 34 - 123 U/L 63 AST 13 - 35 U/L 23 ALT 7 - 38 U/L 27 Glucose 74 - 99 mg/dL 70 (L) BUN 7 - 21 mg/dL 19 Creatinine 0.58 - 0.96 mg/dL 0.76 Sodium 136 - 144 mmol/L 141 Potassium 3.7 - 5.1 mmol/L 3.9 Chloride 97 - 105 mmol/L 104 CO2 22 - 30 mmol/L 25 Anion Gap 9 - 18 mmol/L 12 eGFR >=60 mL/min/1.73m 105 Shigella/Enteroinvasive E. coli (EIEC) DNA Not Detected Not detected Campylobacter jejuni/coli DNA Not Detected Not detected Shiga-like toxin producing E. coli (STEC) DNA Not Detected Not detected Salmonella species DNA Not Detected Not detected Cryptosporidium Antigen by EIA Negative Negative for Cryptosporidium by EIA. Giardia Antigen by EIA Negative Negative for Giardia lamblia by EIA. Fat,Fecal-Neutral Normal Normal Fat, Fecal - Split Normal Normal C. difficile PCR Negative for C. difficile toxin by PCR Negative for C. difficile toxin by PCR Test Results Negative Negative for lactoferrin, which may indicate the absence of fecal white bloodcells TSH 0.270 - 4.200 mIU/L 1.060 WSR 0 - 20 mm/hr 2 CRP <0.9 mg/dL <0.3 ELI Scr Qual Negative Negative Legend: (L) Low Assessment and Plan 1. Diarrhea, unspecified type (R19.7) 2. Left lower quadrant abdominal pain (R10.32) - Recurrent episodes of watery diarrhea and left lower quadrant abdominal pain for the past month; previous similar episode last year. - Ordered repeat stool studies to rule out infectious causes. - Ordered CT scan of the abdomen to evaluate for diverticulitis or other inflammatory processes; will be scheduled at [facility]. - Set up for colonoscopy - Prescribed Lomotil, 1 tablet before meals and at bedtime, with instructions to start once or twice a day and increase as needed. - Ordered comprehensive metabolic panel to include creatinine prior to imaging with contrast. 3. Celiac disease (HCC) (K90.0) - Patient has been strict with her diet. Maya Rothman PA-C Recording using [employer] software for draft documentation of the visit was discussed with the patient/authorized asset protection representative; all questions welcomed and answered. Patient/authorized asset protection representative agreed to proceed documented in this encounterAvita [facility]25 NoteHNO ID: [id number] Author: JEANNA MCQUEEN OD Service: ? Author Type: UTILIZATION REVIEW COORDINATOR Type: Progress Notes Filed: 05/10/2025 15:13 Note Text: 1. Type 1 diabetes mellitus without retinopathy (HCC) (Primary) HbA1c reviewed Educated patient to continue care and current treatment regimen with primary care doctor and/or bellstaff to maintain optimum levels as they are important to avoid ocular complications Encouraged patient to call the office immediately with any changes to vision or visual concerns 2. History of laser refractive surgery Looks great- no need for specs 3. Punctate keratitis of right eye Recommended gel nightly Follow-up in 1 year for diabetic eye exam or sooner as needed I have confirmed and edited as necessary the relevant HPI, ophthalmic history, ROS, and the neuro exam findings as obtained by others. I have seen and examined Kristopher Walsh. I have discussed the case and the management of this patient's care with the Resident/Fellow, if applicable. I also have reviewed and agree with the assessment and plan as stated above and agree with all of its relevant components. Jeanna Mcqueen, OD May 10, 2025 3:00 [facility]07-10-2025 History of Present illness Narrative* Jeanna Mcqueen, OD - 05/10/2025 3:00 PM EDT 1. Type 1 diabetes mellitus without retinopathy (HCC) (Primary) HbA1c reviewed Educated patient to continue care and current treatment regimen with primary care doctor and/or bellstaff to maintain optimum levels as they are important to avoid ocular complications Encouraged patient to call the office immediately with any changes to vision or visual concerns 2. History of laser refractive surgery Looks great- no need for specs 3. Punctate keratitis of right eye Recommended gel nightly Follow-up in 1 year for diabetic eye exam or sooner as needed I have confirmed and edited as necessary the relevant HPI, ophthalmic history, ROS, and the neuro exam findings as obtained by others. I have seen and examined Kristopher Walsh. I have discussed the case and the management of this patient's care with the Resident/Fellow, if applicable. I also have reviewed and agree with the assessment and plan as stated above and agree withall of its relevant components. Jeanna Mcqueen, SILVERIO May 10, 2025 3:00 PM documented in this encounterAvita [facility]07-10-2025 Instructions* Patient Instructions* Jeanna Mcqueen, OD - 05/10/2025 2:57 PM EDT Use Systane, Refresh or Blink gel nightly before bed in both eyes documented in this encounterAvita [facility]06-12-2025 Telephone encounter Note * Telephone Encounter - Gi Davis LPN - 04/12/2025 8:35 AM EDT See other encounter. All completed and approved. Pt notified via my chart. [facility]06-12[facility] Miscellaneous Notes* Telephone Encounter - Gi Davis LPN - 04/12/2025 8:35 AM EDT See other encounter. All completed and approved. Pt notified via my chart. documented in this encounterAvita Health [facility]06-12-2025 Telephone encounter Note * Telephone Encounter - Gi Davis LPN - 04/12/2025 8:26 AM EDT Fax back from [facility] says need to complete PA on promt[employer]. This was done with their response unable to locate pt. To call them at [phone]. This was not done as this am rec;d a fax PA from [facility] to complete but the rec'd approval from [facility] this was approved from 04/11/25 to 04/11/26.. seescanned documents. Pt notified via my chart. [facility]06-12-[facility] Miscellaneous Notes* Telephone Encounter - Gi Davis LPN - 04/12/2025 8:26 AM EDT Fax back from [facility] says need to complete PA on [employer]. This was done with their response unable to locate pt. To call them at [phone]. This was not done as this am rec;d a fax PA from [facility] to complete but the rec'd approval from [facility] this was approved from 04/11/25 to 04/11/26.. seescanned documents. Pt notified via my chart. * Telephone Encounter - Gi Davis LPN - 04/11/2025 3:49 PM EDT Unable to complete this electronically and on covermymeds.response on covermymeds says to fax PA and notes to [facility] at [phone]. Asking for review SAMIA. * Telephone Encounter - Silvana Dhaliwal LPN - 04/11/2025 3:03 PM EDT Sent in [employer] message from patient: Good afternoon, I started with a new insurance 04/01/25 and I am in need of a Prior Auth on the Dexcom G7 CGM samia. My new rx coverage is [employer] BIN: [id number] RXGroup: [id number] Id: [id number] Incase this plan covers it under medical, my medical coverage is: [facility]# [id number] Id: [id number] documented [facility] Telephone encounter Note * Telephone Encounter - Gi Davis LPN - 04/11/2025 3:49 PM EDT Unable to complete this electronically and on covermymeds.response on covermymeds says to fax PA and notes to [facility] at [phone]. Asking for review SAMIA. [facility]06-11-[facility] Telephone encounter Note* Telephone Encounter - Silvana Dhaliwal LPN - 04/11/2025 3:03 PM EDT Sent in [employer] message from patient: Good afternoon, I started with a new insurance 04/01/25 and I am in need of a Prior Auth on the Dexcom G7 CGM samia. My new rx coverage is [employer] BIN: [id number] RXGroup: [id number] Id: [id number] Incase this plan covers it under medical, my medical coverage is: [facility]# [id number] Id: [id number] [facility]04-02-2025 Telephone encounter Note* Telephone Encounter - Sylvia Edwards MA - 01/31/2025 1:13 PM EDT Patient has been identified by name and date of : yes Patient phones for refill(s): Requested Prescriptions Pending Prescriptions Disp Refills blood sugar diagnostic (ONETOUCH VERIO TEST STRIPS) test strip 200 Strip 0 Sig: Use with blood glucose test 5 times or more daily. Insulin Dep? Yes Date of last office visit in primary care: 07/18/2024 Date of next office visit in primary care: Visit date not found Please advise. Thank you. Sylvia Edwards MA. [facility]04-02-2025 Miscellaneous Notes* Telephone Encounter - Sylvia Edwards MA - 01/31/2025 1:13 PM EDT Patient has been identified by name and date of : yes Patient phones for refill(s): Requested Prescriptions Pending Prescriptions Disp Refills blood sugar diagnostic (ONETOUCH VERIO TEST STRIPS) test strip 200 Strip 0 Sig: Use with blood glucose test 5 times or more daily. Insulin Dep? Yes Date of last office visit in primary care: 07/18/2024 Date of next office visit in primary care: Visit date not found Please advise. Thank you. Sylvia Edwards MA. documented in this encounterAv[facility]03-20-2025 Telephone encounter Note * Telephone Encounter - Viri Ledezma RN - 01/18/2025 9:23 AM EDT Patient called and appointment scheduled. Viri Ledezma RN [facility]03-20-2025 Miscellaneous Notes* Telephone Encounter - Viri Ledezma RN - 01/18/2025 9:23 AM EDT Patient called and appointment scheduled. Viri Ledezma RN * Telephone Encounter - Silvana Lowry RN - 01/17/2025 1:13 PM EDT Mirena IUD inserted in 2022. Pt calling stating she wants IUD removed. Had ESSURE procedure in 2012. Does not desire another IUD/or OCP at this time. Advised Pt she is overdue for annual exam as well. Pt states she currently has [facility] insurance, but recently left so she will soon possibly be transferring to a new OB provider for her annual exam, butbecause we placed IUD and she currently has [facility] insurance, she'd like to have IUD removed at this time. IUD removal order pending. Please file and will contact Pt to get appt scheduled. Silvana Lowry RN documented in this encounterAvita [facility]03-19-2025 Telephone encounter Note * Telephone Encounter - Silvana Lowry RN - 01/17/2025 1:13 PM EDT Mirena IUD inserted in 2022. Pt calling stating she wants IUD removed. Had ESSURE procedure in 2012. Does not desire another IUD/or OCP at this time. Advised Pt she is overdue for annual exam as well. Pt states she currently has [facility] insurance, but recently left so she will soon possibly be transferring to a new OB provider for her annual exam, butbecause we placed IUD and she currently has [facility] insurance, she'd like to have IUD removed at this time. IUD removal order pending. Please file and will contact Pt to get appt scheduled. Silvana Lowry RN [facility]01-06-2025 Telephone encounter Note* Telephone Encounter - Sylvia Edwards MA - 11/06/2024 1:59 PM EST Patient has been identified by name and date of : yes Patient phones for refill(s): Requested Prescriptions Pending Prescriptions Disp Refills insulin lispro (HUMALOG U-100 INSULIN) 100 unit/mL injection 100 mL 4 Sig: USE DIRECTED VIA INSULIN PUMP-MAX IS 60 UNITS DAILY insulin pump cart,auto,BT,G6/7 (OMNIPOD 5 G6-G7 PODS, GEN 5,) crtg 30 Each 3 Sig: Inject 1 Each subcutaneously every 72 hours. Blood-Glucose Sensor (DEXCOM G7 SENSOR) faustino 9 Each 3 Si Each as directed for 10 days. glucagon (BAQSIMI) 3 mg/actuation nasal spray 3 Each 3 Sig: Use 1 [place] in the nose as needed for low blood sugar. May repeat after 15 minutes using a newdevice if there is no response. Date of last office visit in primary care: 07/18/2024 Date of next office visit in primary care: Visit date not found Please advise. Thank you. Sylvia Edwards MA. [facility]01-06-2025 Miscellaneous Notes* Telephone Encounter - Sylvia Edwards MA - 11/06/2024 1:59 PM EST Patient has been identified by name and date of : yes Patient phones for refill(s): Requested Prescriptions Pending Prescriptions Disp Refills insulin lispro (HUMALOG U-100 INSULIN) 100 unit/mL injection 100 mL 4 Sig: USE DIRECTED VIA INSULIN PUMP-MAX IS 60 UNITS DAILY insulin pump cart,auto,BT,G6/7 (OMNIPOD 5 G6-G7 PODS, GEN 5,) crtg 30 Each 3 Sig: Inject 1 Each subcutaneously every 72 hours. Blood-Glucose Sensor (DEXCOM G7 SENSOR) faustino 9 Each 3 Si Each as directed for 10 days. glucagon (BAQSIMI) 3 mg/actuation nasal spray 3 Each 3 Sig: Use 1 [place] in the nose as needed for low blood sugar. May repeat after 15 minutes using a newdevice if there is no response. Date of last office visit in primary care: 07/18/2024 Date of next office visit in primary care: Visit date not found Please advise. Thank you. Sylvia Edwards MA. documented in this encounterAv[facility]10-10-2024 Telephone encounter Note * Telephone Encounter - Marielos Herrera APRN.CNP - 08/10/2024 5:55 PM EDT I did not discontinue. There is a shortage apparently. Pharmacy sent a replacement? Let me know if not ok. [facility]10-10[facility] Miscellaneous Notes* Telephone Encounter - Marielos Herrera APRN.CNP - 08/10/2024 5:55 PM EDT I did not discontinue. There is a shortage apparently. Pharmacy sent a replacement? Let me know if not ok. * Telephone Encounter - Marielos Herrera APRN.CNP - 08/10/2024 5:54 PM EDT The following approved medication requests have been transmitted electronically. Requested Prescriptions Pending Prescriptions Disp Refills insulin lispro (HUMALOG U-100 INSULIN) 100 unit/mL injection 100 mL 4 Sig: USE DIRECTED VIA INSULIN PUMP-MAX IS 60 UNITS DAILY Refused Prescriptions Disp Refills insulin aspart, niacinamide, (FIASP U-100 INSULIN) 100 unit/mL soln [Pharmacy Med Name: FIASP VIA 100U/ML] 3 Sig: PLEASE MAKE CHANGES TO INCLUDE DRUG NAME/STR/DIRECTIONS/QTY/REFILLS BASED ON ALTERNATE PRESCRIBED MEDICATION Refused By: SYLVIA EDWARDS Reason for Refusal: Records indicate that there is a valid prescription at the pharmacy Marielos Herrera APRN.CNP * Telephone Encounter - Sylvia Edwards MA - 08/10/2024 5:47 PM EDT Spoke to patient and since we have approval for PA on lispro and fiasp on back order till unsure date requested we just resent lispro since now will be covered Sylvia Edwards MA * Telephone Encounter - Sylvia Edwards MA - 08/10/2024 5:24 PM EDT Images from the original note were not included. Lispro approved Sylvia Edwards MA * Telephone Encounter - Sylvia Edwards MA - 08/09/2024 3:38 PM EDT Received electronic request from [facility] stating fiasp on national back order. Called [facility] andspoke to [employer] who advised was not given in stock date. Aware fiasp is only formulary option since needing vials. Did verbal ok for lispro 90 day supply will attempt PA to see if we can get approved. covermymeds Goss: [id number] option 2 Reference num [id number] Sylvia Edwards MA documented in this encounterAv[facility]10-10-2024 Telephone encounter Note * Telephone Encounter - Marielos Herrera APRN.CNP - 08/10/2024 5:54 PM EDT The following approved medication requests have been transmitted electronically. Requested Prescriptions Pending Prescriptions Disp Refills insulin lispro (HUMALOG U-100 INSULIN) 100 unit/mL injection 100 mL 4 Sig: USE DIRECTED VIA INSULIN PUMP-MAX IS 60 UNITS DAILY Refused Prescriptions Disp Refills insulin aspart, niacinamide, (FIASP U-100 INSULIN) 100 unit/mL soln [Pharmacy Med Name: FIASP VIA 100U/ML] 3 Sig: PLEASE MAKE CHANGES TO INCLUDE DRUG NAME/STR/DIRECTIONS/QTY/REFILLS BASED ON ALTERNATE PRESCRIBED MEDICATION Refused By: SYLVIA EDWARDS Reason for Refusal: Records indicate that there is a valid prescription at the pharmacy Marielos Herrera APRN.CNP [facility]10-10-[facility] Telephone encounter Note* Telephone Encounter - Sylvia Edwards MA - 08/10/2024 5:47 PM EDT Spoke to patient and since we have approval for PA on lispro and fiasp on back order till unsure date requested we just resent lispro since now will be covered Sylvia Edwards MA [facility]10-[facility] Telephone encounter Note* Telephone Encounter - Sylvia Edwards MA - 08/10/2024 5:24 PM EDT Images from the original note were not included. Lispro approved Sylvia Edwards MA [facility]10-09-2024 Telephone encounter Note* Telephone Encounter - Sylvia Edwards MA - 08/09/2024 3:38 PM EDT Received electronic request from [facility] stating fiasp on national back order. Called zak andspoke to [employer] who advised was not given in stock date. Aware fiasp is only formulary option since needing vials. Did verbal ok for lispro 90 day supply will attempt PA to see if we can get approved. covermymeds Goss: [id number] option 2 Reference num [id number] Sylvia Edwards MA [facility]10-09-2024 Telephone encounter Note* Telephone Encounter - Kelly Awan APRN.CNP - 08/09/2024 9:31 AM EDT Script sent. Kelly Awan APRN.FREDDIE [facility] Work Phone: 1(211) 888-604810-09-2024 Miscellaneous Notes* Telephone Encounter - Kelly Awan APRN.CNP - 08/09/2024 9:31 AM EDT Script sent. Kelly Awan APRN.CNP * Telephone Encounter - Sylvia Edwards MA - 08/09/2024 9:03 AM EDT Received PA for lispro stating formulary brand are novolog and fiasp. Novolog does not come in vials and notified patient due to no record of trying fiasp in past. Patient is willing to switch to formulary medication and advised uses max 60 units per day. Please send Sylvia Edwards MA documented in this encounterAvita [facility]10-09-2024 Telephone encounter Note * Telephone Encounter - Sylvia Edwards MA - 08/09/2024 9:03 AM EDT Received PA for lispro stating formulary brand are novolog and fiasp. Novolog does not come in vials and notified patient due to no record of trying fiasp in past. Patient is willing to switch to formulary medication and advised uses max 60 units per day. Please send Sylvia Edwards MA [facility]10-08-2024 Telephone encounter Note* Telephone Encounter - Nat Barbosa RN - 08/08/2024 5:24 PM EDT rx for novolog was place as a cartridge which patient cannot use due it is for her insulin pump. office thought that this is what was covered. patient would like to have original lispro/humalog rx sent to pharmacy and prior auth completed on that as it is appearing that all vial insulin is needed prior with patients insurance. rx for cartridge has been cancelled [facility]10-08-2024 Miscellaneous Notes* Telephone Encounter - Nat Barbosa RN - 08/08/2024 5:24 PM EDT rx for novolog was place as a cartridge which patient cannot use due it is for her insulin pump. office thought that this is what was covered. patient would like to have original lispro/humalog rx sent to pharmacy and prior auth completed on that as it is appearing that all vial insulin is needed prior with patients insurance. rx for cartridge has been cancelled documented in this encounterAvita [facility]10-08-2024 Telephone encounter Note * Telephone Encounter - Sylvia Edwards MA - 08/08/2024 2:52 PM EDT Patient reached out stating was notified PA needed for insulin aspart when completing PA stated Available Formulary Alternatives: Fiasp, Novolog) . Called [employer] and spoke with rep who ran claim for Novolog brand which went through no PA needed for brand only. Also had her check on dexcom sensor and omnipod to make sure no PA needed. Was advised both go through with paid claims. Sylvia Edwards MA [facility]10-08-2024 Miscellaneous Notes* Telephone Encounter - Sylvia Edwards MA - 08/08/2024 2:52 PM EDT Patient reached out stating was notified PA needed for insulin aspart when completing PA stated Available Formulary Alternatives: Fiasp, Novolog) . Called [facility] and spoke with rep who ran claim for Novolog brand which went through no PA needed for brand only. Also had her check on dexcom sensor and omnipod to make sure no PA needed. Was advised both go through with paid claims. Sylvia Edwards MA * Telephone Encounter - Marielos Herrera APRN.CNP - 08/08/2024 1:28 PM EDT The following approved medication requests have been transmitted electronically. Requested Prescriptions Pending Prescriptions Disp Refills insulin pump cart,automated,BT (OMNIPOD 5 G6 PODS, GEN 5,) crtg 30 Each 3 Sig: Inject 1 Each subcutaneously every 72 hours. Blood-Glucose Sensor (DEXCOM G7 SENSOR) faustino 9 Each 3 Si Each as directed for 10 days. Insulin Aspart (NOVOLOG) 100 unit/mL crtg 100 mL 3 Sig: use as directed via insulin pump with max of 50 units Marielos Herrera APRN.CNP * Telephone Encounter - Nat Barbosa RN - 08/08/2024 10:39 AM EDT Prescription Refill Information The patient has been identified by name and date of : Yes Caregiver verified no other encounters exist for this prescription request: Yes Caregiver confirmed with patient/requestor that no other refills are due, in the near future, with this provider at this time: Yes The last office visit in the department: 07/2024 Does the patient have a future office visit with this provider/department: Yes Requested Prescriptions Pending Prescriptions Disp Refills insulin pump cart,automated,BT (OMNIPOD 5 G6 PODS, GEN 5,) crtg 30 Each 3 Sig: Inject 1 Each subcutaneously every 72 hours. insulin lispro (HUMALOG U-100 INSULIN) 100 unit/mL injection 50 mL 4 Sig: USE DIRECTED VIA INSULIN PUMP-MAX IS 50 UNITS DAILY Blood-Glucose Sensor (DEXCOM G7 SENSOR) faustino 9 Each 3 Si Each as directed for 10 days. Nat Barbosa RN August 08, 2024 11:04 AM documented in this encounterAvita [facility]10-[facility]-2024 Telephone encounter Note * Telephone Encounter - Marielos Herrera APRN.CNP - 08/08/2024 1:28 PM EDT The following approved medication requests have been transmitted electronically. Requested Prescriptions Pending Prescriptions Disp Refills insulin pump cart,automated,BT (OMNIPOD 5 G6 PODS, GEN 5,) crtg 30 Each 3 Sig: Inject 1 Each subcutaneously every 72 hours. Blood-Glucose Sensor (DEXCOM G7 SENSOR) faustino 9 Each 3 Si Each as directed for 10 days. Insulin Aspart (NOVOLOG) 100 unit/mL crtg 100 mL 3 Sig: use as directed via insulin pump with max of 50 units Marielos Herrera APRN.CNP [facility]10-08-2024 Telephone encounter Note* Telephone Encounter - Nat Barbosa RN - 08/08/2024 10:39 AM EDT Prescription Refill Information The patient has been identified by name and date of : Yes Caregiver verified no other encounters exist for this prescription request: Yes Caregiver confirmed with patient/requestor that no other refills are due, in the near future, with this provider at this time: Yes The last office visit in the department: 07/2024 Does the patient have a future office visit with this provider/department: Yes Requested Prescriptions Pending Prescriptions Disp Refills insulin pump cart,automated,BT (OMNIPOD 5 G6 PODS, GEN 5,) crtg 30 Each 3 Sig: Inject 1 Each subcutaneously every 72 hours. insulin lispro (HUMALOG U-100 INSULIN) 100 unit/mL injection 50 mL 4 Sig: USE DIRECTED VIA INSULIN PUMP-MAX IS 50 UNITS DAILY Blood-Glucose Sensor (DEXCOM G7 SENSOR) faustino 9 Each 3 Si Each as directed for 10 days. Nat Barbosa RN August 08, 2024 11:04 AM [facility]09-17-[facility] Instructions* Patient Instructions* Marielos Herrera APRN.CNP - 07/18/2024 9:18 AM EDT 1) Women's Health appt. Due 2) Schedule back in 6 months documented in this encounterAvita [facility]09-17-2024 History of Present illness Narrative* Marielos Herrera APRN.CNP - 07/18/2024 8:59 AM EDT This is a 34 year old female who presents today with: No chief complaint on file. HISTORY OF PRESENT ILLNESS: Kristopher Walsh is a 34 year old female. No chief complaint on file. Will need supplies for type 1 DM supplies PAST MEDICAL HISTORY: PAST MEDICAL HISTORY Diagnosis Date CAFE' AU LAIT/////DYSCHROMIA UNSPECIFIED 08/12/2007 Celiac disease Diabetes mellitus without mention of complication Diabetes mellitus Duodenitis without mention of hemorrhage 04/13/2012 Dysmenorrhea resolved Excessive or frequent menstruation Heavy periods resolved Irregular menstrual cycle Irregular periods resolved Myopia 06/07/2015 Myopia 09/17/2016 Other specified anemias Somatic dysfunction of lumbar region 02/15/2018 Somatic dysfunction of sacroiliac joint 02/15/2018 PAST SURGICAL HISTORY Procedure Laterality Date ESSURE 12/30/12 LASIK Bilateral 02/19/[address] [place] ALLERGIES Gluten and Adhesive MEDICATIONS Current Outpatient Medications Medication Sig insulin pump cart,auto,BT,G6/7 (OMNIPOD 5 G6-G7 PODS, GEN 5,) crtg Inject 1 Each subcutaneously every 72 hours. insulin lispro (HUMALOG U-100 INSULIN) 100 unit/mL injection USE DIRECTED VIA INSULIN PUMP-MAX IS 50 UNITS DAILY ondansetron orally disintegrating (ZOFRAN ODT) 4 mg disintegrating tablet Take 1 tablet by mouth every 6 hours as needed for nausea/vomiting. insulin lispro (HUMALOG KWIKPEN INSULIN) 100 unit/mL Use as directed. Max dosage up to 50 units perday. insulin glargine (LANTUS SOLOSTAR U-100 INSULIN) 100 unit/mL (3 mL) Inject 50 Units subcutaneously once daily. In case of pump failure. insulin pump cart,automated,BT (OMNIPOD 5 G6 PODS, GEN 5,) crtg Inject 1 Each subcutaneously every 72 hours. Blood-Glucose Meter (ONETOUCH VERIO FLEX METER) 1 Each as needed. lancets 33 gauge Test blood sugar 5 times a day Insulin [place], Disposable, (BD ULTRAFINE III MINI PEN) 31 gauge x 3/16 Uses 8 a day levonorgestrel (MIRENA) 21 mcg/24 hours (8 yrs) 52 mg IUD 1 Each by INTRAUTERINE route as directed. glucagon (BAQSIMI) 3 mg/actuation nasal spray Use 1 [place] in the nose as needed for low blood sugar. May repeat after 15 minutes using a new device if there is no response. insulin pump cart,auto,BT-cntr (OMNIPOD 5 G6 INTRO KIT, GEN 5,) crtg Inject 1 Each subcutaneously once daily. blood sugar diagnostic (BLOOD GLUCOSE TEST) test strip Test blood sugar(s) 5 times daily. Dx: Type 1 DM - Controlled E10.9 Insulin: Yes MULTIVITAMIN ORAL Take by mouth. omega-3 fatty acids(FISH OIL 500 MG CAP) Take one(1) capsule daily. No current facility-administered medications for this visit. FAMILY HISTORY Problem Relation Age of Onset Cancer Mother Skin, squamous cell Cancer Father throat-squamous cell Heart Maternal Grandfather coronary artery disease Cataract Maternal Grandfather Heart Paternal Grandfather [place] Social History Tobacco Use Smoking status: Never Smokeless tobacco: Never Vaping Use Vaping status: Never Used Substance Use Topics Alcohol use: Yes Comment: occasional Drug use: No REVIEW OF SYSTEMS GENERAL: No weight loss, malaise or fevers/chills HEENT: Some frequent but no significant headaches- frontal, No changes in hearing or vision. NECK: Negative for lumps, goiter, pain and significant neck swelling RESPIRATORY: Negative for cough, hemoptysis, wheezing, dyspnea or shortness of breath CARDIOVASCULAR: Negative for chest pain, leg swelling, orthopnea, or palpitations GI: some nausea, no vomiting, no diarrhea/constipation. No hematochezia/melena. No heartburn or reflux symptoms. : No history of dysuria, frequency or incontinence MUSCULOSKELETAL: Negative for joint pain or swelling. RLS often SKIN: Negative for lesions, rash, and itching ENDOCRINE: Negative for cold or heat intolerance, polyuria, polydipsia BSS run 98-160; HgA1c 6.0 NEURO: No history of syncope, paralysis, seizures or tremors MOOD: Negative for depression, anxiety, or suicidal ideation. EXAM: BP 110/62 Pulse 68 Resp 16 Wt 59.9 kg (132 lb) LMP 01/14/2024 (Approximate) SpO2 99% BMI 21.97 kg/m PHYSICAL EXAM: Physical Exam Vitals reviewed. Constitutional: Appearance: Normal appearance. HENT: Head: Normocephalic. Neck: Vascular: No carotid bruit. Cardiovascular: Rate and Rhythm: Normal rate and regular rhythm. Pulses: Normal pulses. Heart sounds: Normal heart sounds. Pulmonary: Effort: Pulmonary effort is normal. Breath sounds: Normal breath sounds. Abdominal: General: Bowel sounds are normal. Palpations: Abdomen is soft. Musculoskeletal: General: Normal range of motion. Cervical back: Normal range of motion and neck supple. Lymphadenopathy: Cervical: No cervical adenopathy. Skin: General: Skin is warm and dry. Neurological: General: No focal deficit present. Mental Status: She is alert and oriented to person, place, and time. Psychiatric: Mood and Affect: Mood normal. Behavior: Behavior normal. LABS: reviewed recent labs ASSESSMENT/PLAN: 1. Type 1 diabetes mellitus (HCC) - ICD9: 250.01, ICD10: E10.9 (primary diagnosis) - Controlled - Continue current medications - will send RX to new coverage pharmacy when insurance changes - Declined brian or statin 2. RLS (restless legs syndrome) - ICD9: 333.94, ICD10: G25.81 Offered gabapentin low dose at bedtime or ropinerole, declined - no anemia Discussed treatment plan and patient voices understanding. Patient's questions answered appropriately. Medications and potential side effects were discussed and patient voices understanding. Return to the office as scheduled or as needed for worsening/no improvement. DESTINY Yung APRN.CNP documented in this encounterAvita [facility]08-19-2024 Telephone encounter Note * Telephone Encounter - Marielos Herrera APRN.CNP - 06/19/2024 2:19 PM EDT The following approved medication requests have been transmitted electronically. Requested Prescriptions Pending Prescriptions Disp Refills insulin pump cart,auto,BT,G6/7 (OMNIPOD 5 G6-G7 PODS, GEN 5,) crtg 9 Each 0 Sig: Inject 1 Each subcutaneously every 72 hours. Marielos Herrera APRN.CNP [facility]08-19-2024 Miscellaneous Notes* Telephone Encounter - Marielos Herrera APRN.CNP - 06/19/2024 2:19 PM EDT The following approved medication requests have been transmitted electronically. Requested Prescriptions Pending Prescriptions Disp Refills insulin pump cart,auto,BT,G6/7 (OMNIPOD 5 G6-G7 PODS, GEN 5,) crtg 9 Each 0 Sig: Inject 1 Each subcutaneously every 72 hours. Marielos Herrera APRN.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 CLERK * Telephone Encounter - Gloria Godinez MA - 06/19/2024 1:11 PM EDT Prescription Refill Information The patient has been identified by name and date of : Yes Caregiver verified no other encounters exist for this prescription request: Yes Caregiver confirmed with patient/requestor that no other refills are due, in the near future, with this provider at this time: Yes The last office visit in the department: 06/07/24 Does the patient have a future office visit with this provider/department: No Requested Prescriptions Pending Prescriptions Disp Refills insulin pump cart,auto,BT,G6/7 (OMNIPOD 5 G6-G7 PODS, GEN 5,) crtg 9 Each 0 Sig: Inject 1 Each subcutaneously every 72 hours. Gloria Godinez MA June 19, 2024 1:19 PM documented in this encounterAv[facility] Telephone encounter Note * Telephone Encounter - Gloria Godinez MA - 06/19/2024 1:11 PM EDT Prescription Refill Information The patient has been identified by name and date of : Yes Caregiver verified no other encounters exist for this prescription request: Yes Caregiver confirmed with patient/requestor that no other refills are due, in the near future, with this provider at this time: Yes The last office visit in the department: 06/07/24 Does the patient have a future office visit with this provider/department: No Requested Prescriptions Pending Prescriptions Disp Refills insulin pump cart,auto,BT,G6/7 (OMNIPOD 5 G6-G7 PODS, GEN 5,) crtg 9 Each 0 Sig: Inject 1 Each subcutaneously every 72 hours. Gloria Godinez MA June 19, 2024 1:19 PM [facility]08-08-[facility] Note* [facility] Outreach Note - Clover aBilon RN - 06/08/2024 2:25 PM EDT Enrolled in diabetes mellitus Program MEDICATIONS PER RX DATABASE humalog kwikpen pump failure lantus for pump failure Lispro (humalog unit(s)-100) for pump Adherent with medication refills YES Date Verified 06/08/24 Diagnosis of Coronary Artery Disease No Last 3 Encounter BP Readings: Date: BP: 06/07/2024 100/70 02/14/2024 112/64 10/04/2023 135/84 LDL Cholesterol (mg/dL) Date Value 07/28/2022 71 04/17/2020 65 12/12/2018 53 12/20/2017 52 12/01/2016 64 12/29/2012 45 LDL Cholesterol, Nonfasting (mg/dL) Date Value 10/04/2023 97 10/14/2022 80 07/29/2021 54 No results found for: LDLCHOLDIR LDL:HDL RATIO Applies to members that are diet and Exercise controlled LDL/HDL Ratio, Nonfasting Date Value Ref Range Status 10/04/2023 1.21 <2.54 mg/dL Final Comment: Reference: 1. National Cholesterol Education Program ATP III Guideline At-A-Glance Quick Desk Reference: National Heart, Lung, and Blood [place]. National Institutes of Health. 2001: NIH Publication No. 01-3305. 2. An International Atherosclerosis Society position paper: global recommendations for the management of dyslipidemia: executive summary, Atherosclerosis. 2014: 232(2):410-413. Diabetic Screening Lab Results Component Value Date HBA1C 5.8 03/12/2022 HBA1C 6.0 07/29/2021 HBA1C 5.5 11/26/2020 HBA1C 5.5 04/15/2020 HBA1C 5.5 12/12/2018 HBA1C 6.3 12/20/2017 [facility]08-08-[facility] Miscellaneous Notes* [facility] Outreach Note - Clover Bailon RN - 06/08/2024 2:25 PM EDT Enrolled in diabetes mellitus Program MEDICATIONS PER RX DATABASE humalog kwikpen pump failure lantus for pump failure Lispro (humalog unit(s)-100) for pump Adherent with medication refills YES Date Verified 06/08/24 Diagnosis of Coronary Artery Disease No Last 3 Encounter BP Readings: Date: BP: 06/07/2024 100/70 02/14/2024 112/64 10/04/2023 135/84 LDL Cholesterol (mg/dL) Date Value 07/28/2022 71 04/17/2020 65 12/12/2018 53 12/20/2017 52 12/01/2016 64 12/29/2012 45 LDL Cholesterol, Nonfasting (mg/dL) Date Value 10/04/2023 97 10/14/2022 80 07/29/2021 54 No results found for: LDLCHOLDIR LDL:HDL RATIO Applies to members that are diet and Exercise controlled LDL/HDL Ratio, Nonfasting Date Value Ref Range Status 10/04/2023 1.21 <2.54 mg/dL Final Comment: Reference: 1. National Cholesterol Education Program ATP III Guideline At-A-Glance Quick Desk Reference: National Heart, Lung, and Blood [place]. National Institutes of Health. 2001: NIH Publication No. 01-3305. 2. An International Atherosclerosis Society position paper: global recommendations for the management of dyslipidemia: executive summary, Atherosclerosis. 2014: 232(2):410-413. Diabetic Screening Lab Results Component Value Date HBA1C 5.8 03/12/2022 HBA1C 6.0 07/29/2021 HBA1C 5.5 11/26/2020 HBA1C 5.5 04/15/2020 HBA1C 5.5 12/12/2018 HBA1C 6.3 12/20/2017 documented in this encounterAvita [facility]08-07-2024 History of Present illness Narrative* Michelle Laguerre APRN.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 CLERK - 06/07/2024 10:31 AM EDT 06/07/2024 Patient presents with: UTI SUBJECTIVE: This is a 33 year old that is here today for Above Complaints. Started with urinary pressure last night. This AM with some burning. Admits to some frequency. Denies fevers, chills, abdominal pain, back pain, nausea, vomiting, urinary urgency or hematuria. Patient will be going out of town this weekend and worried about this becoming worse Latest Ref Rng 06/07/2024 GLUCOSE UA (POCT) Negative mg/dL Negative BILIRUBIN UA (POCT) Negative Negative KETONE UA (POCT) Negative mg/dL Negative SPECIFIC GRAVITY UA (POCT) 1.005 - 1.030 1.010 HEMOGLOBIN/BLOOD UA (POCT) Negative Small ! PH UA (POCT) 4.5 - 8.0 7.0 PROTEIN UA (POCT) Negative mg/dL Negative UROBILINOGEN UA (POCT) Normal E.U./dL 0.2 NITRITE UA (POCT) Negative Negative LEUKOCYTES UA (POCT) Negative Negative COLOR UA (POCT) Yellow CLARITY UA (POCT) Clear Legend: ! Abnormal PAST MEDICAL HISTORY 08/12/2007: CAFE' AU LAIT/////DYSCHROMIA UNSPECIFIED No date: Celiac disease No date: Diabetes mellitus without mention of complication Comment: Diabetes mellitus 04/13/2012: Duodenitis without mention of hemorrhage No date: Dysmenorrhea Comment: resolved No date: Excessive or frequent menstruation Comment: Heavy periods resolved No date: Irregular menstrual cycle Comment: Irregular periods resolved 06/07/2015: Myopia 09/17/2016: Myopia No date: Other specified anemias 02/15/2018: Somatic dysfunction of lumbar region 02/15/2018: Somatic dysfunction of sacroiliac joint ALLERGIES Gluten and Adhesive MEDICATIONS Current Outpatient Medications Medication Sig insulin lispro (HUMALOG U-100 INSULIN) 100 unit/mL injection USE DIRECTED VIA INSULIN PUMP-MAX IS 50 UNITS DAILY ondansetron orally disintegrating (ZOFRAN ODT) 4 mg disintegrating tablet Take 1 tablet by mouth every 6 hours as needed for nausea/vomiting. insulin lispro (HUMALOG KWIKPEN INSULIN) 100 unit/mL Use as directed. Max dosage up to 50 units perday. insulin glargine (LANTUS SOLOSTAR U-100 INSULIN) 100 unit/mL (3 mL) Inject 50 Units subcutaneously once daily. In case of pump failure. insulin pump cart,automated,BT (OMNIPOD 5 G6 PODS, GEN 5,) crtg Inject 1 Each subcutaneously every 72 hours. Blood-Glucose Meter (ONETOUCH VERIO FLEX METER) 1 Each as needed. lancets 33 gauge Test blood sugar 5 times a day Insulin [place], Disposable, (BD ULTRAFINE III MINI PEN) 31 gauge x 3/16 Uses 8 a day levonorgestrel (MIRENA) 21 mcg/24 hours (8 yrs) 52 mg IUD 1 Each by INTRAUTERINE route as directed. glucagon (BAQSIMI) 3 mg/actuation nasal spray Use 1 [place] in the nose as needed for low blood sugar. May repeat after 15 minutes using a new device if there is no response. insulin pump cart,auto,BT-cntr (OMNIPOD 5 G6 INTRO KIT, GEN 5,) crtg Inject 1 Each subcutaneously once daily. blood sugar diagnostic (BLOOD GLUCOSE TEST) test strip Test blood sugar(s) 5 times daily. Dx: Type 1 DM - Controlled E10.9 Insulin: Yes MULTIVITAMIN ORAL Take by mouth. omega-3 fatty acids(FISH OIL 500 MG CAP) Take one(1) capsule daily. No current facility-administered medications for this visit. Medications and allergies reviewed by this provider. SOCIAL HISTORY Social History Tobacco Use Smoking status: Never Smokeless tobacco: Never Vaping Use Vaping Use: Never used Substance Use Topics Alcohol use: Yes Comment: occasional Drug use: No REVIEW OF SYSTEMS All other reviewed and negative other than HPI. OBJECTIVE: BP 100/70 Pulse 60 Temp 37 C (98.6 F) (Temporal) Resp 12 Wt 59.4 kg (131 lb) LMP 01/14/2024 (Approximate) BMI 21.80 kg/m . Vital signs reviewed by this provider. APPEARANCE Well appearing, alert, in no acute distress, well-hydrated, well nourished. EYES PERRLA, conjunctiva and sclera normal. HEART RRR with normal S1 and S2, no murmurs, no gallops, no JVD appreciated LUNG clear to auscultation ABDOMEN no tenderness to palpation BACK: No CVA tenderness SKIN Skin color, texture, turgor normal, no suspicious rashes or lesions to exposed skin Depression Screening Never done Anxiety Screening Never done HPV Vaccine(3 - 3-dose series) due on 01/14/2008 Pneumococcal Vaccine(2 of 2 - PCV) due on 09/24/2010 Covid-19 Vaccine() Never done Diabetic Foot Exam due on 03/15/2024 Cervical Cancer Screening due on 06/05/2024 Influenza Vaccine(1) due on 07/02/2024 HbA1C due on 08/01/2024 Urine Albumin:Creatinine Ratio due on 10/04/2024 LDL Cholesterol due on 10/04/2024 Annual PCP Team Chronic Disease Visit due on 02/13/2025 Dilated Retinal Exam due on 05/09/2025 DTaP,Tdap,Td Vaccine(8 - Td or Tdap) due on 07/29/2031 Hepatitis B Vaccine Completed Hepatitis C Screening Completed HIV Screening Completed ASSESSMENT/PLAN: 1. Dysuria - ICD9: 788.1, ICD10: R30.0 Acute - no red flag symptoms or exam findings - red flag symptoms discussed, verbalizes understanding - UA positive for hematuria - Send urine for culture - Begin treatment with Bactrim DS BID for 3 days - Patient education for prevention given - UA DIP, URINE (POC) - URINE CULTURE - SULFAMETHOXAZOLE 800 MG-TRIMETHOPRIM 160 MG TABLET - follow-up if symptoms fail to improve to ER with red flag symptoms Michelle Laguerre APRN.FREDDIE Prescription instructions reviewed with patient as applicable. Patient advised if symptoms do not improve or if symptoms worsen sooner, to contact their primary care physician. Potential red flag symptoms discussed with the patient. Reviewed appropriate action plan to take if red flag symptoms occur. Patient agreeable to treatment plan. Medical Decision Making: Problems: Low: Acute, uncomplicated illness or injury Data: Unique test(s) ordered: 1 Risk: Moderate: Drug management Medical Decision Making Level: 3 - Low documented in this encounterAvita [facility]07-09-2024 History of Present illness Narrative* Jeanna Mcqueen, OD - 05/09/2024 3:13 PM EDT 1. Type 1 diabetes mellitus without retinopathy (HCC) Risk of diabetic changes and vision loss can be minimized by tight control of blood sugar, blood pressure, and cholesterol levels. Educated patient to continue care with primary care doctor and/or bellstaff to maintain optimum levels as they are important to avoid ocular complications. Encouraged patient to call the office immediately with any changes to vision or visual concerns. Advised to not wait until the next scheduled exam. 2. History of laser refractive surgery Doing well Monitor 3. Punctate keratitis of right eye Educated pt- asymptomatic Recommended OTC art tears as needed Follow-up in 1 year for diabetic eye exam or sooner as needed Jeanna Mcqueen, OD May 09, 2024 3:13 PM documented in this encounterAvita [facility]07-08-2024 Telephone encounter Note * Telephone Encounter - Sylvia Edwards MA - 05/08/2024 10:24 AM EDT Patient has been identified by name and date of : yes Patient phones for refill(s): Requested Prescriptions Pending Prescriptions Disp Refills insulin lispro (HUMALOG U-100 INSULIN) 100 unit/mL injection 50 mL 4 Sig: USE DIRECTED VIA INSULIN PUMP-MAX IS 50 UNITS DAILY Date of last office visit in primary care: 02/14/2024 Date of next office visit in primary care: Visit date not found Please advise. Thank you. Sylvia Edwards MA. [facility] Miscellaneous Notes* Telephone Encounter - Sylvia Edwards MA - 05/08/2024 10:24 AM EDT Patient has been identified by name and date of : yes Patient phones for refill(s): Requested Prescriptions Pending Prescriptions Disp Refills insulin lispro (HUMALOG U-100 INSULIN) 100 unit/mL injection 50 mL 4 Sig: USE DIRECTED VIA INSULIN PUMP-MAX IS 50 UNITS DAILY Date of last office visit in primary care: 02/14/2024 Date of next office visit in primary care: Visit date not found Please advise. Thank you. Sylvia Edwards MA. documented in this encounterAvita [facility]04-15-2024 Telephone encounter Note * Telephone Encounter - Sirisha Talbot LPN - 02/14/2024 3:01 PM EDT Please call pt to schedule appt with gastro. Thank you, Sirisha Talbot LPN [facility]-15-[facility] Miscellaneous Notes* Telephone Encounter - Sirisha Talbot LPN - 02/14/2024 3:01 PM EDT Please call pt to schedule appt with gastro. Thank you, Sirisha Talbot LPN documented in this encounterAvita [facility]04-15-2024 History of Present illness Narrative* Opal Pereira RT(R) - 02/14/2024 1:10 PM EDT Radiology Service Progress Note PATIENT NAME: Kristopher Walsh DATE OF SERVICE: February 14, 2024 TIME: 1:27 PM PATIENT IDENTITY VERIFICATION COMPLETED USING TWO (2) IDENTIFIERS: Name and Date of confirmedby patient verbally. FALL SCREENING: Has the patient had 2 falls in the last year or 1 fall with injury or currently using an Ambulatory Assistive Device (Walker, Cane, Wheelchair, Crutches, etc.)? No PATIENT GENDER DATA: Female. status: : No status: NO. PATIENT RELEVANT IMPLANT DATA REVIEWED: Not Applicable PATIENT PRESENTS WITH AN IMPLANTABLE OR ATTACHED MARINE MAMMAL TRAINER: No RADIOLOGY DEPARTMENT: General X-ray: Exam(s) Completed: Abdomen X-Ray: Abdomen PERIPHERAL IV DATA: Not applicable SIGNED BY: RT Greta(R) February 14, 2024 1:27 PM documented in this encounterAvita Health [facility]04-15-2024 History of Present illness Narrative* Maya Rothman PA-C - 02/14/2024 12:39 PM EDT Chief Complaint Patient presents with: Diarrhea: X 3 weeks HPI Kristopher Walsh is a 33 year old female who presents here today for Above Complaints.. Patient reports loose stools for the past 3 weeks. At least 1-3 times a day. Patient has hx of type 1 diabetes and celiac disease. Therefore she follows a pretty structured diet that she hasn't deviated from. She denies any abdominal pain or cramping. Tried imodium which did help. No BM yesterday. But had another loose stool this morning. She also has decreased milk and caffeine over the past 2 days to see if that would help. Past medical history, appointments, medications, allergies reviewed. Previous Medical History PAST MEDICAL HISTORY Diagnosis Date CAFE' AU LAIT/////DYSCHROMIA UNSPECIFIED 08/12/2007 Celiac disease Diabetes mellitus without mention of complication Diabetes mellitus Duodenitis without mention of hemorrhage 04/13/2012 Dysmenorrhea resolved Excessive or frequent menstruation Heavy periods resolved Irregular menstrual cycle Irregular periods resolved Myopia 06/07/2015 Myopia 09/17/2016 Other specified anemias Somatic dysfunction of lumbar region 02/15/2018 Somatic dysfunction of sacroiliac joint 02/15/2018 Previous Surgical History PAST SURGICAL HISTORY Procedure Laterality Date ESSURE 12/30/12 LASIK Bilateral 02/19/[address] ROCK Family History FAMILY HISTORY Problem Relation Age of Onset Cancer Mother Skin, squamous cell Cancer Father throat-squamous cell Heart Maternal Grandfather coronary artery disease Cataract Maternal Grandfather Heart Paternal Grandfather AL Patient Allergies ALLERGIES Allergen Reactions Gluten Other: See Comments Celiac disease Adhesive Rash, Itching Current Medications Current Outpatient Medications on File Prior to Visit Medication Sig ondansetron orally disintegrating (ZOFRAN ODT) 4 mg disintegrating tablet Take 1 tablet by mouth every 6 hours as needed for nausea/vomiting. insulin lispro (HUMALOG KWIKPEN INSULIN) 100 unit/mL Use as directed. Max dosage up to 50 units perday. insulin glargine (LANTUS SOLOSTAR U-100 INSULIN) 100 unit/mL (3 mL) Inject 50 Units subcutaneously once daily. In case of pump failure. insulin pump cart,automated,BT (OMNIPOD 5 G6 PODS, GEN 5,) crtg Inject 1 Each subcutaneously every 72 hours. Blood-Glucose Meter (Consensus OrthopedicsUCH VERIO FLEX METER) 1 Each as needed. lancets 33 gauge Test blood sugar 5 times a day Insulin [place], Disposable, (BD ULTRAFINE III MINI PEN) 31 gauge x /16 Uses 8 a day insulin lispro (HUMALOG U-100 INSULIN) 100 unit/mL injection USE DIRECTED VIA INSULIN PUMP-MAX IS 50 UNITS DAILY levonorgestrel (MIRENA) 21 mcg/24 hours (8 yrs) 52 mg IUD 1 Each by INTRAUTERINE route as directed. glucagon (BAQSIMI) 3 mg/actuation nasal spray Use 1 [place] in the nose as needed for low blood sugar. May repeat after 15 minutes using a new device if there is no response. insulin pump cart,auto,BT-cntr (OMNIPOD 5 G6 INTRO KIT, GEN 5,) crtg Inject 1 Each subcutaneously once daily. blood sugar diagnostic (BLOOD GLUCOSE TEST) test strip Test blood sugar(s) 5 times daily. Dx: Type 1 DM - Controlled E10.9 Insulin: Yes MULTIVITAMIN ORAL Take by mouth. omega-3 fatty acids(FISH OIL 500 MG CAP) Take one(1) capsule daily. tretinoin (RETIN-A) 0.05 % cream Apply to affected area daily at bedtime. buPROPion XL (WELLBUTRIN XL) 150 mg 24 hr tablet Take 1 tablet by mouth once daily. No current facility-administered medications on file prior to visit. Social History Social History Tobacco Use Smoking status: Never Smokeless tobacco: Never Vaping Use Vaping Use: Never used Substance Use Topics Alcohol use: Yes Comment: occasional Drug use: No Review of Symptoms REVIEW OF SYSTEMS See hpi EXAM: BP 112/64 (BP Site: Left Arm, BP Position: Sitting, BP Cuff Size: Regular Adult) Pulse 62 Temp 37 C (98.6 F) (Right Tympanic) Resp 16 Wt 60.8 kg (134 lb) LMP 01/14/2024 (Approximate) [id number]% BMI 22.30 kg/m General Appearance: Well appearing, alert, in no acute distress, well-hydrated, well nourished.. Abdomen: abdomen soft. Mild tenderness in llq. No rebound. No guarding. BS wnl.. Health Maintenance List HPV Vaccine(3 - 3-dose series) due on 01/14/2008 Pneumococcal Vaccine(2 of 2 - PCV) due on 09/24/2010 Covid-19 Vaccine() Never done Behavioral Health Screening Never done Diabetic Foot Exam due on 03/15/2024 Pap Testing due on 06/05/2024 HPV Testing due on 06/05/2024 Dilated Retinal Exam due on 04/09/2024 Influenza Vaccine(Season Ended) due on 07/02/2024 HbA1C due on 08/01/2024 Urine Albumin:Creatinine Ratio due on 10/04/2024 LDL Cholesterol due on 10/04/2024 Annual PCP Team Chronic Disease Visit due on 10/04/2024 DTaP,Tdap,Td Vaccine(8 - Td or Tdap) due on 07/29/2031 Hepatitis B Vaccine Completed Hepatitis C Screening Completed HIV Screening Completed Data reviewed ASSESSMENT/PLAN: 1. Diarrhea, unspecified type - ICD9: 787.91, ICD10: R19.7 (primary diagnosis) Unclear etiology Check labs, stool culture and will get Xray to evaluate for partial blockage. If all normal and no improvement in symptoms, recommend gastro eval. Okay to continue imodium prn for now. - C. DIFFICILE PCR - ENTERIC BACTERIAL PANEL BY PCR - CRYPTOSPORIDIUM AND GIARDIA ANTIGENS BY EIA - FAT, FECAL QUAL - FECAL LACTOFERRIN/LEUKOCYTES - THYROID STIMULATING HORMONE - COMPREHENSIVE METABOLIC PANEL - COMPLETE BLOOD COUNT AND DIFFERENTIAL - CONSULT TO GASTROENTEROLOGY - XR ABDOMEN 1V SUPINE - SEDIMENTATION RATE, WESTERGREN - C-REACTIVE PROTEIN - ELI BLOOD 2. LLQ pain - ICD9: 789.04, ICD10: R10.32 As above. - C. DIFFICILE PCR - ENTERIC BACTERIAL PANEL BY PCR - CRYPTOSPORIDIUM AND GIARDIA ANTIGENS BY EIA - FAT, FECAL QUAL - FECAL LACTOFERRIN/LEUKOCYTES - THYROID STIMULATING HORMONE - COMPREHENSIVE METABOLIC PANEL - COMPLETE BLOOD COUNT AND DIFFERENTIAL - CONSULT TO GASTROENTEROLOGY - XR ABDOMEN 1V SUPINE - SEDIMENTATION RATE, WESTERGREN - C-REACTIVE PROTEIN - ELI BLOOD Maya Rothman PA-C documented in this encounterAvita [facility]04-01-[facility]24 History of Present illness Narrative* Olesya Calloway LPN - 01/31/2024 2:11 PM EDT Patient presents for POC A1C testing. Denies any problems at this time. Tolerated procedure well. Olesya Calloway LPN documented in this encounterAvita Health [facility]04-01-2024 Miscellaneous Notes* Telephone Encounter - Silvana Dhaliwal LPN - 01/31/2024 8:49 AM EDT Patient contacted by [facility] and they are requesting a A1C SAMIA for [employer] program. Please orderPOC A1C for patient for insurance. Thank you documented in this encounterAvita [facility]03-01-2024 Miscellaneous Notes* [facility] Outreach Note - Clover Bailon RN - 12/31/2023 2:36 PM EST Enrolled in diabetes mellitus Program MEDICATIONS PER RX DATABASE humalog kwikpen pump failure lantus for pump failure Lispro (humalog unit(s)-100) for pump Adherent with medication refills YES Date Verified 12/31/23 Diagnosis of Coronary Artery Disease No Last 3 Encounter BP Readings: Date: BP: 10/04/2023 135/84 03/15/2023 104/70 12/29/2022 102/60 LDL Cholesterol (mg/dL) Date Value 07/28/2022 71 04/17/2020 65 12/12/2018 53 12/20/2017 52 12/01/2016 64 12/29/2012 45 LDL Cholesterol, Nonfasting (mg/dL) Date Value 10/04/2023 97 10/14/2022 80 07/29/2021 54 No results found for: LDLCHOLDIR LDL:HDL RATIO Applies to members that are diet and Exercise controlled LDL/HDL Ratio, Nonfasting Date Value Ref Range Status 10/04/2023 1.21 <2.54 mg/dL Final Comment: Reference: 1. National Cholesterol Education Program ATP III Guideline At-A-Glance Quick Desk Reference: National Heart, Lung, and Blood [place]. National Institutes of Health. 2001: NIH Publication No. 01-3305. 2. An International Atherosclerosis Society position paper: global recommendations for the management of dyslipidemia: executive summary, Atherosclerosis. 2014: 232(2):410-413. Diabetic Screening Lab Results Component Value Date HBA1C 5.8 03/12/2022 HBA1C 6.0 07/29/2021 HBA1C 5.5 11/26/2020 HBA1C 5.5 04/15/2020 HBA1C 5.5 12/12/2018 HBA1C 6.3 12/20/2017 documented in this encounterAvita [facility]11-24-2023 Miscellaneous Notes* Telephone Encounter - Reyes Brooks - 09/24/2023 10:25 AM EST Patient phones requesting refills as follows: Requested Prescriptions Pending Prescriptions Disp Refills insulin lispro (HUMALOG KWIKPEN INSULIN) 100 unit/mL 5 Each 11 Sig: Use as directed. Max dosage up to 50 units per day. insulin glargine (LANTUS SOLOSTAR U-100 INSULIN) 100 unit/mL (3 mL) 5 Each 11 Sig: Inject 50 Units subcutaneously once daily. In case of pump failure. * insulin lispro (HUMALOG KWIKPEN INSULIN) 100 unit/mL [Dr. Hernan Wallace] Patient Comment: There is a delay w the pump rx, will need pens for a few days Please review and advise. Reyes Brooks documented in this encounterAvita Health [facility]11-24-2023 Miscellaneous Notes* Telephone Encounter - Reyes Brooks - 09/24/2023 10:25 AM EST Patient phones requesting refills as follows: Requested Prescriptions Pending Prescriptions Disp Refills ondansetron orally disintegrating (ZOFRAN ODT) 4 mg disintegrating tablet 20 tablet 0 Sig: Take 1 tablet by mouth every 6 hours as needed for nausea/vomiting. Please review and advise. Reyes Brooks documented in this encounterAvita Health [facility]08-08-2023 History of Present illness Narrative* Olesya Calloway LPN - 06/08/2023 12:53 PM EDT Patient presents for b/o A1C per Dr Wallace. Denies any problems at this time. Tolerated procedure well. Olesya Calloway LPN documented in this encounterAvita [facility]07-07-2023 Miscellaneous Notes* Telephone Encounter - Sylvia Edwards Ma - 05/07/2023 11:22 AM EDT Patient calls in advising insulin pump is not working so needs pen needles to local [facility]. Patient also needs meter and lancets sent to [facility]. Rx pended correctly but requesting done soon since needing pen needles today to give injections Sylvia Edwards Ma documented in this encounterAvita Health [facility]06-09-2023 History of Present illness Narrative* Jeanna Mcqueen, SILVERIO - 04/09/2023 9:25 AM EDT 1. Type 1 diabetes mellitus without retinopathy (HCC) Risk of diabetic changes and vision loss can be minimized by tight control of blood sugar, blood pressure, and cholesterol levels. Educated patient to continue care with primary care doctor and/or bellstaff to maintain optimum levels as they are important to avoid ocular complications. Encouraged patient to call the office immediately with any changes to vision or visual concerns. Advised to not wait until the next scheduled exam. 2. History of laser refractive surgery Doing great - monitor Jeanna Mcqueen, OD April 09, 2023 9:25 AM documented in this encounterAv[facility] History of Present illness Narrative* Maya Rothman PA-C - 03/15/2023 9:09 AM EDT Chief Complaint Patient presents with: foot and ankle pain HPI Kristopher Walsh is a 32 year old female who presents here today for Above Complaints.. Patient states that she has had some ongoing n/t and pain in her feet/legs. Worsening over the past 2 weeks. Symptoms mostly at night when trying to go to bed but does have some symptoms during the day at times. She is a type 1 diabetic but pretty well managed. She does sometimes get a restless feel to them as well. Like she just needs them to crack. Past medical history, appointments, medications, allergies reviewed. Previous Medical History PAST MEDICAL HISTORY Diagnosis Date CAFE' AU LAIT/////DYSCHROMIA UNSPECIFIED 08/12/2007 Celiac disease Diabetes mellitus without mention of complication Diabetes mellitus Duodenitis without mention of hemorrhage 04/13/2012 Dysmenorrhea resolved Excessive or frequent menstruation Heavy periods resolved Irregular menstrual cycle Irregular periods resolved Myopia 06/07/2015 Myopia 09/17/2016 Other specified anemias Somatic dysfunction of lumbar region 02/15/2018 Somatic dysfunction of sacroiliac joint 02/15/2018 Previous Surgical History PAST SURGICAL HISTORY Procedure Laterality Date ESSURE 12/30/12 LASIK Bilateral 02/19/[address] ROCK Family History FAMILY HISTORY Problem Relation Age of Onset Cancer Mother Skin, squamous cell Cancer Father throat-squamous cell Heart Maternal Grandfather coronary artery disease Cataract Maternal Grandfather Heart Paternal Grandfather AL Patient Allergies ALLERGIES Allergen Reactions Gluten Other: See Comments Celiac disease Adhesive Rash, Itching Current Medications Current Outpatient Medications on File Prior to Visit Medication Sig insulin pump cart,automated,BT (OMNIPOD 5 G6 PODS, GEN 5,) crtg Inject 1 Each subcutaneously every 72 hours. buPROPion XL (WELLBUTRIN XL) 300 mg 24 hr tablet Take 1 tablet by mouth once daily. TAKE ALONG [id number] MG TAB FOR A TOTAL OF 450 MG DAILY (11/19/2022) levonorgestrel (MIRENA) 21 mcg/24 hours (8 yrs) 52 mg IUD 1 Each by INTRAUTERINE route as directed. glucagon (BAQSIMI) 3 mg/actuation nasal spray Use 1 [place] in the nose as needed for low blood sugar. May repeat after 15 minutes using a new device if there is no response. insulin pump cart,auto,BT-cntr (OMNIPOD 5 G6 INTRO KIT, GEN 5,) crtg Inject 1 Each subcutaneously once daily. insulin lispro (HUMALOG KWIKPEN INSULIN) 100 unit/mL Use as directed. Max dosage up to 50 units perday. insulin glargine (LANTUS SOLOSTAR U-100 INSULIN) 100 unit/mL (3 mL) Inject 50 Units subcutaneously once daily. In case of pump failure. insulin lispro (HUMALOG U-100 INSULIN) 100 unit/mL injection USE DIRECTED VIA INSULIN PUMP-MAX IS 50 UNITS DAILY ondansetron orally disintegrating (ZOFRAN ODT) 4 mg disintegrating tablet Take 1 tablet by mouth every 6 hours as needed for nausea/vomiting. Blood-Glucose Meter (LifestanderTOUCH VERIO SYSTEM) misc 1 Each as needed. Dispense One Kit - Verio Meter Kit Dx: Type 1 DM - Controlled E10.9 blood sugar diagnostic (BLOOD GLUCOSE TEST) test strip Test blood sugar(s) 5 times daily. Dx: Type 1 DM - Controlled E10.9 Insulin: Yes MULTIVITAMIN ORAL Take by mouth. omega-3 fatty acids(FISH OIL 500 MG CAP) Take one(1) capsule daily. buPROPion XL (WELLBUTRIN XL) 150 mg 24 hr tablet Take 1 tablet by mouth once daily. (Patient takingdifferently: Take 150 mg by mouth once daily. TAKE 1-150 MG TAB ALONG WITH 1-300 MG TAB FOR A TOTALOF 450 MG DAILY (11/19/2022)) No current facility-administered medications on file prior to visit. Social History Social History Tobacco Use Smoking status: Never Smokeless tobacco: Never Vaping Use Vaping Use: Never used Substance Use Topics Alcohol use: Yes Comment: occasional Drug use: No Review of Symptoms REVIEW OF SYSTEMS See hpi EXAM: BP 104/70 Pulse 68 Resp 16 Ht 165.1 cm (5' 5) Wt 59.4 kg (131 lb) LMP 12/28/2022 (Exact Date) SpO2 98% BMI 21.80 kg/m General Appearance: Well appearing, alert, in no acute distress, well-hydrated, well nourished.. Musculoskeletal: No joint swelling, deformity, or tenderness, FROM. NVI. No pain to palp. Feet:Shoes and socks removed, No deformities, ulcers, calluses, normal distal pulses, sensitive to 10 gm monofilament, and vibratory perception normal Health Maintenance List COVID-19 VACCINE(1) Never done PNEUMOCOCCAL(2 - PCV) due on 09/24/2010 DIABETIC FOOT EXAM due on 07/29/2022 DEPRESSION ASSESSMENT Never done DILATED RETINAL EXAM due on 01/21/2023 ANNUAL PCP TEAM CHRONIC DISEASE VISIT due on 03/12/2023 HBA1C due on 04/14/2023 URINE ALBUMIN:CREATININE RATIO due on 10/14/2023 LDL CHOLESTEROL due on 10/14/2023 PAP TESTING due on 06/05/2024 HPV TESTING due on 06/05/2024 DTAP,TDAP,TD(8 - Td or Tdap) due on 07/29/2031 HEPATITIS B Completed INFLUENZA Completed HEPATITIS C SCREENING Completed HIV SCREENING Completed Data reviewed ASSESSMENT/PLAN: 1. RLS (restless legs syndrome) - ICD9: 333.94, ICD10: G25.81 (primary diagnosis) Check labs. Discussed treatment options. Patient will consider. - TSH BLD - FOLATE SERUM - VITAMIN B12 BLOOD - VITAMIN D 25 HYDROXY 2. Numbness and tingling - ICD9: 782.0, ICD10: R20.0, R20.2 As above. - TSH BLD - FOLATE SERUM - VITAMIN B12 BLOOD - VITAMIN D 25 HYDROXY Maya Rothman PA-C documented in this encounterAvita [facility]04-10-2023 Miscellaneous Notes* Telephone Encounter - Silvana Dhaliwal LPN - 02/08/2023 10:39 AM EDT Patient has been identified by name and date of : Yes Requested Prescriptions Pending Prescriptions Disp Refills insulin pump cart,automated,BT (OMNIPOD 5 G6 PODS, GEN 5,) crtg 30 Each 3 Sig: Inject 1 Each subcutaneously every 72 hours. RX INSTRUCTIONS: [facility] needs [facility] order. Previous was filled incorrect and needs fixed. Please file for patient. Silvana Dhaliwal LPN documented in this encounterAvita [facility]03-31-2023 Miscellaneous Notes* Telephone Encounter - Nat Barbosa RN - 01/29/2023 12:26 PM EDT Patient has been identified by name and date of : Yes, Provider raquel Date 01/29/23 Time 1228p Patient phones for refill(s): Requested Prescriptions Pending Prescriptions Disp Refills insulin pump cart,automated,BT (OMNIPOD 5 G6 PODS, GEN 5,) crtg 90 Each 3 Sig: Inject 1 Each subcutaneously every 72 hours. Date of last office visit in primary care: Last 2 Encounter Wt Readings: Date: Wt: 12/29/2022 59.1 kg (130 lb 3.2 oz) 12/15/2022 58.1 kg (128 lb) Previous labs/tests for medication: Not applicable There was a mix up at the pharmacy with the last rx that was sent so patient is needing a new rx sent to [facility] Please advise. Thank you. Nat Barbosa RN documented in this encounterAvita [facility]03-13-2023 History of Present illness Narrative* Vasu De La Cruz MD - 01/11/2023 8:58 AM EDT Images from the original note were not included. Plastic Surgery Consultation Kristopher Walsh presents today for consultation for lower eyelid surgery and possible injectables. Denies any surgery or filler operator the past for underneath eyes. States she has puffiness and discoloration underneath eyes, has noticed 10 plus years ago and has gotten worse as she has gotten older. States she does not get sun burned easily. States she used vitamin C cream for face and makes her own facial soap. Denies smoking Occasional ETOH usage Type 1 diabetes, on insulin pump, well-controlled Meds and Allergies Reviewed and unchanged. PAIN: No: 0 on a scale of 0 to 10 Exam: Slight fullness lower eyelid bilaterally Right side with more fullness than left side More recess left cheek than right cheek pt has loose / lower eyelid laxity w snap test and lower eyelid at the position that is close for scleral showing ASSESSMENT/PLAN: encounter for cosmetic surgery Discussed other alternatives for non surgical management w fillers for cheeks. Patient is not interested in fillers at this time Discussed surgical interventions with benefits and risks. Option of retinA to thicken dermis and discussed skin care options with aesthetic peels and skin rejuvenation to tighten skin beneath eyelids Instructed patient to call the office with any questions or concerns Follow up with software requirements engineer for peels in future The patient is seen and examined by Vasu De La Cruz M.D. and the following reflects his service. Scribed by Farida Blanton RN. I agree with the Chief Complaint, ROS, and Past Histories independently gathered by the clinical system support developer and the remaining scribed note accurately describes my personal service to the patient. patient's condition reviewed and examined plan of care and options of management, complexity, risk benefit limitation potential complication,success /failure of management, expected result and recovery discussed I spent 30 minutes in the visit, with more than 50% of the total [id number] time of the visit in counseling / coordination of care. Vasu De La Cruz MD documented in this encounterAvita [facility]02-28-2023 Instructions* Patient Instructions* Michael Hernandez Cma - 12/29/2022 9:33 AM EST POST IUD INSTRUCTIONS You may have irregular bleeding during the first 3 months of use. You may have mild-severe cramping for the next 48 hours. You may use over the counter medication (Motrin, Tylenol) as needed. Your IUD must be removed or replaced based on the following table: IUD Type Removed or replaced within: Martha 3 years Kyleena 5 years Mirena 8 years Paragard 10 years Call my office for signs/symptoms of infection such as severe cramping, fever, or unusual bleeding. Check for string placement as instructed by your doctor. If you have any additional questions, please contact the office. documented in this encounterAvita [facility]02-28-2023 History of Present illness Narrative* Shalini Hawk APRN.CNM - 12/29/2022 9:27 AM EST Kristopher presents today for IUD insertion for dysmenorrhea. Patient's last menstrual period was 11/28/2022 (exact date). GC/chlamydia: Not done: no risk factors and/or patient declines screening test: n/a - Essure Side effects including irregular bleeding were discussed with the patient. The patient understands that it should be removed in 8 years or sooner if the patient desires a . IUD source: office provided IUD lot #: [id number] Exp date: 12/29/2024 UNIVERSAL PROTOCOL / SAFETY CHECKLIST Procedure to be Performed: Mirena IUD insertion Sign In: A Moment of CARE was completed. Personnel directly involved with the procedure wore the appropriate PPE (Personal Protective Equipment). No special equipment needed. Patient/Surrogate Stated/Verified: PATIENT VERIFIED(optional for EMERGENT procedures): Patient name, Date of , Relevant allergies, and The intended procedure Time Out Communication: Intended patient and procedure match the source documents. Consent documented and matches the intended procedure. Relevant labs, photos, and/or imaging studies have been reviewed. Correct side/site marked and visible. No medications required for procedure. No fire risk assessment and interventions applicable. Implant(s) inserted: Correct implant(s) confirmed including size and side. and Expiration date(s) reviewed. Sign Out: SIGN OUT (optional for EMERGENT procedures): No specimen collected. All instruments, equipment, possible retained foreign bodies accounted for. Post-procedure follow-up management communicated and Plan of Care Visit completed when applicable. The cervix was prepped with betadine. The uterus sounded to 9 cm and the uterus is Retroverted.. Using sterile technique, the Mirena IUD was inserted without difficulty and the string was cut to 3cm from the external os of the cervix. Patient tolerated procedure well. PLAN: Patient was advised to observe for signs and symptoms of infection including but not limited to fever, malodorous vaginal discharge and/or pain. The patient was told to check the string monthlyfor accurate placement. Bleeding expectations were reviewed. Follow up after next menses for string check. Shalini Hawk APRN.CNM documented in this encounterAvita [facility]01-19-2023 Instructions* Patient Instructions* Zoë Cool MD - 11/19/2022 3:49 PM EST Please read over information on POSITIVE ELI - the good news is your current presentation and otherblood work do not show features of rheumatoid arthritis, lupus, sjogren syndrome and other ELI related rheumatologic conditions. Your ELI could be positive because you have other autoimmune diseases like type 1 diabetes and celiac - if you start to experience signs/symptoms of joint swelling, photosensitive rashes, raynaud's phenomenon, worsening dry eyes/dry mouth I am happy to re-evaluate you at that time. For your fatigue I have entered a consult for integrative medicine - call [phone] to schedule. If you experience minor aches and pains related to the gym You can use as needed -tylenol arthritis strength (do not exceed 2500-3000mg per 24 hours) -as needed use of NSAID like aleve or motrin however caution for risks of stomach ulcers, gastritis, kidney injury, heart disease -topicals such as voltaren gel, capsaicin cream, asper cream (topical lidocaine/menthol), paraffin wax bath, salonpas patches, icy hot documented in this encounterAvita [facility]01-19-2023 History of Present illness Narrative* Zoë Cool MD - 11/19/2022 2:51 PM EST Images from the original note were not included. Rheumatology History & Physical Patient name: Kristopher Walsh Requesting provider: No att. providers found SUBJECTIVE Chief Complaint: +ELI History of Present Illness: Ms. Kristopher Walsh is a 32 year old female who has a past medical history of Celiac disease, DM1, Duodenitis, dysmenorrhea, Myopia, Somatic dysfunction of lumbar region and SI joint who presents for rheumatologic evaluation. Patient is from [place], [place]. Referred for +ELI PSHx: She has a past surgical history that includes essure (12/30/12) and lasik (Bilateral, 02/19/2022). Allergies: She is allergic to gluten and adhesive. Current Meds: bupropion xl, baqsimi, bupropion xl, omnipod 5 g6 intro kit (gen 5), omnipod 5 g6 pods (gen 5), insulin lispro, insulin glargine, prednisolone acetate, carboxymethylcellulose, moxifloxacin, insulin lispro, ondansetron orally disintegrating, blood-glucose meter, levonorgestrel, blood sugar diagnostic, multivitamin, and fish oil. Family History: family history includes Cancer in her father and mother; Cataract in her maternal grandfather; Heart in her maternal grandfather and paternal grandfather. Social History: She reports that she has never smoked. She has never used smokeless tobacco. She reports current alcohol use. She reports that she does not use drugs. Labs: CBC Latest Ref Rng & Units 10/14/2022 04/26/2017 02/21/2016 03/08/2014 WBC 3.70 - 11.00 k/uL 5.56 6.82 7.82 5.74 HEMOGLOBIN 11.5 - 15.5 g/dL 14.3 13.8 13.4 13.0 HEMOGLOBIN, AURA 11.5 - 15.5 g/dL - - - - HEMATOCRIT 36.0 - 46.0 % 42.3 43.2 40.4 38.5 PLATELETS 150 - 400 k/uL 314 292 292 252 ABS NEUT (ANC) 1.45 - 7.50 k/uL 3.38 4.11 4.53 - ABS NEUT, AURA 1.45 - 7.50 k/uL - - - - ABS LYMP, AURA 1.00 - 4.00 k/uL - - - - ABS LYMPH 1.00 - 4.00 k/uL 1.52 1.94 2.44 - CMP Latest Ref Rng & Units 10/14/2022 07/28/2022 08/05/2021 07/29/2021 SODIUM 136 - 144 mmol/L 140 140 138 139 SODIUM, AURA 132 - 148 mmol/L - - - - SODIUM, AURA 132 - 148 mmol/L - - - - POTASSIUM 3.7 - 5.1 mmol/L 4.2 4.3 4.3 4.1 POTASSIUM, AURA 3.5 - 5.0 mmol/L - - - - CHLORIDE 97 - 105 mmol/L 102 104 103 104 CHLORIDE, AURA 98 - 110 mmol/L - - - - CO2 22 - 30 mmol/L 26 26 25 25 CO2, AURA 23.0 - 32.0 mmol/L - - - - GLUCOSE 74 - 99 mg/dL 181(H) 82 55(L) 179(H) GLUCOSE (U), AURA NEGAT mg/dL - - - - GLUCOSE, AURA 65 - 100 mg/dL - - - - BUN 7 - 21 mg/dL 12 13 13 15 BUN, AURA 10 - 25 mg/dL - - - - CREATININE 0.58 - 0.96 mg/dL 0.86 0.79 0.92 1.26(H) CREATININE, AURA 0.7 - 1.4 mg/dL - - - - CALCIUM, AURA 8.5 - 10.5 mg/dL - - - - CALCIUM, TOTAL 8.5 - 10.2 mg/dL 9.8 9.7 9.5 9.2 AST 13 - 35 U/L 16 - - 20 AST, AURA 7 - 40 U/L - - - - ALT 7 - 38 U/L 20 - - 22 ALT, AURA 0 - 45 U/L - - - - ALKALINE PHOSPHATASE 34 - 123 U/L 59 - - 72 ESR, WSR Latest Ref Rng & Units 04/17/2020 WSR 0 - 20 mm/hr 2 CRP Latest Ref Rng & Units 04/17/2020 CRP <0.9 mg/dL <0.1 CK Latest Ref Rng & Units 12/16/2006 CK, AURA 21 - 215 U/L 73 RF and CCP Latest Ref Rng & Units 10/14/2022 04/17/2020 RHEUMATOID FACTOR <16 IU/mL <10 <10 Hepatitis Screen Latest Ref Rng & Units 11/14/2010 HBSAG NEGAT Negative TB Screen Latest Ref Rng & Units 08/30/2013 07/08/2012 09/08/2011 02/04/2009 TBGINT - No evidence of current or previous infection with Mycobacterium tuberculosis. No evidence of current or previous infection with Mycobacterium tuberculosis. No evidence of current or previous infection with Mycobacterium tuberculosis. - TBGRES NEGAT Negative Negative Negative - TBTEST 0 x 0 - 10 x 10 mm - - - 0mm Antibodies Latest Ref Rng & Units 10/14/2022 04/17/2020 04/26/2017 ELI Negative Positive(A) Positive(A) - ELI BY EIA, QUAL Negative Positive(A) - - ELI TITER - 1:640 1:80(A) - ELI PATTERN - Nuclear coarse speckled Speckled - DNA ANTIBODY W/CONFIRMATION <30 IU/mL <12 - - RHEUMATOLOGIST ANTIBODY QUAL Negative Negative - - SSA ANTIBODY QUAL Negative Negative - - CHRISTIANA-1 ANTIBODY, IGG <1.0 AI <0.2 - - CHRISTIANA 1 ANTIBODY QUAL Negative Negative - - RIBOSOMAL RHEUMATOLOGIST AB <1.0 AI <0.2 - - RIBOSOMAL RHEUMATOLOGIST QUAL Negative Negative - - ANTI-SSA <1.0 AI <0.2 - - ANTI-SSB <1.0 AI <0.2 - - ANTI-SM <1.0 AI <0.2 - - SM ANTIBODY Negative Negative - - SCL-70 AB QUAL Negative Negative - - SCL-70 ABS, EIA <1.0 AI <0.2 - - CENTROMERE AB <1.0 AI <0.2 - - CENTROMERE AB QUAL Negative Negative - - CHROMATIN AB <1.0 AI <0.2 - - CHROMATIN AB QUAL Negative Negative - - PT SEC 8.4 - 13.0 sec - - 11.5 PT INR 0.8 - 1.2 - - 1.1 PTT 23.0 - 32.4 sec - - 26.7 Urinalysis Latest Ref Rng & Units 08/05/2021 05/18/2016 06/24/2011 06/23/2011 PROTEIN, URINE Negative Negative neg Negative Neg PROTEIN (U), AURA NEGAT mg/dL - - - - RBC, URINE 0 - 3 /HPF 0-3 - Negative - RBC, URINE, AURA /hpf - - - - Labs: 10/22: ELI 1:640 nuclear coarse speckled (-)ANDREI; CBC WNL; sCr/LFT WNL 04/20: ESR/CRP WNL Imaging: XR R WRIST 2015: no acute fracture RHEUMATOLOGY EVALUATION 11/19/2022 Patient seen and examined - referred to rheumatology for +ELI. 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 Notes h/o fatigue - I should feel better for as well as I take care of myself and my nutrition Notes in the past she had h/o ELI 1:160 but never saw rheum before. Now her ELI is 1:640 and she was referred to rheumatology. H/o DM1 on insulin pump with continuous glucose monitoring. H/o celiac disease with strict dietary adherance with gluten free C/o fatigue generally feels like lacking in energy Had covid November and April 2022 - fatigue lingered since COVID. Brain fog, exhaustion. My get up and go got up and left Saw [place] TON Haynes with recent labs 10/22 normal/negative RF, TFTs, 25-OH Vitamin D andVitamin B12 WNL Rheumatologic ROS (-) joint swelling; +achey ankles often - partakes in heavy lifting at gym. (+) in bold; all rest are negative/denies history of: Chest pain, shortness of breath, history of pleural effusion or pericarditis, occasional canker sores once every few months; oral/nasal ulcers, recurrent epistaxis, recurrent sinusitis, photosensitivity, rash, history of DVT/PE/&or miscarriages, renal disease, seizures, dry eyes improved after LASIK last year, dry mouth, cervical lymphadenopathy or parotid gland swelling, raynaud's phenomenon, alopecia, psoriasis, history of iritis/uveitis or scleritis, nail pitting, dactylitis, history of sacroiliitis or inflammatory bowel disease, arm weakness in raising arms above head, leg weakness instanding up from a seated position, skin tightening, dysphagia, changes in vision, scalp tenderness, jaw claudication, stiffness in shoulders/hip girdle, auricular or nasal chondritis Answers submitted by the patient for this visit: Review of Systems Rheumatology (Submitted on 11/17/2022) Fever : No Recent Unintentional Weight Change: No Eye Pain: No Eye Redness: Yes Vision Disturbance: Yes Eye Dryness: Yes Nose Bleeds: No Sores in your Mouth: No Trouble Swallowing: No Dry Mouth: No Chest Pain: No Leg Swelling: No A Cough: No Shortness of Breath: No Pain with Breathing: No Heartburn: No Abdominal Pain: Yes Diarrhea: No [place] Stools: No Blood in Urine: No Pain or Burning with Urination: No Joint Pain or Stiffness: Yes Muscle Weakness: No Muscle Aches: No Joint Swelling: No Morning Stiffness in Joints: Yes A Rash: No Skin Color Changes: No Hair Loss: No Nail Changes: No Headaches: Yes Numbness: No Memory Loss: No Swollen Glands: Yes OBJECTIVE General: No acute distress. Eye: Pupils are equal, round and reactive to light, Extraocular movements are intact, Normal conjunctiva. HENT: Oral mucosa is moist, no oral ulcerations, no areas of alopecia appreciated Neck: Supple, Non-tender. No lymphadenopathy Respiratory: Lungs are clear to auscultation, Respirations are non-labored, Breath sounds are equal. Cardiovascular: Normal rate, Regular rhythm. Gastrointestinal: soft, non-tender, non-distended. Musculoskeletal: no synovitis on joint exam. Integumentary: Warm, Dry. No rash Neurologic: Alert, Oriented. Psychiatric: Cooperative. IMPRESSION & RECOMMENDATIONS Ms. Kristopher Walsh is a 32 year old female who has a past medical history of Celiac disease, DM1, Duodenitis, dysmenorrhea, Myopia, Somatic dysfunction of lumbar region and SI joint who presents for rheumatologic evaluation. Patient is from [place], [place]. Referred for +ELI 10/22: ELI 1:640 nuclear coarse speckled (-)ANDREI (-)RF; CBC WNL; sCr/LFT WNL 04/20: ESR/CRP WNL Pleasant 32 y/o F with medical h/o celiac disease, DM1 who presents for +ELI evaluation. Recent labs (-)ANDREI and clinically the majority of her ELI related rheumatologic ROS as above is unremarkable. Explained to patient her +ELI could be 2/2 h/o autoimmunity DM1/celiac disease. Currently lower clinical suspiscion for background ELI related rheumatologic connective tissue disease or inflammatory arthritis. Recommendations: Provided patient information on Positive ELI from ACR Counseled patient to RTC if she experiences signs/symptoms of worsening joint pain/joint swelling, photosensitive rashes, raynaud's phenomenon, worsening dry eyes/dry mouth Fatigue: referral placed to integrative medicine. For her MSK symptoms: -PRN -tylenol arthritis strength (do not exceed 2500-3000mg per 24 hours) -as needed use of NSAID like aleve or motrin however caution for risks of stomach ulcers, gastritis, kidney injury, heart disease -topicals such as voltaren gel, capsaicin cream, asper cream (topical lidocaine/menthol), paraffin wax bath, salonpas patches, icy hot I spent a total of 50 minutes on the date of the service which included preparing to see the patient, [id number] patient care, completing clinical documentation, obtaining and/or reviewing separately obtained history, performing a medically appropriate examination, counseling and educating the pat ient/family/caregiver, ordering medications, tests, or procedures, communicating results to the patient/family/caregiver and care coordination (not separately reported). Zoë Cool MD Rheumatology Staff documented in this encounterAvita Health System [facility] Hospital12-29-2022 Miscellaneous Notes* Telephone Encounter - Rashmi Peck RN - 10/29/2022 11:32 AM EST Called pt and explained that Arleth Haynes CNP only meant to order the ELI lab test, but must have ordered the panel instead. Per pt, Oh, that makes sense, because she said she would recheck my ELI because I asked her to. Updated pt that an order for Rheumatology/Immunology was placed for her based on elevated ELI results. Per pt, I just got a mychart message from them, so I will call and schedule. Tell Arleth thank you so much. * Telephone Encounter - Arleth Haynes APRN.CNP - 10/28/2022 3:41 PM EST I ordered just an ELI, likely selected wrong lab, as it included a panel. ELI is still elevated. Remainder of screening panel was normal. She would need to see rheumatology to further assess. I ordered repeat ELI as a courtesy as the patient wanted it rechecked. I told her during visit that I would defer to rheum/immunology if any abnormalities. CONSULT to rheum/immulology placed for patient. * Telephone Encounter - Rashmi Peck RN - 10/28/2022 9:39 AM EST Called and spoke with pt. Updated pt that all of her Endocrine labs (thyroid, A1C and Vitamin D) are normal. Per pt, I was wondering about my ELI. It was elevated 2 years ago and I have been having extremefatigue, so that is why Arleth ordered all of those other tests. Does she think I need to follow up with rheumatology or does she recommend anything else? Pended consult to rheumatology below, Please advise. * Telephone Encounter - Arleth Haynes APRN.CNP - 10/27/2022 4:12 PM EST Please forward to patient PCP. I do not order labs - looks as if immunology/rheumatology may have ordered? I do not know why lab signed my name to those. I do not interpret those labs. The labs I ordered for the patient were thyroid, vitamin d, A1C (Endo labs) Endo labs are normal! * Telephone Encounter - Gloria Godinez Ma - 10/27/2022 9:03 AM EST Patient asking again about lab results. Please respond by mychart. Gloria Godinez Ma * Telephone Encounter - Rashmi Peck RN - 10/23/2022 1:12 PM EST Pt had labs drawn on 10/14/2022 by Arleth Haynes CNP: Component Latest Ref Rng & Units 10/14/2022 WBC 3.70 - 11.00 k/uL 5.56 RBC 3.90 - 5.20 m/uL 4.48 Hemoglobin 11.5 - 15.5 g/dL 14.3 Hematocrit 36.0 - 46.0 % 42.3 MCV 80.0 - 100.0 fL 94.4 MCH 26.0 - 34.0 pg 31.9 MCHC 30.5 - 36.0 g/dL 33.8 RDW-CV 11.5 - 15.0 % 11.9 Platelet Count 150 - 400 k/uL 314 MPV 9.0 - 12.7 fL 11.0 Neut% % 60.8 Abs Neut (ANC) 1.45 - 7.50 k/uL 3.38 Lymph% % 27.3 Abs Lymph 1.00 - 4.00 k/uL 1.52 Asc[facility]% % 9.5 Abs Asc[facility] <0.87 k/uL 0.53 Eosin% % 1.1 Abs Eosin <0.46 k/uL 0.06 Baso% % 1.1 Abs Baso <0.11 k/uL 0.06 Immature Gran % % 0.2 IMMATURE GRANS (ABS) <0.10 k/uL <0.03 NRBC /100 WBC 0.0 Absolute nRBC <0.01 k/uL <0.01 DTYPE Auto Protein, Total 6.3 - 8.0 g/dL 6.6 Albumin 3.9 - 4.9 g/dL 4.9 Calcium 8.5 - 10.2 mg/dL 9.8 Bilirubin, Total 0.2 - 1.3 mg/dL 0.5 Alkaline Phosphatase 34 - 123 U/L 59 AST 13 - 35 U/L 16 ALT 7 - 38 U/L 20 Glucose 74 - 99 mg/dL 181 (H) BUN 7 - 21 mg/dL 12 Creatinine 0.58 - 0.96 mg/dL 0.86 Sodium 136 - 144 mmol/L 140 Potassium 3.7 - 5.1 mmol/L 4.2 Chloride 97 - 105 mmol/L 102 CO2 22 - 30 mmol/L 26 Anion Gap 9 - 18 mmol/L 12 eGFR >=60 mL/min/1.73m 91 Total Cholesterol, Nonfasting <200 mg/dL 176 Triglycerides, Nonfasting <150 mg/dL 44 HDL Cholesterol, Nonfasting >39 mg/dL 87 LDL Cholesterol, Nonfasting <100 mg/dL 80 Non HDL Cholesterol, Nonfasting <130 mg/dL 89 VLDL Cholesterol, Nonfasting <30 mg/dL 9 Total Chol/HDL Ratio, Nonfasting <5.10 mg/dL 2.02 LDL/HDL Ratio, Nonfasting <2.54 mg/dL 0.92 Creatinine, Ur Random (UCRR) 20.0 - 300.0 mg/dL 52.1 Albumin, Urine Random mg/L <12.0 Albumin/Creat Ratio <30 mg/g <23 ELI Negative Positive (A) ELI Pattern Nuclear coarse speckled ELI Titer 1:640 Hemoglobin A1C 4.3 - 5.6 % 5.8 (H) Estimated Average Glucose mg/dL 120 Scleroderma Ab Qual Negative Negative Scl-70 Abs, EIA <1.0 AI <0.2 CHRISTIANA 1 ANTIBODY QUAL Negative Negative Christiana 1 Antibody <1.0 AI <0.2 Ribosomal RHEUMATOLOGIST Qualitative Negative Negative Ribosomal RHEUMATOLOGIST Ab <1.0 AI <0.2 Chromatin Ab Qual Negative Negative Chromatin Ab <1.0 AI <0.2 Anti-SSB <1.0 AI <0.2 SSB Antibody Qual Negative Negative Sm Antibody Negative Negative Anti-Sm <1.0 AI <0.2 RHEUMATOLOGIST Antibody QUAL Negative Negative Anti-RHEUMATOLOGIST <1.0 AI 0.3 SSA Antibody Qual Negative Negative Anti-SSA <1.0 AI <0.2 CENTROMERE AB QUAL Negative Negative Centromere Ab <1.0 AI <0.2 TSH 0.270 - 4.200 mIU/L 1.630 Free T4 0.9 - 1.7 ng/dL 1.2 Microsomal Antibody <5.6 IU/mL 1.2 Thyroglobulin Ab <14.4 IU/mL 1.5 Vitamin B12 232 - 1,245 pg/mL 550 Vitamin D 25 Hydroxy 31.0 - 80.0 ng/mL 51.1 Rheumatoid Factor <16 IU/mL <10 ELI by EIA, Qual Negative Positive (A) DNA Antibody w/Confirmation <30 IU/mL <12 Pt sent Frazr message that was closed by someone on 10/17/2022. Pt was concerned about her ELI titer level going from 180 in 2019 to 640 in 2021. Please advise. * Telephone Encounter - Bertrand Wallace MD - 10/23/2022 1:00 PM EST Endo forwarded these labs to us. I believe looking at them they were ordered by optho? Does Kristopher know what they were looking for? Did she contact them? * Telephone Encounter - Bertrand Wallace MD - 10/23/2022 12:59 PM EST We did not order but will try and figure out who did. * Telephone Encounter - Arleth Haynes APRN.CNP - 10/23/2022 9:25 AM EST Routed to ENDO in error, these labs are not ours, please forward to PCP. * Telephone Encounter - Sylvia Edwards Ma - 10/22/2022 8:36 AM EST Patient sent mychart but appears staff closed and did not route. Please see below This value is high than it was in 2020 (180 vs 640) but all other labs look good.. what does that mean exactly? Thank you! Kristopher Becerra documented in this encounterAvita [facility]12-21-2022 Miscellaneous Notes* Telephone Encounter - Sirisha Talbot LPN - 10/21/2022 10:08 AM EST Pt notified of message. Sirisha Talbot LPN * Telephone Encounter - Bertrand Wallace MD - 10/20/2022 5:06 PM EST done * Telephone Encounter - Marielos Whitfield LPN - 10/20/2022 3:01 PM EST Patient states that she would expect it to occur maybe once ever 2 months, length of occurrence would be 1-2 days. She thinks getting sick with her DM is on average about once every 3 months. She states she just saw Mona in Endocrinology if you are wanting her to fill it out. * Telephone Encounter - Bertrand Wallace MD - 10/19/2022 8:14 PM EST Check with Kristopher. I am required to specify, how often expected to occur, how long per occurrence? Any idea how often she thinks happens when she is sick with her DM? * Telephone Encounter - Gloria Godinez Ma - 10/13/2022 5:13 PM EST Type of form: FMLA Form received via walk in When form is completed, give back to patient Form has been forwarded to Physician Desk: Dr. Madison Godinez Ma documented in this encounterAvita Health [facility]12-19-2022 Miscellaneous Notes* Telephone Encounter - Leslie Barney MA - 10/19/2022 10:28 AM EST Received my chart message sent to provider for review and to advise. Leslie Barney MA documented in this encounterAvita Health System [facility]12-19-2022 History of Present illness Narrative* Te Payton RPh - 10/19/2022 8:55 AM EST Refill Authorization Consent Kristopher Walsh was encountered by telephone to obtain consent for pharmacist managed refill authorization. Patient gives consent to the authorization of prescriptions by a pharmacist. Te Payton [facility] 10/19/2022 documented in this encounterAvita Health System [facility]12-15-2022 Miscellaneous Notes* Telephone Encounter - Sylvia Edwards Ma - 10/15/2022 11:59 AM EST Patient is requesting additional Wellbutrin 150 mg. Patient takes 300 mg but due to seasonal depression would like increase to 450 mg to see if it helps. If willing please send to [facility] delivery. Sylvia Edwards Ma documented in this encounterAvita Health System [facility]12-14-2022 History of Present illness Narrative* Arleth Haynes APRN.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 CLERK - 10/14/2022 9:15 AM EST OFFICE VISIT PROGRESS NOTE CC Kristopher Walsh is a 32 year old female who presents today for blood sugar review, insulin pump setting review. HPI PATIENT OF DR. 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 Patient makes adjustments to own insulin pump settings USING DEXCOM/OMNI POD Reports fatigue Some lower extremity pain (ankles/knees) Reports is taking Vit D intermittently 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 C, D Feels that she is fighting off something Hx of COVID twice this year Currently congested, coughing - has not rechecked at this time CURRENT DM MEDS OMNI POD GEN 5 insulin pump system w HUMALOG insulin (still using older OMNI POD - has not been using as closed loop yet, using up older OMNI pump supplies) SMBG Type of Monitor: Other Frequency of Monitoring: DEXCOM times a day BG pt recall, unable to download DEXCOM during OV BG Values: Breakfast: 99-110 Lunch: 90-115 Dinner: 90-115 Bed-time: 90-115 Values over past week: Highest 250; Lowest 90 Hypoglycemia: no Diet: Counts Carbs 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 still do aerobics/weight lifting DM REVIEW OF SYSTEMS Last Eye Exam : 12/2022 Last Podiatry Exam: declined/postponed Cardiorespiratory: negative, denies chest pain, pressure Claudication: no Dyslipidemia: No High Blood Pressure: No CURRENT LABS Component Latest Ref Rng & Units 03/12/2022 Hemoglobin A1C (POCT) 4.2 - 5.6 % 5.8 PAST MEDICAL HISTORY Diagnosis Date CAFE' [place]/////DYSCHROMIA UNSPECIFIED 08/12/2007 Celiac disease Diabetes mellitus without mention of complication Diabetes mellitus Duodenitis without mention of hemorrhage 04/13/2012 Dysmenorrhea resolved Excessive or frequent menstruation Heavy periods resolved Irregular menstrual cycle Irregular periods resolved Myopia 06/07/2015 Myopia 09/17/2016 Other specified anemias Somatic dysfunction of lumbar region 02/15/2018 Somatic dysfunction of sacroiliac joint 02/15/2018 PAST SURGICAL HISTORY Procedure Laterality Date ESSURE 12/30/12 LASIK Bilateral 02/19/[address] ROCK FAMILY HISTORY Problem Relation Age of Onset Cancer Mother Skin, squamous cell Cancer Father throat-squamous cell Heart Maternal Grandfather coronary artery disease Cataract Maternal Grandfather Heart Paternal Grandfather [place] Social History Tobacco Use Smoking status: Never Smokeless tobacco: Never Vaping Use Vaping Use: Never used Substance Use Topics Alcohol use: Yes Comment: occasional Drug use: No Current Outpatient Medications Medication Sig buPROPion XL (WELLBUTRIN XL) 300 mg 24 hr tablet Take 1 tablet by mouth once daily along with 75mg tablets insulin pump cart,auto,BT-cntr (OMNIPOD 5 G6 INTRO KIT, GEN 5,) crtg Inject 1 Each subcutaneously once daily. insulin pump cart,automated,BT (OMNIPOD 5 G6 PODS, GEN 5,) crtg Inject 10 Each subcutaneously every72 hours. insulin lispro (HUMALOG KWIKPEN INSULIN) 100 unit/mL Use as directed. Max dosage up to 50 units perday. insulin glargine (LANTUS SOLOSTAR U-100 INSULIN) 100 unit/mL (3 mL) Inject 50 Units subcutaneously once daily. In case of pump failure. prednisoLONE acetate (PRED FORTE, ECONOPRED PLUS) 1 % ophthalmic suspension Use 1 Drop in both eyesfour times daily. Use as directed carboxymethylcellulose (REFRESH PLUS) 0.5 % Use 1 Drop in both eyes as needed. USE DIRECTED moxifloxacin (VIGAMOX) 0.5 % ophthalmic solution Use 1 Drop in both eyes four times daily. 4 times daily as directed insulin lispro (HUMALOG U-100 INSULIN) 100 unit/mL injection USE DIRECTED VIA INSULIN PUMP-MAX IS 50 UNITS DAILY ondansetron orally disintegrating (ZOFRAN ODT) 4 mg disintegrating tablet Take 1 tablet by mouth every 6 hours as needed for nausea/vomiting. glucagon HCl (GLUCAGON, HCL, EMERGENCY KIT) 1 mg solr Use as directed Blood-Glucose Meter (ONETOUCH VERIO SYSTEM) misc 1 Each as needed. Dispense One Kit - Verio Meter Kit Dx: Type 1 DM - Controlled E10.9 glucagon (GLUCAGON EMERGENCY KIT, HUMAN,) 1 mg solr Inject 1 mg intramuscularly one time only for 1dose. levonorgestrel (MIRENA) 20 mcg/24 hr (5 years) IUD Inserted in office blood sugar diagnostic (BLOOD GLUCOSE TEST) test strip Test blood sugar(s) 5 times daily. Dx: Type 1 DM - Controlled E10.9 Insulin: Yes MULTIVITAMIN ORAL Take by mouth. omega-3 fatty acids(FISH OIL 500 MG CAP) Take one(1) capsule daily. No current facility-administered medications for this visit. ALLERGIES Allergen Reactions Adhesive Rash, Itching Gluten Other: See Comments Celiac disease REVIEW OF SYSTEMS - POSITIVES IN BOLD GENERAL:No weight loss, malaise or fevers HEENT:Negative for frequent or significant headaches, No changes in hearing or vision, no nose bleeds or other nasal problems NECK:Negative for lumps, goiter, pain and significant neck swelling RESPIRATORY: Negative for cough, hemoptysis, wheezing, COPD, dyspnea or shortness of breath CARDIOVASCULAR: Negative for chest pain, leg swelling, hypertension, CHF or palpitations PHYSICAL EXAMINATION: BP (P) 102/68 (BP Site: Left Arm, BP Position: Sitting, BP Cuff Size: Regular Adult) Pulse (P) 72 Wt (P) 59 kg (130 lb) LMP 07/08/2021 BMI (P) 22.19 kg/m GENERAL: alert and appropriate, in no distress and well-hydrated, well nourished SKIN: no rash noted HEAD: normocephalic, no abnormality or lesion noted EYES: PERRL NECK: full ROM, no cervical LNs noted ACANTHOSIS: none noted EXTREMITIES: normal NEUROLOGIC: no obvious deficit ASSESSMENT: (E10.9) Controlled diabetes mellitus type 1 without complications (HCC) (primary encounter diagnosis) Comment: very well controlled. Last OV was Nov 2020, patient will do labs on way out Manipulates her own pump settings. Can continue per current. Pt did not have PDM at OV and DEXCOM was shared with ANUPAMA and isidro pizano accessed during OV today for review. 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 F/U 6 months or as needed. Recommended diet: Low carbohydrate and Low saturated fat, low simple sugar, high fiber diet Exercise minimally 150 minutes per week, increase as tolerated. Adequate hydration - 1/2 body wgt in oz of water daily, unless fluid restriction applies. I instructed the patient to monitor blood sugars 4 times per day If blood sugars are persistently high or low, to call our office. Patient to continue to follow up with her PCP and with other consultants regarding her other medical problems. Plan: COMP METABOLIC PANEL, LIPID PANEL, NONFASTING, ALBUMIN/CREAT RATIO RND UR, HGB A1C (Z46.81) Insulin pump titration Comment: see above Plan: Arleth Haynes CNP documented in this encounterAvita Health [facility]11-29-2022 Miscellaneous Notes* Telephone Encounter - Marielos Whitfield LPN - 09/29/2022 4:18 PM EST Patient notified. 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 in aura documented in this encounterAvita Health [facility]10-28-2022 Miscellaneous Notes* P Outreach Note - Clover Bailon RN - 08/28/2022 3:46 PM EDT Enrolled in diabetes mellitus Program Earned full discount for 2021 MEDICATIONS PER RX DATABASE humalog kwikpen pump fialure lantus for pump failure Lispro (humalog unit(s)-100) for pump Adherent with medication refills YES Date Verified 06/05/22 Is member submitting receipts for Reimbursement Is Employee Health Plan primary Yes Diagnosis of Coronary Artery Disease No Last 3 Encounter BP Readings: Date: BP: 03/12/2022 112/62 09/15/2021 92/60 07/29/2021 122/78 LDL Cholesterol (mg/dL) Date Value 07/28/2022 71 04/17/2020 65 12/12/2018 53 12/20/2017 52 12/01/2016 64 12/29/2012 45 LDL Cholesterol, Nonfasting (mg/dL) Date Value 07/29/2021 54 No results found for: LDLCHOLDIR LDL:HDL RATIO Applies to members that are diet and Exercise controlled LDL:HDL Ratio Date Value Ref Range Status 07/28/2022 0.97 <2.54 Final Comment: Reference: 1. National Cholesterol Education Program ATP III Guideline At-A-Glance Quick Desk Reference: National Heart, Lung, and Blood [place]. National Institutes of Health. 2001: NIH Publication No. 01-3305. 2. An International Atherosclerosis Society position paper: global recommendations for the management of dyslipidemia: executive summary, Atherosclerosis. 2014: 232(2):410-413. Diabetic Screening Lab Results Component Value Date HBA1C 5.8 03/12/2022 HBA1C 6.0 07/29/2021 HBA1C 5.5 11/26/2020 HBA1C 5.5 04/15/2020 HBA1C 5.5 12/12/2018 HBA1C 6.3 12/20/2017 Last eye exam 01/21/22 Last foot exam 07/29/21 Last Urine Micro-albumin 07/29/21 documented in this encounterAvita Health [facility]10-19-2022 Miscellaneous Notes* Telephone Encounter - CARMELO Francis - 08/19/2022 12:49 PM EDT Patient has been identified by name and date of : Yes Pharmacy phones for refill(s): Requested Prescriptions Pending Prescriptions Disp Refills buPROPion XL (WELLBUTRIN XL) 300 mg 24 hr tablet 90 tablet 3 Sig: Take 1 tablet by mouth once daily along with 75mg tablets Date of last office visit in primary care: AISSATOU 03/12/2022 No appointments scheduled Last 2 Encounter Wt Readings: Date: Wt: 03/12/2022 59 kg (130 lb) 09/15/2021 57.3 kg (126 lb 6.4 oz) Please advise. Thank you. CARMELO Francis documented in this encounterAvita Health System [facility] Hospital10-06-2022 Miscellaneous Notes* Telephone Encounter - Gloria Godinez Ma - 08/06/2022 10:56 AM EDT Completed form sent * Telephone Encounter - Bertrand Wallace MD - 08/06/2022 9:30 AM EDT done * Telephone Encounter - Gloria Godinez Ma - 08/06/2022 8:29 AM EDT Type of form: Prior Authorization Form received via fax When form is completed, Fax form to [facility] Form has been forwarded to Physician Desk: Dr. MADISON Godinez Ma documented in this encounterAvita Health System [facility] Hospital09-08-2022 Miscellaneous Notes* Telephone Encounter - Silvana Dhaliwal LPN - 07/09/2022 1:56 PM EDT Asking for orders for lipid and urine albumin per care provider. documented in this encounterAvita Health System [facility] Hospital08-12-2022 Miscellaneous Notes* Telephone Encounter - Ashwini Vega RN - 06/12/2022 11:24 AM EDT Meseret with [employer] call to request most OV note in regards to Type 1 diabetes. Received A1C results but no OV note. Faxed to [phone] per request. Ashwini Vega RN documented in this encounterAvita Health [facility]08-11-2022 Miscellaneous Notes* Telephone Encounter - Gloria Godinez Ma - 06/11/2022 8:31 AM EDT The form was received, completed, and faxed back on 06/09/22. Gloria Godinez Ma * Telephone Encounter - Radha Concepcion RN - 06/10/2022 3:17 PM EDT Marcia with [employer] calling to report a detailed order form has been recently faxed to PCP office for review and completion for patient's CGM. For any questions, call [phone]. Thank you. documented in this encounterAvita Health System [facility] Hospital08-05-2022 Miscellaneous Notes* [facility] Outreach Note - Clover Bailon RN - 06/05/2022 4:04 PM EDT Enrolled in diabetes mellitus Program Earned full discount for 2021 MEDICATIONS PER RX DATABASE humalog kwikpen pump fialure lantus for pump failure Lispro (humalog unit(s)-100) for pump Adherent with medication refills YES Date Verified 06/05/22 Is member submitting receipts for Reimbursement Is Employee Health Plan primary Yes Diagnosis of Coronary Artery Disease No Last 3 Encounter BP Readings: Date: BP: 03/12/2022 112/62 09/15/2021 92/60 07/29/2021 122/78 LDL Cholesterol (mg/dL) Date Value 04/17/2020 65 12/12/2018 53 12/20/2017 52 12/01/2016 64 12/29/2012 45 LDL Cholesterol, Nonfasting (mg/dL) Date Value 07/29/2021 54 No results found for: LDLCHOLDIR LDL:HDL RATIO Applies to members that are diet and Exercise controlled LDL/HDL Ratio, Nonfasting Date Value Ref Range Status 07/29/2021 0.78 <2.54 mg/dL Final Comment: Reference: 1. National Cholesterol Education Program ATP III Guideline At-A-Glance Quick Desk Reference: National Heart, Lung, and Blood [place]. National Institutes of Health. 2001: NIH Publication No. 01-3305. 2. An International Atherosclerosis Society position paper: global recommendations for the management of dyslipidemia: executive summary, Atherosclerosis. 2014: 232(2):410-413. Diabetic Screening Lab Results Component Value Date HBA1C 5.8 03/12/2022 HBA1C 6.0 07/29/2021 HBA1C 5.5 11/26/2020 HBA1C 5.5 04/15/2020 HBA1C 5.5 12/12/2018 HBA1C 6.3 12/20/2017 Last eye exam 01/21/22 Last foot exam 07/29/21 Last Urine Micro-albumin 07/29/21 documented in this encounterAvita Health [facility]06-29-2022 Miscellaneous Notes* Telephone Encounter - Sylvia Edwards Ma - 04/29/2022 11:27 AM EDT Patient is requesting insulin pens sent to local [facility], patient uses during summer if pump stops working. Sylvia Edwards Ma documented in this encounterAvita Health System [facility] Hospital05-18-2022 Miscellaneous Notes* Telephone Encounter - Silvana Dhaliwal LPN - 03/18/2022 10:37 AM EDT Patient received supplies. * Telephone Encounter - Nely Miranda LPN - 03/05/2022 9:07 AM EDT Spoke with pt and she gets her DM supplies thru them ordered by Dr. Wallace. Contacted [employer] back and gave them above information and fax number for Dr. Wallace. Please watch for DM supplies order from [employer]. Nely Miranda LPN * Telephone Encounter - Nely Miranda LPN - 03/04/2022 2:38 PM EDT Scarlet with [employer] calling to fax form for DM supplies. They were not sure if itis Dr. Wallace or Dr. Dominique. Scarlet states it has been a while since pt has orders supplies. Will need to check with pt and call Scarlet back at phone # [phone] ref # [id number]. Pt is out of the office this afternoon 03-04-22. Back in the office tomorrow 03-05-22. Will check with her at that time. Nely Miranda LPN documented in this encounterAvita Health System [facility] Hospital05-12-2022 History of Present illness Narrative* Bertrand Wallace MD - 03/12/2022 8:09 AM EDT Patient presents with: Diabetes HPI: Patient presents today for office visit for follow up. DM: overdue to follow with endo. Sugars have been good. No severe hypoglycemic spells. Rare elevated sugars when ill. Has gained small amount of weight on purpose. GASTROENTEROLOGY:no issues with celiac disease PSYCH: emotionally is doing well. Component Latest Ref Rng & Units 07/29/2021 08/05/2021 Protein, Total 6.3 - 8.0 g/dL 6.3 Albumin 3.9 - 4.9 g/dL 4.5 Calcium 8.5 - 10.2 mg/dL 9.2 9.5 Bilirubin, Total 0.2 - 1.3 mg/dL 0.2 Alkaline Phosphatase 34 - 123 U/L 72 AST 13 - 35 U/L 20 Glucose 74 - 99 mg/dL 179 (H) 55 (L) BUN 7 - 21 mg/dL 15 13 Creatinine 0.58 - 0.96 mg/dL 1.26 (H) 0.92 Sodium 136 - 144 mmol/L 139 138 Potassium 3.7 - 5.1 mmol/L 4.1 4.3 Chloride 97 - 105 mmol/L 104 103 CO2 22 - 30 mmol/L 25 25 Anion Gap 9 - 18 mmol/L 10 10 ALT 7 - 38 U/L 22 eGFR- 59 >60 eGFR-All Other Races . 49 >60 Color Yellow Straw (A) Clarity Clear Clear Glucose, Urine Negative mg/dL Negative Bilirubin, Urine Negative Negative Ketones, Urine Negative Negative Specific [place], Ur 1.005 - 1.030 1.005 Hemoglobin/Blood,Ur Negative Negative pH, Urine 5.0 - 8.0 7.0 Protein, Urine Negative Negative Urobilinogen Negative E.U./dL Negative Nitrites Negative Negative Leukest Negative Negative Comment SEE COMMENT Urine Galo Comment SEE COMMENT WBC, Urine 0 - 5 /HPF 0-5 RBC, Urine 0 - 3 /HPF 0-3 Epithelial Cells /HPF SEE COMMENT Total Cholesterol, Nonfasting <200 mg/dL 131 Triglycerides, Nonfasting <150 mg/dL 38 HDL Cholesterol, Nonfasting >39 mg/dL 69 LDL Cholesterol, Nonfasting <100 mg/dL 54 Non HDL Cholesterol, Nonfasting <130 mg/dL 62 VLDL Cholesterol, Nonfasting <30 mg/dL 8 Total Chol/HDL Ratio, Nonfasting <5.10 mg/dL 1.90 LDL/HDL Ratio, Nonfasting <2.54 mg/dL 0.78 Creatinine, Ur Random (UCRR) 20 - 300 mg/dL 81.5 Albumin, Urine Random mg/L <12.0 Albumin/Creat Ratio <30 mg/g Not calculated Hemoglobin A1C 4.3 - 5.6 % 6.0 (H) Estimated Average Glucose mg/dL 126 TSH 0.270 - 4.200 uU/mL 1.400 MEDICATIONS: Current Outpatient Medications Medication Sig insulin lispro (HUMALOG U-100 INSULIN) 100 unit/mL injection USE DIRECTED VIA INSULIN PUMP-MAX IS 50 UNITS DAILY buPROPion XL (WELLBUTRIN XL) 300 mg 24 hr tablet Take 1 tablet by mouth once daily along with 75mg tablets levonorgestrel (MIRENA) 20 mcg/24 hr (5 years) IUD Inserted in office prednisoLONE acetate (PRED FORTE, ECONOPRED PLUS) 1 % ophthalmic suspension Use 1 Drop in both eyesfour times daily. Use as directed carboxymethylcellulose (REFRESH PLUS) 0.5 % Use 1 Drop in both eyes as needed. USE DIRECTED moxifloxacin (VIGAMOX) 0.5 % ophthalmic solution Use 1 Drop in both eyes four times daily. 4 times daily as directed ondansetron orally disintegrating (ZOFRAN ODT) 4 mg disintegrating tablet Take 1 tablet by mouth every 6 hours as needed for nausea/vomiting. glucagon HCl (GLUCAGON, HCL, EMERGENCY KIT) 1 mg solr Use as directed insulin lispro (HUMALOG KWIKPEN INSULIN) 100 unit/mL Use as directed. Max dosage up to 50 units perday. insulin glargine (LANTUS SOLOSTAR U-100 INSULIN) 100 unit/mL (3 mL) Inject 50 Units subcutaneously once daily. In case of pump failure. Blood-Glucose Meter ([employer] VERIO SYSTEM) misc 1 Each as needed. Dispense One Kit - Verio Meter Kit Dx: Type 1 DM - Controlled E10.9 glucagon (GLUCAGON EMERGENCY KIT, HUMAN,) 1 mg solr Inject 1 mg intramuscularly one time only for 1dose. blood sugar diagnostic (BLOOD GLUCOSE TEST) test strip Test blood sugar(s) 5 times daily. Dx: Type 1 DM - Controlled E10.9 Insulin: Yes MULTIVITAMIN ORAL Take by mouth. omega-3 fatty acids(FISH OIL 500 MG CAP) Take one(1) capsule daily. No current facility-administered medications for this visit. ALLERGIES: ALLERGIES Allergen Reactions Adhesive Rash, Itching Gluten Other: See Comments Celiac disease PAST MEDICAL HISTORY Diagnosis Date CAFE' AU LAIT/////DYSCHROMIA UNSPECIFIED 08/12/2007 Celiac disease Diabetes mellitus without mention of complication Diabetes mellitus Duodenitis without mention of hemorrhage 04/13/2012 Dysmenorrhea resolved Excessive or frequent menstruation Heavy periods resolved Irregular menstrual cycle Irregular periods resolved Myopia 06/07/2015 Myopia 09/17/2016 Other specified anemias Somatic dysfunction of lumbar region 02/15/2018 Somatic dysfunction of sacroiliac joint 02/15/2018 PAST SURGICAL HISTORY Procedure Laterality Date ESSURE 12/30/12 LASIK Bilateral 02/19/[address] ROCK FAMILY HISTORY Problem Relation Age of Onset Cancer Mother Skin, squamous cell Cancer Father throat-squamous cell Heart Maternal Grandfather coronary artery disease Cataract Maternal Grandfather Heart Paternal Grandfather [place] Social History Tobacco Use Smoking status: Never Smoker Smokeless tobacco: Never Used Vaping Use Vaping Use: Never used Substance Use Topics Alcohol use: Yes Comment: occasional Drug use: No Reviewed current medications, allergies, past medical history, surgical history, family history andsocial history today. REVIEW OF SYSTEMS All other reviewed and negative other than HPI. HEALTH MAINTENANCE: Reviewed health maintenance issues today HBA1C due on 01/26/2022 VITALS: BP 112/62 Pulse 72 Wt 59 kg (130 lb) LMP 07/08/2021 BMI 22.19 kg/m Last 4 Encounter Wt Readings: Date: Wt: 03/12/2022 59 kg (130 lb) 09/15/2021 57.3 kg (126 lb 6.4 oz) 07/29/2021 57.2 kg (126 lb) 07/14/2021 56.7 kg (125 lb) PHYSICAL EXAMINATION: General appearance: Well appearing, alert, in no acute distress, well-hydrated, well nourished. Skin: Skin color, texture, turgor normal, no suspicious rashes or lesions Head: Normocephalic, no masses, lesions, tenderness or abnormalities Neck: Supple, no adenopathy; thyroid symmetric, normal size, no bruits Back: Normal exam Lungs: Lungs clear to auscultation. No wheezing, rhonchi, rales Heart: RRR without murmur, gallop, or rubs. No ectopy Abdomen: Normal abdominal exam, Abdomen soft, non-tender. Bowel sounds normal. No masses, organomegaly Extremities: No deformities, edema, skin discoloration, clubbing or cyanosis. Good capillary refill. ASSESSMENT/PLAN: 1. Type 1 diabetes mellitus (HCC) - ICD9: 250.01, ICD10: E10.9 (primary diagnosis) Controlled. - Continue current medications - HEMOGLOBIN A1C (POC) 2. Celiac disease - ICD9: 579.0, ICD10: K90.0 -continue to follow up. Watch diet. 3. Adjustment reaction with anxiety and depression - ICD9: 309.28, ICD10: F43.23 - doing well. 4. Insulin pump in place - ICD9: V45.85, ICD10: Z96.41 - no issues. Bertrand Wallace RTO in six months and prn. [facility] Miscellaneous Notes* Telephone Encounter - Maribell Glez MA - 03/05/2022 10:02 AM EDT Received forms to be completed for CGM, Insulin pump and Infusion supplies. Forms need information from the last 6 months. We can not complete these forms because patient last visit was on: 11/26/2020. [employer] was notified. documented in this encounter[facility]04[facility]22[facility] History of Present illness Narrative* Joe Jerome, SILVERIO - 02/20/2022 6:30 PM EDT S/P 1 day LASIK DVA OU Doing well Pred Forte and Moxifloxacin 0.5% Four times a day One more week then stop. If patient continues to do well, return for next follow up in 3 months. -may return as needed at any time prior Reviewed post operative instructions with patient: -continue with eye drops as directed by Surgeon -wear eye mask for napping and sleeping for the first 3 days -no eye rubbing -no swimming or hot tubs for the first 2 weeks -no make up for the first week post op -continue to use Preservative Free Artifical Tears frequently -stressed importance of return as scheduled for next follow up to ensure patient has achieved visual goals documented in this encounter[facility]04[facility]22 History of Present illness Narrative* FRANKLIN Chao - 02/19/2022 8:57 AM EDT LASIK DVA OU Surgery consent signed See procedure record BY NORMA ROCK MD documented in this encounterAv[facility] History of Present illness Narrative* Norma Rock MD - 01/21/2022 1:06 PM EDT Myopia with minimal Astigmatism both eyes. Tomography shows normal curvature and adequate central and regional thickness both eyes. Patient is a candidate for refractive surgery. Disc options including laser in situ keratomileusis (LASIK), Photorefractive keratectomy (PRK), andSMILE - patient elects laser in situ keratomileusis (LASIK) OU Plan: Fs-LASIK OU with possible Contoura Target: Distance BOTH EYES I have confirmed and edited as necessary the relevant ophthalmic history, ROS, and the neuro exam findings as obtained by others. I have seen and examined Kristopher Lion Walsh. I have discussed the case andthe management of this patient's care with the Resident/Fellow, if applicable. I also have reviewedand agree with the assessment and plan as stated above and agree with all of its relevant components. Mason Rock MD documented in this encounterAv[facility]04-14-[facility]21 History of Present illness Narrative* Jg Falcon Tech (Rt) - 02/12/2021 4:20 PM EDT Radiology Service Progress Note PATIENT NAME: Kristopher Walsh DATE OF SERVICE: February 12, 2021 TIME: 4:31 PM PATIENT IDENTITY VERIFICATION COMPLETED USING TWO (2) IDENTIFIERS: Name and Date of confirmedby patient verbally. FALL SCREENING: Has the patient had 2 falls in the last year or 1 fall with injury or currently using an Ambulatory Assistive Device (Walker, Cane, Wheelchair, Crutches, etc.)? No PATIENT GENDER DATA: Female. status: : No status: NO. PATIENT RELEVANT IMPLANT DATA REVIEWED: Not Applicable RADIOLOGY DEPARTMENT: General X-ray: Exam(s) Completed: Chest X-Ray PERIPHERAL IV DATA: Not applicable SIGNED BY: RT Wes February 12, 2021 4:31 PM documented in this encounterAv[facility]17-[facility] History of Past illness Narrative* Problem Noted Date Resolved Date Somatic dysfunction of lumbar region 02/15/2018 03/20/2019 Somatic dysfunction of sacroiliac joint 02/16/20 18 03/20/2019 Myopia 09/17/2016 03/20/2019 Insulin pump titration 10/08/2015 7 documented as of this encounter (statuses as of 01/21/2022) [facility] History of Past illness Narrative* Problem Noted Date Resolved Date Somatic dysfunction of lumbar region 02/15/2018 03/20/2019 Somatic dysfunction of sacroiliac joint 02/16/20 18 03/20/2019 Myopia 09/17/2016 03/20/2019 Insulin pump titration 10/08/2015 7 documented as of this encounter (statuses as of 02/19/2022) [facility] of Past illness Narrative* Problem Noted Date Resolved Date Somatic dysfunction of lumbar region 02/15/2018 03/20/2019 Somatic dysfunction of sacroiliac joint 02/16/20 18 03/20/2019 Myopia 09/17/2016 03/20/2019 Insulin pump titration 10/08/2015 7 documented as of this encounter (statuses as of 02/20/2022) [address]17-2018 History of Past illness Narrative* Problem Noted Date Resolved Date Somatic dysfunction of lumbar region 02/15/2018 03/20/2019 Somatic dysfunction of sacroiliac joint 02/16/20 18 03/20/2019 Myopia 09/17/2016 03/20/2019 Insulin pump titration 10/08/2015 7 documented as of this encounter (statuses as of 03/05/2022) [address]17-2018 History of Past illness Narrative* Problem Noted Date Resolved Date Somatic dysfunction of lumbar region 02/15/2018 03/20/2019 Somatic dysfunction of sacroiliac joint 02/16/20 18 03/20/2019 Myopia 09/17/2016 03/20/2019 Insulin pump titration 10/08/2015 7 documented as of this encounter (statuses as of 03/12/2022) [address]17-2018 History of Past illness Narrative* Problem Noted Date Resolved Date Somatic dysfunction of lumbar region 02/15/2018 03/20/2019 Somatic dysfunction of sacroiliac joint 02/16/20 18 03/20/2019 Myopia 09/17/2016 03/20/2019 Insulin pump titration 10/08/2015 7 documented as of this encounter (statuses as of 03/18/2022) [address]17-2018 History of Past illness Narrative* Problem Noted Date Resolved Date Somatic dysfunction of lumbar region 02/15/2018 03/20/2019 Somatic dysfunction of sacroiliac joint 02/16/20 18 03/20/2019 Myopia 09/17/2016 03/20/2019 Insulin pump titration 10/08/2015 7 documented as of this encounter (statuses as of 04/29/2022) [address]17-2018 History of Past illness Narrative* Problem Noted Date Resolved Date Somatic dysfunction of lumbar region 02/15/2018 03/20/2019 Somatic dysfunction of sacroiliac joint 02/16/20 18 03/20/2019 Myopia 09/17/2016 03/20/2019 Insulin pump titration 10/08/2015 7 documented as of this encounter (statuses as of 06/05/2022) [address]17-2018 History of Past illness Narrative* Problem Noted Date Resolved Date Somatic dysfunction of lumbar region 02/15/2018 03/20/2019 Somatic dysfunction of sacroiliac joint 02/16/20 18 03/20/2019 Myopia 09/17/2016 03/20/2019 Insulin pump titration 10/08/2015 7 documented as of this encounter (statuses as of 06/11/2022) [address] History of Past illness Narrative* Problem Noted Date Resolved Date Somatic dysfunction of lumbar region 02/15/2018 03/20/2019 Somatic dysfunction of sacroiliac joint 02/16/20 18 03/20/2019 Myopia 09/17/2016 03/20/2019 Insulin pump titration 10/08/2015 7 documented as of this encounter (statuses as of 06/12/2022) [address] History of Past illness Narrative* Problem Noted Date Resolved Date Somatic dysfunction of lumbar region 02/15/2018 03/20/2019 Somatic dysfunction of sacroiliac joint 02/16/20 18 03/20/2019 Myopia 09/17/2016 03/20/2019 Insulin pump titration 10/08/2015 7 documented as of this encounter (statuses as of 07/09/2022) [address] History of Past illness Narrative* Problem Noted Date Resolved Date Somatic dysfunction of lumbar region 02/15/2018 03/20/2019 Somatic dysfunction of sacroiliac joint 02/16/20 18 03/20/2019 Myopia 09/17/2016 03/20/2019 Insulin pump titration 10/08/2015 7 documented as of this encounter (statuses as of 08/06/2022) [address] History of Past illness Narrative* Problem Noted Date Resolved Date Somatic dysfunction of lumbar region 02/15/2018 03/20/2019 Somatic dysfunction of sacroiliac joint 02/16/20 18 03/20/2019 Myopia 09/17/2016 03/20/2019 Insulin pump titration 10/08/2015 7 documented as of this encounter (statuses as of 08/19/2022) [place] [address] History of Past illness Narrative* Problem Noted Date Resolved Date Somatic dysfunction of lumbar region 02/15/2018 03/20/2019 Somatic dysfunction of sacroiliac joint 02/16/20 18 03/20/2019 Myopia 09/17/2016 03/20/2019 Insulin pump titration 10/08/2015 7 documented as of this encounter (statuses as of 08/28/2022) [place] [address] History of Past illness Narrative* Problem Noted Date Resolved Date Somatic dysfunction of lumbar region 02/15/2018 03/20/2019 Somatic dysfunction of sacroiliac joint 02/16/20 18 03/20/2019 Myopia 09/17/2016 03/20/2019 Insulin pump titration 10/08/2015 7 documented as of this encounter (statuses as of 09/29/2022) [place] [address] History of Past illness Narrative* Problem Noted Date Resolved Date Somatic dysfunction of lumbar region 02/15/2018 03/20/2019 Somatic dysfunction of sacroiliac joint 02/16/20 18 03/20/2019 Myopia 09/17/2016 03/20/2019 Insulin pump titration 10/08/2015 7 documented as of this encounter (statuses as of 10/14/2022) [place] [address] History of Past illness Narrative* Problem Noted Date Resolved Date Somatic dysfunction of lumbar region 02/15/2018 03/20/2019 Somatic dysfunction of sacroiliac joint 02/16/20 18 03/20/2019 Myopia 09/17/2016 03/20/2019 Insulin pump titration 10/08/2015 7 documented as of this encounter (statuses as of 10/15/2022) [place] [address] History of Past illness Narrative* Problem Noted Date Resolved Date Somatic dysfunction of lumbar region 02/15/2018 03/20/2019 Somatic dysfunction of sacroiliac joint 02/16/20 18 03/20/2019 Myopia 09/17/2016 03/20/2019 Insulin pump titration 10/08/2015 7 documented as of this encounter (statuses as of 10/19/2022) [address]17-2018 History of Past illness Narrative* Problem Noted Date Resolved Date Somatic dysfunction of lumbar region 02/15/2018 03/20/2019 Somatic dysfunction of sacroiliac joint 02/16/20 18 03/20/2019 Myopia 09/17/2016 03/20/2019 Insulin pump titration 10/08/2015 7 documented as of this encounter (statuses as of 10/19/2022) [address] History of Past illness Narrative* Problem Noted Date Resolved Date Somatic dysfunction of lumbar region 02/15/2018 03/20/2019 Somatic dysfunction of sacroiliac joint 02/16/20 18 03/20/2019 Myopia 09/17/2016 03/20/2019 Insulin pump titration 10/08/2015 7 documented as of this encounter (statuses as of 10/21/2022) [address] History of Past illness Narrative* Problem Noted Date Resolved Date Somatic dysfunction of lumbar region 02/15/2018 03/20/2019 Somatic dysfunction of sacroiliac joint 02/16/20 18 03/20/2019 Myopia 09/17/2016 03/20/2019 Insulin pump titration 10/08/2015 7 documented as of this encounter (statuses as of 11/04/2022) [place] [address] History of Past illness Narrative* Problem Noted Date Resolved Date Somatic dysfunction of lumbar region 02/15/2018 03/20/2019 Somatic dysfunction of sacroiliac joint 02/16/20 18 03/20/2019 Myopia 09/17/2016 03/20/2019 Insulin pump titration 10/08/2015 7 documented as of this encounter (statuses as of 11/29/2022) [address] History of Past illness Narrative* Problem Noted Date Resolved Date Somatic dysfunction of lumbar region 02/15/2018 03/20/2019 Somatic dysfunction of sacroiliac joint 02/16/20 18 03/20/2019 Myopia 09/17/2016 03/20/2019 Insulin pump titration 10/08/2015 7 documented as of this encounter (statuses as of 12/28/2022) [address] History of Past illness Narrative* Problem Noted Date Resolved Date Somatic dysfunction of lumbar region 02/15/2018 03/20/2019 Somatic dysfunction of sacroiliac joint 02/16/20 18 03/20/2019 Myopia 09/17/2016 03/20/2019 Insulin pump titration 10/08/2015 7 documented as of this encounter (statuses as of 12/29/2022) [address]17-2018 History of Past illness Narrative* Problem Noted Date Resolved Date Somatic dysfunction of lumbar region 02/15/2018 03/20/2019 Somatic dysfunction of sacroiliac joint 02/16/20 18 03/20/2019 Myopia 09/17/2016 03/20/2019 Insulin pump titration 10/08/2015 7 documented as of this encounter (statuses as of 01/18/2023) [address]17-2018 History of Past illness Narrative* Problem Noted Date Resolved Date Somatic dysfunction of lumbar region 02/15/2018 03/20/2019 Somatic dysfunction of sacroiliac joint 02/16/20 18 03/20/2019 Myopia 09/17/2016 03/20/2019 Insulin pump titration 10/08/2015 7 documented as of this encounter (statuses as of 01/30/2023) [address]17-2018 History of Past illness Narrative* Problem Noted Date Resolved Date Somatic dysfunction of lumbar region 02/15/2018 03/20/2019 Somatic dysfunction of sacroiliac joint 02/16/20 18 03/20/2019 Myopia 09/17/2016 03/20/2019 Insulin pump titration 10/08/2015 7 documented as of this encounter (statuses as of 02/08/2023) [address]17-2018 History of Past illness Narrative* Problem Noted Date Resolved Date Somatic dysfunction of lumbar region 02/15/2018 03/20/2019 Somatic dysfunction of sacroiliac joint 02/16/20 18 03/20/2019 Myopia 09/17/2016 03/20/2019 Insulin pump titration 10/08/2015 7 documented as of this encounter (statuses as of 03/15/2023) [address]17-2018 History of Past illness Narrative* Problem Noted Date Resolved Date Somatic dysfunction of lumbar region 02/15/2018 03/20/2019 Somatic dysfunction of sacroiliac joint 02/16/20 18 03/20/2019 Myopia 09/17/2016 03/20/2019 Insulin pump titration 10/08/2015 7 documented as of this encounter (statuses as of 04/09/2023) [address] History of Past illness Narrative* Problem Noted Date Resolved Date Somatic dysfunction of lumbar region 02/15/2018 03/20/2019 Somatic dysfunction of sacroiliac joint 02/16/2003/20/2019 Myopia 09/17/2016 03/20/2019 Insulin pump titration 10/08/2015 7 documented as of this encounter (statuses as of 05/07/2023) [address] History of Past illness Narrative* Problem Noted Date Diagnosed Date Resolved Date Somatic dysfunction of lumbar region 02/15/2018 03/20/2019 Somatic dysfunction of sacroiliac joint 02/15/2018 03/20/2019 Myopia 09/17/2016 03/20/2019 Insulin pump titration 10/08/201504/26 documented as of this encounter (statuses as of 06/08/2023) [address] History of Past illness Narrative* Problem Noted Date Diagnosed Date Resolved Date Somatic dysfunction of lumbar region 02/15/2018 03/20/2019 Somatic dysfunction of sacroiliac joint 02/15/2018 03/20/2019 Myopia 09/17/2016 03/20/2019 Insulin pump titration 10/08/201504/26 documented as of this encounter (statuses as of 08/06/2023) [address] History of Past illness Narrative* Problem Noted Date Diagnosed Date Resolved Date Somatic dysfunction of lumbar region 02/15/2018 03/20/2019 Somatic dysfunction of sacroiliac joint 02/15/2018 03/20/2019 Myopia 09/17/2016 03/20/2019 Insulin pump titration 10/08/201504/26 documented as of this encounter (statuses as of 09/24/2023) [address] History of Past illness Narrative* Problem Noted Date Diagnosed Date Resolved Date Somatic dysfunction of lumbar region 02/15/2018 03/20/2019 Somatic dysfunction of sacroiliac joint 02/15/2018 03/20/2019 Myopia 09/17/2016 03/20/2019 Insulin pump titration 10/08/201504/26 documented as of this encounter (statuses as of 09/24/2023) [place] [address] History of Past illness Narrative* Problem Noted Date Diagnosed Date Resolved Date Somatic dysfunction of lumbar region 02/15/2018 03/20/2019 Somatic dysfunction of sacroiliac joint 02/15/2018 03/20/2019 Myopia 09/17/2016 03/20/2019 Insulin pump titration 10/08/201504/26 documented as of this encounter (statuses as of 10/05/2023) [place] [address] History of Past illness Narrative* Problem Noted Date Diagnosed Date Resolved Date Somatic dysfunction of lumbar region 02/15/2018 03/20/2019 Somatic dysfunction of sacroiliac joint 02/15/2018 03/20/2019 Myopia 09/17/2016 03/20/2019 Insulin pump titration 10/08/201504/26 documented as of this encounter (statuses as of 12/31/2023) [place] [address] History of Past illness Narrative* Problem Noted Date Diagnosed Date Resolved Date Somatic dysfunction of lumbar region 02/15/2018 03/20/2019 Somatic dysfunction of sacroiliac joint 02/15/2018 03/20/2019 Myopia 09/17/2016 03/20/2019 Insulin pump titration 10/08/201504/26 documented as of this encounter (statuses as of 01/31/2024) [place] [address] History of Past illness Narrative* Problem Noted Date Diagnosed Date Resolved Date Somatic dysfunction of lumbar region 02/15/2018 03/20/2019 Somatic dysfunction of sacroiliac joint 02/15/2018 03/20/2019 Myopia 09/17/2016 03/20/2019 Insulin pump titration 10/08/201504/26 documented as of this encounter (statuses as of 02/01/2024) [place] [address] History of Past illness Narrative* Problem Noted Date Diagnosed Date Resolved Date Somatic dysfunction of lumbar region 02/15/2018 03/20/2019 Somatic dysfunction of sacroiliac joint 02/15/2018 03/20/2019 Myopia 09/17/2016 03/20/2019 Insulin pump titration 10/08/201504/26 documented as of this encounter (statuses as of 02/15/2024) [facility] note Author Kevin Vazquez [facility] Note Date/Time June 12, 2025 9: 15am [facility] Medical Records Department [address] [place] [address] Pre-Anesthesia Evaluation 06/12/25 0851 MR#: [id number] Acct: [id number] Name: KRISTOPHER WALSH Rep #:[id number] : 1990 34 From: Kevin Vazquez MD PCP: Dr. Bertrand Wallace MD Status:REG S DC Y Race: C Location: [place] [address] Kevin Vazquez MD on 06/12/25 at 0915 Addendum Preop blood pressure is 102/64 06/12/25 0915 <Electronically signed by Kevin ulloa MD> Date _ Kevin Vazquez MD cc: ~* Signed ASA Classification* ASA Classification ASA Classification: 2 Assessment & Plan Anesthesia* Anesthesia Assessment Anesthesia Assessment: Discussed sedation and/or anesthesia options, risks, benefits, and alternatives with patient/parents/legal guardian/POA. Questions invited. The patient/parents/legal guardian/POA seems to understand and agrees to proceedwith anesthesia plan. Reviewed the physical assessment, medical history, allergy history and patient home medications list prior to surgery/procedure/anesthetic and documented any changes. Performed airway and anesthesia risk assessments. Anesthesia Type Anesthesia Type: MAC History Source History Obtained from:: Patient and Chart Anesthesia Focused Assessment* Temperature: 98.8 F Pulse Rate: 67 Respiratory Rate: 16 Pulse Ox: 100 Oxygen Delivery Method: Room Air Airway Assessment Mouth opens: >3 cm Mallampati Score: I Teeth Condition: Intact Neck Range of motion (ROM): Full ROM Labs Anesthesia Preop lab: CBC WBC 14.3 K/mm3 (4.4-11.0) H 10/11/17 21:40 7 RBC 4.65 M/mm3 (4.2-5.4) 10/11/17 21:40 10/11/17 Hgb 14.8 g/dl (12.0-15.0) 10/11/17 21:40 10/11/17 Hct 42.8 % (37-47) 10/11/17 21:40 10/11/17 Plt Count 210 K/mm3 (150-450) 10/11/17 21:40 10/11/17 CHEMISTRY Potassium 4.3 mmol/L (3.5-5.1) 10/11/17 21:40 10/11/17 Sodium 140 mmol/L (136-145) 10/11/17 21:40 10/11/17 BUN 19 mg/dL (7-18) H 10/11/17 21:40 10/11/17 Creatinine 0.92 mg/dL (0.55-1.02) 10/11/17 21:40 10/11/17 Glucose 157 mg/dL (70-110) H 10/11/17 21:40 10/11/17 POC Glucose 90 mg/dL (70-110) 02/10/19 00:53 02/10/19 COAG Pre-Assessment Diagnosis/Proposed Procedure Planned Operative Procedure(s): Colonoscopy Anesthesia History 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 When Was Last Pacemaker Check QUESTION #4 FULL TEXT: You/Your Family Experience fever (hyperthermia) with Anesthesia Last Oral Intake Last Oral intake: Last Oral Intake NPO since 19:45 06/12/25 08:16 Meds taken in AM with sips of No 06/12/25 08:16 water? 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 Female Yes 06/07/25 13:01 HX of Motion Sickness Yes 06/07/25 13:01 HX of N/V After Surgery No 06/07/25 13:01 Non-Smoker Yes 06/07/25 13:01 Duration of Surgery greater No 06/07/25 13:01 than 60 minutes Number of Risk Factors 3 06/07/25 13:01 PONV Score Moderate Risk 06/07/25 13:01 Height & Weight Height & Weight: Anesthesia: Height & Weight Height 5 ft 5 in 06/12/25 08:16 Weight: 57 kg 06/12/25 08:16 Body Mass Index (BMI) 20.9 06/12/25 08:16 Respiratory Assessment Respiratory Assessment - wind projects supervisor: Respiratory Tract Infection Hx - wind projects supervisor Hx Respiratory Tract Infection No 06/07/25 13:01 STOP Sleep Apnea STOP Sleep Apnea - wind projects supervisor: STOP Sleep Apnea - wind projects supervisor Hx Hypertension No 06/07/25 13:01 Hx Sleep Apnea No 06/07/25 13:01 CPAP BIPAP Do you snore loudly (louder No 06/07/25 13:01 than talking or can be heard Do you often feel tired/ No 06/07/25 13:01 fatigued/ sleepy during daytime? Has anyone observed you stop No 06/07/25 13:01 breathing during sleep? STOP Results Negative 06/07/25 13:01 QUESTION #5 FULL TEXT : Do you snore loudly (louder than talking or can be heard through closed doors)? 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 Specify any problems Hx of Preganancy in last 3 No 06/07/25 13:01 Months Nurse Filling Out Transfusion JZOLLINGE 06/07/25 13:01 & Questions: Date: 06/07/25 06/07/25 13:01 Time: 13:02 06/07/25 13:01 Patient unable to answer at this time (ie. confused, unrespo /Reproduction History /Reproductive History - wind projects supervisor: /Reproductive Hx- wind projects supervisor Hx Now No 06/07/25 13:01 Gestational Age (in weeks): EDC: Hx Hx Para Hx Section SAB No 06/07/25 13:01 Active Medications Active Medications: Current Medications Generic Name Dose Route Start Last Admin Trade Name Freq PRN Reason Stop Dose Admin Lactated Ringer's 1,000 mls @ 15 mls/hr 06/12/25 08:15 06/12/25 08:23 IV 15 mls/hr .Q48H ANDREW Administration PFSH Medical History Insulin dependent diabetes mellitus Loss of consciousness Dietary restriction Non-smoker Celiac disease Home Medications ?Medication ?Instructions ?Recorded ?Last Taken ?Type insulin lispro 100 unit/mL 1 sliding scale dose SQ NATHAN LY 02/10/19 Unknown History subcutaneous solution (Humalog U-100 Insulin) Allergy/AdvReac Type Severity Reaction Status Date / Time gluten Allergy Other Verified 06/07/25 12:56 adhesive tape AdvReac Rash Verified 06/07/25 12:56 Family History Mother Osteoporosis Skin cancer Thyroid disorder Father Cancer throat Surgical History (Updated 06/12/25 @ 08:[address] Kevin Vazquez MD) H/O esophagogastroduodenoscopy Encounter for Essure implantation Social History Smoking Status: Never smoker Review of Systems (Anesthesia) ROS Narrative System reviewed and no additional complaints, except as documented. 06/12/25 0859 <Electronically signed by Kevin ulloa MD> Date _ Kevin Vazquez MD Cosigner Signature: Date CC: ~ Signed [facility] Work Phone: Consult note Author Yrn Sheets [facility] Note Date/Time June 12, 2025 9: 58am [facility] Medical Records Department [address] [place] [address] Anesthesia Postop Eval I 06/12/25 0957 MR#: [id number] Acct: [id number] Name: KRISTOPHER WALSH Rep #:[id number] : 1990 34 From: Yrn Sheets PCP: Dr. Bertrand Wallace MD Status:REG S DC Y Race: C Location: [place] [address] Anesthesia: Postop Eval I Current Vital Signs Temperature: 97.8 F Pulse Rate: 78 Blood Pressure: 104/66 Respiratory Rate: 16 Pulse Ox: 99 Oxygen Delivery Method: Room Air Assessment Airway patent: Yes Spontaneous unlabored respirations: Yes Mental status: Awake nausea: No Vomiting: No Anesthesia Complication: No Fluid Hydration Crystalloid volume administer (ml): 600 Total IV fluid infused: 600 Progress Note Anesthesia document: Postop Eval 1 completed: Yes 06/12/2558 <Electronically signed by Yrn Sheets > Date _ Yrn Torres Signature: Date CC: ~ Signed [facility] Work Phone: Evaluation note* Diagnosis Refractive error Unspecified disorder of refraction and accommodation [facility] Diagnosis Myopic astigmatism of both eyes [facility]* Diagnosis S/P LASIK (laser assisted in situ keratomileusis)- Primary Other states following surgery of eye and adnexa [facility] Diagnosis Type 1 diabetes mellitus (HCC)- Primary Type I (juvenile type) diabetes mellitus without mention of complication, not stated as uncontrolled Celiac disease 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 Insulin pump in place Insulin pump [facility] Diagnosis Type 1 diabetes mellitus (HCC) Type I (juvenile type) diabetes mellitus without mention of complication, not stated as uncontrolled [facility] Diagnosis Controlled diabetes mellitus type 1 without complications (HCC)- Primary Type I (juvenile type) diabetes mellitus without mention of complication, not stated as uncontrolled [facility] Diagnosis 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 [facility] Diagnosis Controlled diabetes mellitus type 1 without complications (HCC)- Primary Type I (juvenile type) diabetes mellitus without mention of complication, not stated as uncontrolled [facility] Diagnosis Controlled diabetes mellitus type 1 without complications (HCC)- Primary Type I (juvenile type) diabetes mellitus without mention of complication, not stated as uncontrolled Insulin pump titration Fitting and adjustment of insulin pump Malaise and fatigue Other malaise and fatigue [facility] Diagnosis Elevated antinuclear antibody (ELI) level- Primary Other and unspecified nonspecific immunological findings [facility] Diagnosis Malaise and fatigue- Primary Other malaise and fatigue Positive ELI (antinuclear antibody) Other and unspecified nonspecific immunological findings History of type 1 diabetes mellitus Personal history of other endocrine, metabolic, and immunity disorders History of celiac disease Personal history of other diseases of digestive system [facility] Diagnosis Encounter for IUD insertion- Primary Encounter for insertion of intrauterine contraceptive device [facility] Diagnosis Encounter for cosmetic surgery- Primary Other plastic surgery for unacceptable cosmetic appearance [facility] Diagnosis Type 1 diabetes mellitus (HCC) Type I (juvenile type) diabetes mellitus without mention of complication, not stated as uncontrolled Insulin pump in place Insulin pump status [facility] Diagnosis Type 1 diabetes mellitus (HCC) Type I (juvenile type) diabetes mellitus without mention of complication, not stated as uncontrolled Insulin pump in place Insulin pump status [facility]* Diagnosis RLS (restless legs syndrome)- Primary Restless legs syndrome (RLS) Numbness and tingling Disturbance of skin sensation [facility] Diagnosis Type 1 diabetes mellitus without retinopathy (HCC)- Primary Type I (juvenile type) diabetes mellitus without mention of complication, not stated as uncontrolled History of laser refractive surgery Other states following surgery of eye and adnexa [facility]* Diagnosis Type 1 diabetes mellitus (HCC)- Primary Type I (juvenile type) diabetes mellitus without mention of complication, not stated as uncontrolled [facility]* Diagnosis Controlled diabetes mellitus type 1 without complications (HCC)- Primary Type I (juvenile type) diabetes mellitus without mention of complication, not stated as uncontrolled [facility] Diagnosis Type 1 diabetes mellitus (HCC) Type I (juvenile type) diabetes mellitus without mention of complication, not stated as uncontrolled [facility]* Diagnosis Celiac disease Controlled diabetes mellitus type 1 without complications (HCC) Type I (juvenile type) diabetes mellitus without mention of complication, not stated as uncontrolled [facility]* Diagnosis Controlled diabetes mellitus type 1 without complications (HCC)- Primary Type I (juvenile type) diabetes mellitus without mention of complication, not stated as uncontrolled [facility]* Diagnosis Type 1 diabetes mellitus (HCC)- Primary Type I (juvenile type) diabetes mellitus without mention of complication, not stated as uncontrolled [facility]* Diagnosis Type 1 diabetes mellitus (HCC)- Primary Type I (juvenile type) diabetes mellitus without mention of complication, not stated as uncontrolled [facility]* Diagnosis Diarrhea, unspecified type- Primary LLQ pain Abdominal pain, left lower quadrant [facility]* Diagnosis Type 1 diabetes mellitus without retinopathy (HCC)- Primary Type I (juvenile type) diabetes mellitus without mention of complication, not stated as uncontrolled History of laser refractive surgery Other states following surgery of eye and adnexa Punctate keratitis of right eye Punctate keratitis [facility]* Diagnosis Dysuria- Primary [facility]* Diagnosis Diarrhea, unspecified type LLQ pain Abdominal pain, left lower quadrant documented in this encounter [facility] note* Diagnosis Type 1 diabetes mellitus (HCC)- Primary Type I (juvenile type) diabetes mellitus without mention of complication, not stated as uncontrolled RLS (restless legs syndrome) Restless legs syndrome (RLS) Screening for depression Encounter for screening examination for other mental health and behavioral disorders documented in this encounter [facility] note* Diagnosis Type 1 diabetes mellitus (HCC) Type I (juvenile type) diabetes mellitus without mention of complication, not stated as uncontrolled Insulin pump in place Insulin pump status documented in this encounter [facility] note* Diagnosis Type 1 diabetes mellitus (HCC) Type I (juvenile type) diabetes mellitus without mention of complication, not stated as uncontrolled Insulin pump in place Insulin pump status documented [facility]* Diagnosis Type 1 diabetes mellitus (HCC) Type I (juvenile type) diabetes mellitus without mention of complication, not stated as uncontrolled Insulin pump in place Insulin pump status documented in this encounter [facility] note* Diagnosis Type 1 diabetes mellitus (HCC) Type I (juvenile type) diabetes mellitus without mention of complication, not stated as uncontrolled Insulin pump in place Insulin pump status documented in this encounter [facility] note* Diagnosis Encounter for IUD removal- Primary Encounter for removal of intrauterine contraceptive device documented in this encounter [facility] note* Diagnosis Diarrhea, unspecified type- Primary Left lower quadrant abdominal pain Celiac disease (HCC) Celiac disease documented in this encounter [facility] noteNo assessment information [facility] Work [facility]* Diagnosis Lymphocytic colitis- Primary Other and unspecified noninfectious gastroenteritis and colitis documented in this encounter [facility] note* Diagnosis Type 1 diabetes mellitus (HCC)- Primary Type I (juvenile type) diabetes mellitus without mention of complication, not stated as uncontrolled documented in this encounter [facility] for referral (narrative)* Outpatient Procedure (Routine) - Authorized Specialty Diagnoses / Procedures Referred By [place] tidwell Referred To Contact [facility] Diagnoses Encounter for IUD insertion Procedures INSERT INTRAUTERINE DEVICE LEVONORGESTREL IU 52MG 5 YR INSERT INTRAUTERINE DEVICE Shalini Hawk APRN.CNM [address] [place] [address] [facility] [place] [address] [place] [address] Referral ID Status Reason Start Date Expiration Date Visits Requested Visits Authorized [id number] Authorized Auto-Generat ed Referral 12/29/2022 12/29/2023 1 1 [facility] for referral (narrative)* Diagnostic Procedure Only (Routine) - Closed Specialty Diagnoses / Procedures Referred By Contac t Referred To Contact XR IMAGING Diagnoses Diarrhea, unspecified type LLQ pain Procedures XR ABDOMEN 1V SUPINE RADIOLOGIC EXAM ABDOMEN 1 VIEW Maya Rothman PA-C [address] [place] [address] [place] [address] Referral ID Status Reason Start Date Expiration Date V isits Requested Visits Authorized [id number] Closed Auto-Generate d Referral 02/14/2024 03/15/2025 1 1 * Consult, Test, Treat (Routine) - Authorized Specialty Diagnoses / Procedures Referred By Contac t Referred To Contact Gastroenterology Diagnoses Diarrhea, unspecified type LLQ pain Procedures CONSULT TO GASTROENTEROLOGY OFFICE/OUTPATIENT [facility] 60 MINUTES Maya Rothman PA-C [address] [place] [address] Referral ID Status Reason Start Date Expiration Date Visits Requested Visits Authorized [id number] Authorized PCP Requested Referral 02/14/2024 02/13/2025 1 1 [facility] for referral (narrative)* Diagnostic Procedure Only (Routine) - Closed Specialty Diagnoses / Procedures Referred By Contac t Referred To Contact XR IMAGING Diagnoses Diarrhea, unspecified type LLQ pain Procedures XR ABDOMEN 1V SUPINE RADIOLOGIC EXAM ABDOMEN 1 VIEW Maya Rothman PA-C [address] [place] [address] [place] [address] Referral ID Status Reason Start Date Expiration Date V isits Requested Visits Authorized [id number] Closed Auto-Generate d Referral 02/14/2024 03/15/2025 1 1 [facility])No reason for referral information availableBaton [place] [facility] Work Phone: Reason for visit Narrative* Diagnostic Procedure Only (Routine) - Closed Specialty Diagnoses / Procedures Referred By Contac t Referred To Contact XR IMAGING Diagnoses Diarrhea, unspecified type LLQ pain Procedures XR ABDOMEN 1V SUPINE RADIOLOGIC EXAM ABDOMEN 1 VIEW Maya Rothman PA-C [address] [facility] [place] [place] [address] [place] [address] Referral ID Status Reason Start Date Expiration Date V isits Requested Visits Authorized [id number] Closed Auto-Generate d Referral 02/14/2024 03/15/2025 1 1 [facility] Medications Administered Section Active Administered Medications - up to 3 most recent administrations Medication Order MAR Action Action Date Dose Rate Site proparacaine 0.5 % 1 Drop (ALCAINE) 1 Drop, BOTH EYES, DIRECTED, Starting on Wed01/21/22 at 1300, Until Wed01/22/22 at 0059, Administer for applanation tonometry, pneumo tonometry, tonopen tonometry, or pachymetry. In the event of a proparacaine shortage, administer tetracaine 0.5% ophthalmic drops 1 drop in both eyes as directed for pneumo tonometry, tonopen tonometry, or pachymetry, [facility]IC MED ORDERS Given 01/21/2022 1:00 PM EDT 1 Drop tropicamide 1 % 1 Drop (MYDRIACYL) 1 Drop, BOTH EYES, DIRECTED, Starting on Wed01/21/22 at 1300, Until Wed01/22/22 at 0059, Administer for dilation, OP[facility] CLINIC MED ORDERS Given 01/21/2022 1:00 PM EDT 1 Drop Inactive Administered Medications - up to 3 most recent administrations Medication Order MAR Action Action Date Dose Rate Site levonorgestrel 21 mcg/24 hours (8 yrs) 52 mg 1 Each intrauterine device (MIRENA) 1 Each, INTRAUTERINE, ONCE (UP TO 30 DAYS AMB), 1 dose, On Wed12/29/22 at 1000, Hazardous Potential Reproductive Risk Drug: Use appropriate PPE. Given 12/29/2022 10:10 AM EST 1 Each Active Administered Medications - up to 3 most recent administrations Medication Order MAR Action Action Date Dose Rate Site PHENYLephrine 2.5 % 1 Drop (AK-DILATE, ABDELRAHMAN-SYNEPHRINE) 1 Drop, BOTH EYES, DIRECTED, Starting on Wed04/09/23 at 0900, Until Wed04/09/23 at 2058, Administer for dilation PROTECT FROM LIGHT Given 04/09/2023 8:53 AM EDT 1 Drop proparacaine 0.5 % 1 Drop (ALCAINE) 1 Drop, BOTH EYES, DIRECTED, Starting on Wed04/09/23 at 0900, Until Wed04/09/23 at 2058, Administer for pneumo tonometry, tonopen tonometry, or pachymetry. In the event of a proparacaine shortage, administer tetracaine 0.5% ophthalmic drops 1 drop in the left eye as directed for pneumo tonometry, tonopen tonometry, or pachymetry Given 04/09/2023 8:53 AM EDT 1 Drop tropicamide 1 % 1 Drop (MYDRIACYL) 1 Drop, BOTH EYES, DIRECTED, Starting on Wed04/09/23 at 0900, Until Wed04/09/23 at 2058, Administer for dilation Given 04/09/2023 8:53 AM EDT 1 Drop Reason for Referral Specialty Diagnoses / Procedures Referred By [place] tidwell Referred To Contact Endocrinology Diagnoses Controlled diabetes mellitus type 1 without complications (HCC) Procedures CONSULT TO ENDOCRINOLOGY OFFICE/OUTPATIENT [facility] 60-74 MINUTES Bertrand Wallace MD [address] [place] [address] Referral ID Status Reason Start Date Expiration Date Visits Requested Visits Authorized [id number] Authorized PCP Requested Referral 2 09/29/2023 1 1 Specialty Diagnoses / Procedures Referred By [place] tidwell Referred To Contact Rheumatology Diagnoses Elevated antinuclear antibody (ELI) level Procedures CONSULT TO RHEUM/IMMUN DISEASE OFFICE/OUTPATIENT [facility] 60-74 MINUTES Arleth Haynes APRN.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 CLERK [address] [place] [address] Referral ID Status Reason Start Date Expiration Date Visits Requested Visits Authorized [id number] Authorized PCP Requested Referral 2 10/28/2023 1 1 Specialty Diagnoses / Procedures Referred By [place] tidwell Referred To Contact Diagnoses Malaise and fatigue Positive ELI (antinuclear antibody) History of type 1 diabetes mellitus History of celiac disease Procedures CONSULT TO WELLNESS PHYSICIAN OFFICE/OUTPATIENT [facility] HIGH MDM 60-74 MINUTES Zoë Cool MD [address] [place] [address] Referral ID Status Reason Start Date Expiration Date Visits Requested Visits Authorized [id number] Authorized PCP Requested Referral 11/19/2022 11/19/2023 1 1 Specialty Diagnoses / Procedures Referred By [place] tidwell Referred To Contact Diagnoses Controlled diabetes mellitus type 1 without complications (HCC) Insulin pump in place Bertrand Wallace MD [address] [place] [address] Referral ID Status Reason Start Date Expiration Date Visits Re quested Visits Authorized [id number] Closed 1 1 Referral ID Status Reason Start Date Expiration Date V isits Requested Visits Authorized [id number] Pending Review 08/08/2024 10/07/2024 1 1 Summary Purpose Family History No Family History Records Found Relationship Condition Age at Onset Recorded Date/T koby mother Osteoporosis Unknown Malignant neoplasm of skin Unknown Disorder of thyroid Unknown father Malignant neoplasm Unknown Advance Directives No Advanced Directives Records Found Advance Directive Response Recorded Date/ Time Advance Directives No October 10:10pm Advance Directive Response Recorded Date/ Time Do you have a Healthcare Power of Television Receiver Analyzer? No June 07, 2025 1:01pm Advance Directives No October 10:10pm Chief Complaint and Reason for Visit Chief Complaint Admit Date diarrhea, LLQ abd pain May 21, 2025 5 :48pm CHANGE IN BOWELS May 22, 2025 2:56 pm Reason for Visit Admit Date Encounter for screening for malignant ne oplasm of colon May 22, 2025 2:56pm Reason for Visit Admit Date Encounter for screening for malignant ne oplasm of colon May 22, 2025 2:56pm Diarrhea June 12, 2025 7: 50am Encounter for screening for malignant ne oplasm of colon June 12, 2025 7:50am Additional Source Comments Source Comments (unrecognize d section and content) In the event this informatio n is protected by the Federal Confidentiality of Alcohol and Drug Abuse Patient Records regulations: The Federal rules restrict any use of the information to criminally investigate or prosecute any alcohol or drug abuse patient.[facility] the event this information is protected by the Federal Confidentiality of Alcohol and Drug Abuse Patient Records regulations: The Federal rules restrict any use of the information to criminally investigate or prosecute any alcohol or drug abuse patient.[facility] the event this information is protected by the Federal Confidentiality of Alcohol and Drug Abuse Patient Records regulations: The Federal rules restrict any use of the information to criminally investigate or prosecute any alcohol or drug abuse patient.[facility] the event this information is protected by the Federal Confidentiality of Alcohol and Drug Abuse Patient Records regulations: The Federal rules restrict any use of the information to criminally investigate or prosecute any alcohol or drug abuse patient.[facility] the event this information is protected by the Federal Confidentiality of Alcohol and Drug Abuse Patient Records regulations: The Federal rules restrict any use of the information to criminally investigate or prosecute any alcohol or drug abuse patient.[facility] Hospital[facility] the event this information is protected by the Federal Confidentiality of Alcohol and Drug Abuse Patient Records regulations: The Federal rules restrict any use of the information to criminally investigate or prosecute any alcohol or drug abuse patient.[facility] Hospital[facility] the event this information is protected by the Federal Confidentiality of Alcohol and Drug Abuse Patient Records regulations: The Federal rules restrict any use of the information to criminally investigate or prosecute any alcohol or drug abuse patient.[facility] Hospital[facility] the event this information is protected by the Federal Confidentiality of Alcohol and Drug Abuse Patient Records regulations: The Federal rules restrict any use of the information to criminally investigate or prosecute any alcohol or drug abuse patient.[facility] HospitalIn the event this information is protected by the Federal Confidentiality of Alcohol and Drug Abuse Patient Records regulations: The Federal rules restrict any use of the information to criminally investigate or prosecute any alcohol or drug abuse patient.[facility] HospitalIn the event this information is protected by the Federal Confidentiality of Alcohol and Drug Abuse Patient Records regulations: The Federal rules restrict any use of the information to criminally investigate or prosecute any alcohol or drug abuse patient.[facility] HospitalIn the event this information is protected by the Federal Confidentiality of Alcohol and Drug Abuse Patient Records regulations: The Federal rules restrict any use of the information to criminally investigate or prosecute any alcohol or drug abuse patient.[facility] HospitalIn the event this information is protected by the Federal Confidentiality of Alcohol and Drug Abuse Patient Records regulations: The Federal rules restrict any use of the information to criminally investigate or prosecute any alcohol or drug abuse patient.[facility] HospitalIn the event this information is protected by the Federal Confidentiality of Alcohol and Drug Abuse Patient Records regulations: The Federal rules restrict any use of the information to criminally investigate or prosecute any alcohol or drug abuse patient.[facility] HospitalIn the event this information is protected by the Federal Confidentiality of Alcohol and Drug Abuse Patient Records regulations: The Federal rules restrict any use of the information to criminally investigate or prosecute any alcohol or drug abuse patient.[facility] HospitalIn the event this information is protected by the Federal Confidentiality of Alcohol and Drug Abuse Patient Records regulations: The Federal rules restrict any use of the information to criminally investigate or prosecute any alcohol or drug abuse patient.[facility] HospitalIn the event this information is protected by the Federal Confidentiality of Alcohol and Drug Abuse Patient Records regulations: The Federal rules restrict any use of the information to criminally investigate or prosecute any alcohol or drug abuse patient.[facility] HospitalIn the event this information is protected by the Federal Confidentiality of Alcohol and Drug Abuse Patient Records regulations: The Federal rules restrict any use of the information to criminally investigate or prosecute any alcohol or drug abuse patient.[facility] HospitalIn the event this information is protected by the Federal Confidentiality of Alcohol and Drug Abuse Patient Records regulations: The Federal rules restrict any use of the information to criminally investigate or prosecute any alcohol or drug abuse patient.[facility] HospitalIn the event this information is protected by the Federal Confidentiality of Alcohol and Drug Abuse Patient Records regulations: The Federal rules restrict any use of the information to criminally investigate or prosecute any alcohol or drug abuse patient.[facility] HospitalIn the event this information is protected by the Federal Confidentiality of Alcohol and Drug Abuse Patient Records regulations: The Federal rules restrict any use of the information to criminally investigate or prosecute any alcohol or drug abuse patient.[facility] HospitalIn the event this information is protected by the Federal Confidentiality of Alcohol and Drug Abuse Patient Records regulations: The Federal rules restrict any use of the information to criminally investigate or prosecute any alcohol or drug abuse patient.[facility] HospitalIn the event this information is protected by the Federal Confidentiality of Alcohol and Drug Abuse Patient Records regulations: The Federal rules restrict any use of the information to criminally investigate or prosecute any alcohol or drug abuse patient.[facility] HospitalIn the event this information is protected by the Federal Confidentiality of Alcohol and Drug Abuse Patient Records regulations: The Federal rules restrict any use of the information to criminally investigate or prosecute any alcohol or drug abuse patient.[facility] HospitalIn the event this information is protected by the Federal Confidentiality of Alcohol and Drug Abuse Patient Records regulations: The Federal rules restrict any use of the information to criminally investigate or prosecute any alcohol or drug abuse patient.[facility] HospitalIn the event this information is protected by the Federal Confidentiality of Alcohol and Drug Abuse Patient Records regulations: The Federal rules restrict any use of the information to criminally investigate or prosecute any alcohol or drug abuse patient.[facility] HospitalIn the event this information is protected by the Federal Confidentiality of Alcohol and Drug Abuse Patient Records regulations: The Federal rules restrict any use of the information to criminally investigate or prosecute any alcohol or drug abuse patient.[facility] HospitalIn the event this information is protected by the Federal Confidentiality of Alcohol and Drug Abuse Patient Records regulations: The Federal rules restrict any use of the information to criminally investigate or prosecute any alcohol or drug abuse patient.[facility] HospitalIn the event this information is protected by the Federal Confidentiality of Alcohol and Drug Abuse Patient Records regulations: The Federal rules restrict any use of the information to criminally investigate or prosecute any alcohol or drug abuse patient.[facility] HospitalIn the event this information is protected by the Federal Confidentiality of Alcohol and Drug Abuse Patient Records regulations: The Federal rules restrict any use of the information to criminally investigate or prosecute any alcohol or drug abuse patient.[facility] HospitalIn the event this information is protected by the Federal Confidentiality of Alcohol and Drug Abuse Patient Records regulations: The Federal rules restrict any use of the information to criminally investigate or prosecute any alcohol or drug abuse patient.[facility] HospitalIn the event this information is protected by the Federal Confidentiality of Alcohol and Drug Abuse Patient Records regulations: The Federal rules restrict any use of the information to criminally investigate or prosecute any alcohol or drug abuse patient.[facility] HospitalIn the event this information is protected by the Federal Confidentiality of Alcohol and Drug Abuse Patient Records regulations: The Federal rules restrict any use of the information to criminally investigate or prosecute any alcohol or drug abuse patient.[facility] HospitalIn the event this information is protected by the Federal Confidentiality of Alcohol and Drug Abuse Patient Records regulations: The Federal rules restrict any use of the information to criminally investigate or prosecute any alcohol or drug abuse patient.[facility] HospitalIn the event this information is protected by the Federal Confidentiality of Alcohol and Drug Abuse Patient Records regulations: The Federal rules restrict any use of the information to criminally investigate or prosecute any alcohol or drug abuse patient.[facility] HospitalIn the event this information is protected by the Federal Confidentiality of Alcohol and Drug Abuse Patient Records regulations: The Federal rules restrict any use of the information to criminally investigate or prosecute any alcohol or drug abuse patient.[facility] HospitalIn the event this information is protected by the Federal Confidentiality of Alcohol and Drug Abuse Patient Records regulations: The Federal rules restrict any use of the information to criminally investigate or prosecute any alcohol or drug abuse patient.[facility] HospitalIn the event this information is protected by the Federal Confidentiality of Alcohol and Drug Abuse Patient Records regulations: The Federal rules restrict any use of the information to criminally investigate or prosecute any alcohol or drug abuse patient.[facility] HospitalIn the event this information is protected by the Federal Confidentiality of Alcohol and Drug Abuse Patient Records regulations: The Federal rules restrict any use of the information to criminally investigate or prosecute any alcohol or drug abuse patient.[facility] HospitalIn the event this information is protected by the Federal Confidentiality of Alcohol and Drug Abuse Patient Records regulations: The Federal rules restrict any use of the information to criminally investigate or prosecute any alcohol or drug abuse patient.[facility] HospitalIn the event this information is protected by the Federal Confidentiality of Alcohol and Drug Abuse Patient Records regulations: The Federal rules restrict any use of the information to criminally investigate or prosecute any alcohol or drug abuse patient.[facility] HospitalIn the event this information is protected by the Federal Confidentiality of Alcohol and Drug Abuse Patient Records regulations: The Federal rules restrict any use of the information to criminally investigate or prosecute any alcohol or drug abuse patient.[facility] HospitalIn the event this information is protected by the Federal Confidentiality of Alcohol and Drug Abuse Patient Records regulations: The Federal rules restrict any use of the information to criminally investigate or prosecute any alcohol or drug abuse patient.[facility] HospitalIn the event this information is protected by the Federal Confidentiality of Alcohol and Drug Abuse Patient Records regulations: The Federal rules restrict any use of the information to criminally investigate or prosecute any alcohol or drug abuse patient.[facility] HospitalIn the event this information is protected by the Federal Confidentiality of Alcohol and Drug Abuse Patient Records regulations: The Federal rules restrict any use of the information to criminally investigate or prosecute any alcohol or drug abuse patient.[facility] HospitalIn the event this information is protected by the Federal Confidentiality of Alcohol and Drug Abuse Patient Records regulations: The Federal rules restrict any use of the information to criminally investigate or prosecute any alcohol or drug abuse patient.[facility] HospitalIn the event this information is protected by the Federal Confidentiality of Alcohol and Drug Abuse Patient Records regulations: The Federal rules restrict any use of the information to criminally investigate or prosecute any alcohol or drug abuse patient.[facility] HospitalIn the event this information is protected by the Federal Confidentiality of Alcohol and Drug Abuse Patient Records regulations: The Federal rules restrict any use of the information to criminally investigate or prosecute any alcohol or drug abuse patient.[facility] HospitalIn the event this information is protected by the Federal Confidentiality of Alcohol and Drug Abuse Patient Records regulations: The Federal rules restrict any use of the information to criminally investigate or prosecute any alcohol or drug abuse patient.[facility] HospitalIn the event this information is protected by the Federal Confidentiality of Alcohol and Drug Abuse Patient Records regulations: The Federal rules restrict any use of the information to criminally investigate or prosecute any alcohol or drug abuse patient.[facility] HospitalIn the event this information is protected by the Federal Confidentiality of Alcohol and Drug Abuse Patient Records regulations: The Federal rules restrict any use of the information to criminally investigate or prosecute any alcohol or drug abuse patient.[facility] HospitalIn the event this information is protected by the Federal Confidentiality of Alcohol and Drug Abuse Patient Records regulations: The Federal rules restrict any use of the information to criminally investigate or prosecute any alcohol or drug abuse patient.[facility] HospitalIn the event this information is protected by the Federal Confidentiality of Alcohol and Drug Abuse Patient Records regulations: The Federal rules restrict any use of the information to criminally investigate or prosecute any alcohol or drug abuse patient.[facility] HospitalIn the event this information is protected by the Federal Confidentiality of Alcohol and Drug Abuse Patient Records regulations: The Federal rules restrict any use of the information to criminally investigate or prosecute any alcohol or drug abuse patient.[facility] HospitalIn the event this information is protected by the Federal Confidentiality of Alcohol and Drug Abuse Patient Records regulations: The Federal rules restrict any use of the information to criminally investigate or prosecute any alcohol or drug abuse patient.[facility] HospitalIn the event this information is protected by the Federal Confidentiality of Alcohol and Drug Abuse Patient Records regulations: The Federal rules restrict any use of the information to criminally investigate or prosecute any alcohol or drug abuse patient.[facility] HospitalIn the event this information is protected by the Federal Confidentiality of Alcohol and Drug Abuse Patient Records regulations: The Federal rules restrict any use of the information to criminally investigate or prosecute any alcohol or drug abuse patient.[facility] HospitalIn the event this information is protected by the Federal Confidentiality of Alcohol and Drug Abuse Patient Records regulations: The Federal rules restrict any use of the information to criminally investigate or prosecute any alcohol or drug abuse patient.[facility] HospitalIn the event this information is protected by the Federal Confidentiality of Alcohol and Drug Abuse Patient Records regulations: The Federal rules restrict any use of the information to criminally investigate or prosecute any alcohol or drug abuse patient.[facility] HospitalIn the event this information is protected by the Federal Confidentiality of Alcohol and Drug Abuse Patient Records regulations: The Federal rules restrict any use of the information to criminally investigate or prosecute any alcohol or drug abuse patient.[facility] HospitalIn the event this information is protected by the Federal Confidentiality of Alcohol and Drug Abuse Patient Records regulations: The Federal rules restrict any use of the information to criminally investigate or prosecute any alcohol or drug abuse patient.[facility] HospitalIn the event this information is protected by the Federal Confidentiality of Alcohol and Drug Abuse Patient Records regulations: The Federal rules restrict any use of the information to criminally investigate or prosecute any alcohol or drug abuse patient.[facility] HospitalIn the event this information is protected by the Federal Confidentiality of Alcohol and Drug Abuse Patient Records regulations: The Federal rules restrict any use of the information to criminally investigate or prosecute any alcohol or drug abuse patient.[facility] Reason for Visit (unrecogniz ed section and content) Reason Comments Refractive evaluation Blurry, UCVA Reason Comments Laser Eye Surgery Both Eyes Reason Comments Follow Up For S/P LASIK DVA OU X 1 DAY Reason Comments DWO for CGM, Insulin Pump and Infusion s upplies. [employer] Reason Comments Diabetes Reason Comments Medication Question Reason Onset Date Comments Refill Request 04/29/2022 Reason Onset Date Comments Diabetes 06/05/2022 Reason Comments [facility] Reason Comments [employer] [facility]--fax requested Reason Comments Orders Reason Comments Forms PRIOR AUTH FOR OMNIP OD Reason Comments Refill Request Reason Onset Date Comments Diabetes 08/28/2022 Reason Comments Consult Reason Comments Follow Up Type 1 diabetes Reason Onset Date Comments Refill Request 10/15/2022 Reason Comments Medication Update Refill auth consent Reason Comments Forms FMLA Reason Comments Patient Question results Patient Update Reason Comments Abnormal Lab Specialty Diagnoses / Procedures Referred By [place] tidwell Referred To Contact Rheumatology Diagnoses Elevated antinuclear antibody (ELI) level Procedures CONSULT TO RHEUM/IMMUN DISEASE OFFICE/OUTPATIENT NEW HIGH MDM 60-74 MINUTES Arleth Haynes APRN.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 CLERK [address] [place] [address] Referral ID Status Reason Start Date Expiration Date V isits Requested Visits Authorized [id number] Closed PCP Requested Referral 10/28/2022 10/28/2023 1 1 Reason Onset Date Comments Insertion Of IUD 12/29/2022 Specialty Diagnoses / Procedures Referred By [place] tidwell Referred To Contact [facility] Diagnoses PMS (premenstrual syndrome) Menorrhagia with regular cycle Procedures INSERT INTRAUTERINE DEVICE LEVONORGESTREL IU 52MG 5 YR INSERT INTRAUTERINE DEVICE Shalini Hawk APRN.[address] [place] [address] [facility] [address] [place] [address] Referral ID Status Reason Start Date Expiration Date V isits Requested Visits Authorized [id number] Closed Auto-Generate d Referral 12/15/2022 12/15/2023 1 1 Reason Comments Consult Reason Onset Date Comments Refill Request 01/29/2023 Reason Onset Date Comments Refill Request 02/08/2023 Reason Comments foot and ankle pain Reason Comments Diabetic Eye Exam Type 1 IDDM Reason Comments Orders DM supplies Reason Comments testing A1C b/o Reason Onset Date Comments Refill Request 09/22/2023 Reason Onset Date Comments Diabetes 12/31/2023 Reason Comments Lab Orders Reason Comments Diarrhea X 3 weeks Reason Onset Date Comments Refill Request 05/08/2024 Reason Comments UTI Reason Onset Date Comments Diabetes 06/08/2024 Reason Onset Date Comments Refill Request 08/08/2024 Reason Onset Date Comments Refill Request 08/08/2024 Medication Problem 08/08/2024 Reason Comments Insurance Authorization Insulin lispro Reason Comments Med Change Request Reason Comments IUD Removal Reason Onset Date Comments Refill Request 01/31/2025 Reason Comments Insurance Authorization Reason Comments Diarrhea Reason Comments Results Care Teams (unrecognized sec tion and content) Mold Designer Relationship Specialty Start Date End Date Bertrand Wallace MD [address] [place], [place] [address] PCP - General Family Practice 04/06/16 Mckenna Gonzalez MD [facility] [address] [address] Endocrinology 01/15/17 Clover Bailon RN [facility] Junior Web Developer 11/18/21 Mold Designer Relationship Specialty Start Date End Date Bertrand Wallace MD [address] [place], [place] [address] PCP - General Family Practice 04/06/16 Mckenna Gonzalez MD [address] [address] Endocrinology 01/15/17 Clover Bailon RN [facility] Junior Web Developer 11/18/21 Mold Designer Relationship Specialty Start Date End Date Bertrand Wallace MD [address] [place] [address] PCP - General Family Practice 04/06/16 Mckenna Gonzalez MD [address] [address] Endocrinology 01/15/17 Clover [facility] Junior Web Developer 11/18/21 Mold Designer Relationship Specialty Start Date End Date Bertrand Wallace MD [address] [place] [address] PCP - General Family Practice 04/06/16 Mckenna Gonzalez MD [address] [address] Endocrinology 01/15/17 Clover Bailon [facility] Junior Web Developer 11/18/21 Mold Designer Relationship Specialty Start Date End Date Bertrand Wallace MD [address] [place], [place] [address] PCP - General Family Practice 04/06/16 Mckenna Gonzalez MD [address] [address] Endocrinology 01/15/17 Clover Bailon RN [facility] Junior Web Developer 11/18/21 Mold Designer Relationship Specialty Start Date End Date Bertrand Wallace MD [address] [place] [address] PCP - General Family Practice 04/06/16 Mckenna Gonzalez MD [address] [address] Endocrinology 01/15/17 Clover Bailon RN [facility] Junior Web Developer 11/18/21 Mold Designer Relationship Specialty Start Date End Date Bertrand Wallace MD [address] [place] [address] PCP - General Family Practice 04/06/16 Mckenna Gonzalez MD [address] [address] Endocrinology 01/15/17 Clover Bailon RN [facility] Junior Web Developer 11/18/21 Mold Designer Relationship Specialty Start Date End Date Bertrand Wallace MD [address] [place] [address] PCP - General Family Medicine 04/06/16 Mckenna Gonzalez MD [address] [address] Endocrinology 01/15/17 Clover Bailon RN [facility] Junior Web Developer 11/18/21 Mold Designer Relationship Specialty Start Date End Date Bertrand Wallace MD [address] [place] [address] PCP - General Family Medicine 04/06/16 Mckenna Gonzalez MD [address] [address] Endocrinology 01/15/17 Clover Bailon RN [facility] Junior Web Developer 11/18/21 Mold Designer Relationship Specialty Start Date End Date Bertrand Wallace MD [address] [place] [address] PCP - General Family Medicine 04/06/16 Mckenna Gonzalez MD [address] [address] Endocrinology 01/15/17 Clover Bailon RN [facility] Junior Web Developer 11/18/21 Mold Designer Relationship Specialty Start Date End Date Bertrand Wallace MD [address] [place] [address] PCP - General Family Medicine 04/06/16 Mckenna Gonzalez MD [address] [address] Endocrinology 01/15/17 Clover Bailon RN [facility] Junior Web Developer 11/18/21 Mold Designer Relationship Specialty Start Date End Date Bertrand Wallace MD [address] [place] [address] PCP - General Family Medicine 04/06/16 Mckenna Gonzalez MD [address] [address] Endocrinology 01/15/17 Clover Bailon RN [facility] Junior Web Developer 11/18/21 Mold Designer Relationship Specialty Start Date End Date Bertrand Wallace MD [address] [place] [address] PCP - General Family Medicine 04/06/16 Mckenna Gonzalez MD [address] [address] Endocrinology 01/15/17 Clover Bailon RN [facility] Junior Web Developer 11/18/21 Mold Designer Relationship Specialty Start Date End Date Bertrand Wallace MD [address] [place] [address] PCP - General Family Medicine 04/06/16 Mckenna Gonzalez MD [address] [address] Endocrinology 01/15/17 Clover Bailon RN [facility] Junior Web Developer 11/18/21 Mold Designer Relationship Specialty Start Date End Date Bertrand Wallace MD [address] [place] [address] PCP - General Family Medicine 04/06/16 Mckenna Gonzalez MD [address] [address] Endocrinology 01/15/17 Clover Bailon RN [facility] Junior Web Developer 11/18/21 Mold Designer Relationship Specialty Start Date End Date Bertrand Wallace MD [address] [place] [address] PCP - General Family Medicine 04/06/16 Mckenna Gonzalez MD [address] [address] Endocrinology 01/15/17 Clover Bailon RN [facility] Junior Web Developer 11/18/21 Mold Designer Relationship Specialty Start Date End Date Bertrand Wallace MD [address] [place] [place] [address] PCP - General Family Medicine 04/06/16 Mckenna Gonzalez MD [address] [address] Endocrinology 01/15/17 Clover Bailon RN [facility] Junior Web Developer 11/18/21 Mold Designer Relationship Specialty Start Date End Date Bertrand Wallace MD [address] [place] [address] PCP - General Family Medicine 04/06/16 Mckenna Gonzalez MD [address] [address] Endocrinology 01/15/17 Clover Bailon RN [facility] Junior Web Developer 11/18/21 Mold Designer Relationship Specialty Start Date End Date Bertrand Wallace MD [address] [place] [address] PCP - General Family Medicine 04/06/16 Mckenna Gonzalez MD [address] [address] Endocrinology 01/15/17 Clover Bailon RN [facility] Junior Web Developer 11/18/21 Mold Designer Relationship Specialty Start Date End Date Bertrand Wallace MD [address] [place] [address] PCP - General Family Medicine 04/06/16 Mckenna Gonzalez MD [address] [address] Endocrinology 01/15/17 Clover Bailon RN [facility] Junior Web Developer 11/18/21 Mold Designer Relationship Specialty Start Date End Date Bertrand Wallace MD [address] [place], [place] [address] PCP - General Family Medicine 04/06/16 Mckenna Gonzalez MD [address] [address] Endocrinology 01/15/17 Clover Bailon RN [facility] Junior Web Developer 11/18/21 Mold Designer Relationship Specialty Start Date End Date Bertrand Wallace MD [address] [place] [address] PCP - General Family Medicine 04/06/16 Mckenna Gonzalez MD [address] [address] Endocrinology 01/15/17 Clover Bailon RN [facility] Junior Web Developer 11/18/21 Mold Designer Relationship Specialty Start Date End Date Bertrand Wallace MD [address] [place] [address] PCP - General Family Medicine 04/06/16 Mckenna Gonzalez MD [address] [address] Endocrinology 01/15/17 Clover Bailon RN [facility] Junior Web Developer 11/18/21 Mold Designer Relationship Specialty Start Date End Date Bertrand Wallace MD [address] [place] [address] PCP - General Family Medicine 04/06/16 Mckenna Gonzalez MD [address] [address] Endocrinology 01/15/17 Clover Bailon RN [facility] Junior Web Developer 11/18/21 Mold Designer Relationship Specialty Start Date End Date Bertrand Wallace MD [address] [place] [address] PCP - General Family Medicine 04/06/16 Mckenna Gonzalez MD [address] [address] Endocrinology 01/15/17 Clover Bailon RN [facility] Junior Web Developer 11/18/21 Mold Designer Relationship Specialty Start Date End Date Bertrand Wallace MD [address] [place] [address] PCP - General Family Medicine 04/06/16 Mckenna Gonzalez MD [address] [address] Endocrinology 01/15/17 Clover Bailon RN [facility] Junior Web Developer 11/18/21 Mold Designer Relationship Specialty Start Date End Date Bertrand Wallace MD [address] [place] [address] PCP - General Family Medicine 04/06/16 Mckenna Gonzalez MD [address] [address] Endocrinology 01/15/17 Clover Bailon RN [facility] Junior Web Developer 11/18/21 Mold Designer Relationship Specialty Start Date End Date Bertrand Wallace MD [address] [place] [address] PCP - General Family Medicine 04/06/16 Mckenna Gonzalez MD [facility] [address] [address] Endocrinology 01/15/17 Clover Bailon RN [facility] Junior Web Developer 11/18/21 Mold Designer Relationship Specialty Start Date End Date Bertrand Wallace MD [address] [place] [address] PCP - General Family Medicine 04/06/16 Mckenna Gonzalez MD [facility] [address] [address] Endocrinology 01/15/17 Clover Bailon RN [facility] Junior Web Developer 11/18/21 Mold Designer Relationship Specialty Start Date End Date Bertrand Wallace MD [address] [place] [address] PCP - General Family Medicine 04/06/16 Mckenna Gonzalez MD [address] [address] Endocrinology 01/15/17 Clover Bailon RN [facility] Junior Web Developer 11/18/21 Mold Designer Relationship Specialty Start Date End Date Bertrand Wallace MD [address] [place] [address] PCP - General Family Medicine 04/06/16 Mckenna Gonzalez MD [address] [address] Endocrinology 01/15/17 Clover Bailon RN [facility] Junior Web Developer 11/18/21 Mold Designer Relationship Specialty Start Date End Date Bertrand Wallace MD [address] [place] [address] PCP - General Family Medicine 04/06/16 Mckenna Gonzalez MD [facility] [address] [address] Endocrinology 01/15/17 Clover Bailon RN [facility] Junior Web Developer 11/18/21 Mold Designer Relationship Specialty Start Date End Date Bertrand Wallace MD [address] [place] [address] PCP - General Family Medicine 04/06/16 Mckenna Gonzalez MD [address] [address] Endocrinology 01/15/17 Clover Bailon RN [facility] Junior Web Developer 11/18/21 Mold Designer Relationship Specialty Start Date End Date Bertrand Wallace MD [address] [place] [address] PCP - General Family Medicine 04/06/16 Mckenna Gonzalez MD [address] [address] Endocrinology 01/15/17 Clover Bailon, [facility] Junior Web Developer 11/18/21 Mold Designer Relationship Specialty Start Date End Date Bertrand Wallace MD [address] [place], [place] [address] PCP - General Family Medicine 04/06/16 Mckenna Gonzalez MD [address] [address] Endocrinology 01/15/17 Maribell Estrada RN [facility] Junior Web Developer 11/11/19 11/18/21 Mold Designer Relationship Specialty Start Date End Date Bertrand Wallace MD [address] [place] [address] PCP - General Family Medicine 04/06/16 Mckenna Gonzalez MD [address] [address] Endocrinology 01/15/17 Mold Designer Relationship Specialty Start Date End Date Bertrand Wallace MD [address] [place] [address] PCP - General Family Medicine 04/06/16 Mckenna Gonzalez MD [address] [address] Endocrinology 01/15/17 Mold Designer Relationship Specialty Start Date End Date Bertrand Wallace MD [address] [place] [address] PCP - General Family Medicine 04/06/16 Mckenna Gonzalez MD [address] [address] Endocrinology 01/15/17 Mold Designer Relationship Specialty Start Date End Date Bertrand Wallace MD [address] [place] [address] PCP - General Family Medicine 04/06/16 Mckenna Gonzalez MD [address] [place] [address] Endocrinology 01/15/17 Mold Designer Relationship Specialty Start Date End Date Bertrand Wallace MD [address] [place] [address] PCP - General Family Medicine 04/06/16 Mckenna Gonzalez MD [address] [place] [address] Endocrinology 01/15/17 Kelly Awan, SENIOR ACTUARIAL ANALYST.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 CLERK [address] [place] [address] [employer] [facility] 10/09/24 Marielos Herrera, SENIOR ACTUARIAL ANALYST.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 CLERK [address] [place] [address] [employer] [facility] 10/09/24 Mold Designer Relationship Specialty Start Date End Date Bertrand Wallace MD [address] [place] [address] PCP - General Family Medicine 04/06/16 Mckenna Gonzalez MD [address] [address] Endocrinology 01/15/17 Kelly Awan SENIOR ACTUARIAL ANALYST.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 CLERK [address] [place] [address] [facility]24 Marielos Herrera SENIOR ACTUARIAL ANALYST.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 CLERK [address] [place] [address] [facility] 10/09/24 Mold Designer Relationship Specialty Start Date End Date Bertrand Wallace MD [address] [place] [address] PCP - General Family Medicine 04/06/16 Mckenna Gonzalez MD [address] [place] [address] Endocrinology 01/15/17 Kelly Awan SENIOR ACTUARIAL ANALYST.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 CLERK [address] [place] [address] [facility] 10/09/24 Marielos Herrera SENIOR ACTUARIAL ANALYST.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 CLERK [address] [place] [address] [facility] 10/09/24 Mold Designer Relationship Specialty Start Date End Date Bertrand Wallace MD [address] [place] [address] PCP - General Family Medicine 04/06/16 Mckenna Gonzalez MD [address] [address] Endocrinology 01/15/17 Kelly Awan APRN.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 CLERK [address] [place] [address] [employer] [facility] 10/09/24 Marielos Herrera APRN.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 CLERK [address] [place] [address] [employer] [facility] 10/09/24 Mold Designer Relationship Specialty Start Date End Date Bertrand Wallace MD [address] [place] [address] PCP - General Family Medicine 04/06/16 Mckenna Gonzalez MD [address] [place] [id number] Endocrinology 01/15/17 Kelly Awan APRN.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 CLERK [address] [place] [address] [employer] [facility] 10/09/24 Marielos Herrera APRN.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 CLERK [address] [place] [address] [employer] [facility] 10/09/24 Mold Designer Relationship Specialty Start Date End Date Bertrand Wallace MD [address] [place] [address] PCP - General Family Medicine 04/06/16 Mckenna Gonzalez MD [address] [place] [phone] Endocrinology 01/15/17 Kelly Awan APRN.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 CLERK [address] [place] [address] [employer] [facility] 10/09/24 Marielos Herrera APRN.[facility] [address] [place] [address] [facility] 10/09/24 Team Status: Active Member Role/Relationship Status Dates Dr. Bertrand Wallace MD Primary Care Provider Active Team Status: Active Member Role/Relationship Status Dates Employee Health Attending Provider Active Start: February 08, 2025 Team Status: Active Member Role/Relationship Status Dates Dr. Bertrand Wallace MD Primary Care Provider Active Start: May 21, 2025 Maya BEYER PA Attending Provider Active Start: May 21, 2025 Maya BEYER PA Referring Provider Active Start: May 21, 2025 Team Status: Inactive Member Role/Relationship Status Dates Dr. Bertrand Wallace MD Primary Care Provider Active Start: May 22, 2025 End: May 22, 2025 Dr. Bertrand Wallace MD Referring Provider Active Start: May 22, 2025 End: May 22, 2025 Dr. Vinay Ochoa MD Attending Provider Active Start: May 22, 2025 End: May 22, 2025 Team Status: Inactive Member Role/Relationship Status Dates Dr. Bertrand Wallace MD Primary Care Provider Active Start: May 21, 2025 End: May 21, 2025 Maya BEYER PA Attending Provider Active Start: May 21, 2025 End: May 21, 2025 Maya BEYER PA Referring Provider Active Start: May 21, 2025 End: May 21, 2025 Team Status: Inactive Member Role/Relationship Status Dates Dr. Bertrand Wallace MD Primary Care Provider Active Start: May 21, 2025 End: May 21, 2025 Maya BEYER PA Attending Provider Active Start: May 21, 2025 End: May 21, 2025 Maya BEYER PA Referring Provider Active Start: May 21, 2025 End: May 21, 2025 Team Status: Inactive Member Role/Relationship Status Dates Dr. Bertrand Wallace MD Primary Care Provider Active Start: May 22, 2025 End: May 22, 2025 Dr. Bertrand Wallace MD Referring Provider Active Start: May 22, 2025 End: May 22, 2025 Dr. Vinay Ochoa MD Attending Provider Active Start: May 22, 2025 End: May 22, 2025 Team Status: Inactive Member Role/Relationship Status Dates Dr. Bertrand Wallace MD Primary Care Provider Active Start: June 12, 2025 End: June 12, 2025 Dr. Bertrand Wallace MD Referring Provider Active Start: June 12, 2025 End: June 12, 2025 Dr. iVnay Ochoa MD Attending Provider Active Start: June 12, 2025 End: June 12, 2025 Team Status: Active Member Role/Relationship Status Dates Dr. Bertrand Wallace MD Primary Care Provider Active Start: June 12, 2025 Dr. Vinay Ochoa MD Attending Provider Active Start: June 12, 2025 Mold Designer Relationship Specialty Start Date End Date Bertrand Wallace MD [address] [place], [place] [address] PCP - General Family Medicine 04/06/16 Mckenna Gonzalez MD [address] [place] [address] Endocrinology 01/15/17 Kelly Awan APRN.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 CLERK [address] [place], [place] [address] [employer] [facility] 10/09/24 Marielos Herrera APRN.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 CLERK [address] [place], [place] [address] [employer] [facility] 10/09/24 INFORMATION SOURCE (unrecogn ized section and content) DATE CREATED AUTHOR [facility]/11/2024 [facility] DATE CREATED AUTHOR AUTHOR'S ORGANIZ ATION 07/04/2025 [facility] DATE CREATED AUTHOR AUTHOR'S ORGANIZ ATION 09/13/2025 [facility] Goals (unrecognized section and content) Goals may be documented in a n alternate sectionGoals may be documented in an alternate section FOR RECORDS PERTAINING TO PATIENTS WHO ARE OR HAVE BEEN ENROLLED IN A CHEMICAL DEPENDENCY/SUBSTANCEABUSE PROGRAM, SOME INFORMATION MAY BE OMITTED. This clinical summary was aggregated from multiple sources. Caution should be exercised in using it in the provision of clinical care. This summary normalizes information from multiple sources, and as a consequence, information in this document may materially change the coding, format and clinical context of patient data. In addition, data may be omitted in some cases. CLINICAL DECISIONS SHOULD BE BASED ON THE PRIMARY CLINICAL RECORDS. [facility] provides no warranty or guarantee of the accuracy or completeness of information in this document.
[2025-10-13 09:44] LABS: AST(SGOT) 21 U/L (<=31); Alanine Aminotransfer ALT/SGPT 20 U/L (<=34); Albumin, Serum 4.5 g/dL (3.5-5.0); Alkaline Phosphatase 54 U/L (35-104); Anion Gap 9 (5-15); BUN 16 mg/dL (4-19); BUN/Creat Ratio 17.6 RATIO (10-20); Calcium,Total 9.6 mg/dL (7.6-11.0); Carbon Dioxide 25.3 mmol/L (21.0-32.0); Chloride 102 mmol/L (98-108); Cholesterol 198 mg/dL (<=200); Globulin 2.5 g/dL (2.2-4.2); Glucose 157 mg/dL (70-99); Low Density Lipoprotein Calc. 99 mg/dL; Potassium 4.1 mmol/L (3.3-5.1); Triglycerides 54 mg/dL; Very Low Density Lipoprotein 11 mg/dL (5-40); cholesterol:hdl ratio screen 2.23
[2025-10-13 11:01] LABS: Creatinine, Urine (random) 53.40 mg/dL (28.00-217.00); Microalbumin,Random Urine < 12.0 mg/L (<20 mg/L)
[2025-10-13 12:48] LABS: Hematocrit 42.0 % (37-47); Hemoglobin 14.5 g/dL (12.0-15.0); Immature Granulocytes Count 0.000 X10^3/uL (0.0-0.0); Mean Corp Hgb Conc 34.5 g/dL (32-36); Mean Corpuscular Volume 92.3 fL (81-99); Mean Platelet Vol. 11.4 fl (6.2-12.0); NRBC Flagged by Analyzer 0 % (0-5); Platelet Count 274 K/mm3 (150-450); RBC Distribution Width CV 11.9 % (11.6-14.6); RBC Distribution Width SD 40.7 fl (35.1-43.9); Red Blood Count 4.55 M/mm3 (4.2-5.4); White Blood Count 5.5 K/mm3 (4.4-11.0)
== END | disposition home or self-care (01) ==
PROVIDERS: PCP Family Medicine; Referring Provider Family Medicine; Visit Provider Family Medicine
DX: E10.9 Type 1 diabetes mellitus without complications (principal)
CPT/HCPCS: 36415; 80053; 80061; 82043; 82570; 83036; 85025